=== PATIENT | female | born 1950 | race Caucasian/White ===

== ENCOUNTER 2017-12-03 18:39 | Inpatient (IN) | payer BC, MEDICARE ==
[~2017-12-03] VITALS: Ht 160 cm; Wt 94.9 kg
[2017-12-03] MEDS ORDERED: NORMAL SALINE IV SCH (18:47)
--- NOTE | 2017-12-03 19:05 | PHYS DOC ---
Adult General Chief Complaint Chief Complaint: weakness, fever HPI HPI Patient is a 67 year old female who presents with complaint of weakness. The patient states that she recently finished taking an antibiotic prescribed by her primary for treatment of urinary tract infection. Patient states that she stopped amoxicillin approximately one week ago. Patient states since treatment she has been feeling weaker. Patient notes that she has been having worsening weakness to the right side of her body which she reports has been present over the past week. The family states that the patient seemed to be leaning towards the right side when trying to ambulate and noticed this first last night. The patient has had history of stroke but patient denies having any residual unilateral deficits from her previous stroke. She states currently she is in no pain but feels very weak and is unable to ambulate under her own power currently. During triage patient found to have a fever. The patient states that she thinks she still has a urinary tract infection is getting sick because of this. Review of Systems Review of Systems Constitutional: Fever, chills[] Eyes: Denies change in visual acuity, redness, or eye pain [] HENT: Denies nasal congestion or sore throat [] Respiratory: Denies cough or shortness of breath [] Cardiovascular: Denies chest pain or edema[] GI: Denies abdominal pain, nausea, vomiting, bloody stools or diarrhea [] : Denies dysuria or hematuria [] Musculoskeletal: Denies back pain or joint pain [] Integument: Denies rash or skin lesions [] Neurologic: Right-sided weakness, denies headache [] Endocrine: Denies polyuria or polydipsia [] All other systems were reviewed and found to be within normal limits, except as documented in this note. Current Medications Current Medications Current Medications Medications (Trade) Dose Ordered Sig/[facility] Start Time Stop Time Status Last Admin Dose Admin Ceftriaxone Sodium 1 gm/ Sodium Chloride 50 ml @ 100 mls/hr 1X ONCE 12/03/17 19:00 12/03/17 19:29 UNV Sodium Chloride 1,560 ml @ 780 mls/hr Q2H 12/03/17 18:47 UNV Physical Exam Physical Exam Constitutional: Alert, afebrile, appears ill. [] HENT: Normocephalic, atraumatic, bilateral external ears normal, oropharynx dry , no oral exudates, nose normal. [] Eyes: PERRLA, EOMI, conjunctiva normal, no discharge. [] Neck: Normal range of motion, no tenderness, supple, no stridor. [] Cardiovascular: Tachycardic, regular rhythm, no murmur [] Lungs & Thorax: Bilateral breath sounds clear to auscultation [] Abdomen: Bowel sounds normal, soft, no tenderness, no masses, no pulsatile masses. [] Skin: Warm, dry, no erythema, no rash. [] Back: No tenderness, no CVA tenderness. [] Extremities: No tenderness, no cyanosis, no clubbing, ROM intact, trace pedal edema bilaterally. [] Neurologic: Alert and oriented X 3, 3.5 out of 5 motor strength in right upper and lower extremity, 4 out of 5 motor strength in left upper and lower extremity , no facial droop, no slurring of speech. [] Current Patient Data Lab Results Laboratory Tests Test 12/03/17 18:43 12/03/17 18:54 Urine Collection Type Unknown Urine Color Yellow Urine Clarity Cloudy Urine pH 6.0 Urine Specific [place] 1.010 Urine Protein 100 mg/dl Urine Glucose (UA) >=1000 mg/dL Urine Ketones (Stick) 40 mg/dL Urine Blood Small Urine Nitrite Neg Urine Bilirubin Neg Urine Urobilinogen Dipstick 0.2 mg/dL Urine Leukocyte Esterase Mod Urine RBC 6-10 /HPF Urine WBC >40 /HPF Urine Squamous Epithelial Cells Few /LPF Urine Bacteria Many /HPF Urine Yeast Present /HPF White Blood Count 7.8 x10^3/uL Red Blood Count 4.56 x10^6/uL Hemoglobin 13.9 g/dL Hematocrit 41.3 % Mean Corpuscular Volume 91 fL Mean Corpuscular Hemoglobin 30 pg Mean Corpuscular Hemoglobin Concent 34 g/dL Red Cell Distribution Width 13.4 % Platelet Count 215 x10^3/uL Neutrophils (%) (Auto) 82 % Lymphocytes (%) (Auto) 9 % Monocytes (%) (Auto) 8 % Eosinophils (%) (Auto) 0 % Basophils (%) (Auto) 1 % Neutrophils # (Auto) 6.4 x10^3uL Lymphocytes # (Auto) 0.7 x10^3/uL Monocytes # (Auto) 0.6 x10^3/uL Eosinophils # (Auto) 0.0 x10^3/uL Basophils # (Auto) 0.0 x10^3/uL Sodium Level 127 mmol/L Potassium Level 4.3 mmol/L Chloride Level 93 mmol/L Carbon Dioxide Level 20 mmol/L Anion Gap 14 Blood Urea Nitrogen 22 mg/dL Creatinine 1.2 mg/dL Estimated GFR (Cockcroft-Gault) 44.9 BUN/Creatinine Ratio 18 Glucose Level 420 mg/dL Lactic Acid Level 1.4 mmol/L Calcium Level 8.5 mg/dL Total Bilirubin 0.7 mg/dL Aspartate Amino Transf (AST/SGOT) 22 U/L Alanine Aminotransferase (ALT/SGPT) 21 U/L Alkaline Phosphatase 87 U/L Total Protein 7.2 g/dL Albumin 2.5 g/dL Albumin/Globulin Ratio 0.5 Lipase 94 U/L Current Medications Medications (Trade) Dose Ordered Sig/[facility]hma Route PRN Reason Start Time Stop Time Status Last Admin Dose Admin Sodium Chloride 1,560 ml @ 780 mls/hr Q2H IV 12/03/17 18:47 12/03/17 19:26 Ceftriaxone Sodium 1 gm/ Sodium Chloride 50 ml @ 100 mls/hr 1X ONCE IV 12/03/17 19:00 12/03/17 19:29 UNV Ceftriaxone Sodium (Rocephin) 1 gm 1X ONCE IVP 12/03/17 19:30 12/03/17 19:31 DC 12/03/17 19:26 Ceftriaxone Sodium (Rocephin) 1 gm STK-MED ONCE IV 12/03/17 19:20 12/03/17 19:21 DC EKG EKG Interpreted by me: Heart rate 91, sinus rhythm, normal intervals, normal axis, no acute ST/T-wave abnormalities present[] Radiology/Procedures Radiology/[place] [address] IMAGING REPORT Signed PATIENT: FRANK GOTTI ACCOUNT: [id number] : 1950 LOCATION: ER AGE: 67 SEX: F EXAM STATUS: REG ER ORD. PHYSICIAN: DANICA HECK MD REASON: right-sided weakness since last night PROCEDURE: CT HEAD WO CONTRAST CT HEAD WO CONTRAST History: right sided weakness since last night, history of breast cancer and uterine cancer Comparison: None. Technique: Noncontrast CT imaging was performed of the head. Exposure: One or more of the following individualized dose reduction techniques were utilized for this examination: 1. Automated exposure control 2. Adjustment of the mA and/or kV according to patient size 3. Use of iterative reconstruction technique. Findings: No acute extra-axial or parenchymal hemorrhage is identified. There is no significant intra-axial mass effect, midline shift, or extra-axial fluid collection. The cassidy-white differentiation of the major vascular territories is preserved. The ventricles, sulci, and cisterns are within normal limits in size and configuration. The mastoid air cells and the visualized paranasal sinuses are aerated. No acute calvarial abnormality is identified. Impression: 1. No acute intracranial abnormality is identified. If there is concern for evolving or acute ischemia, followup CT or MRI could be beneficial. Electronically signed by: Cruz Peoples MD (12/03/2017 7:27 PM) [facility] DICTATED AND SIGNED BY: CRUZ PEOPLES MD DATE: 12/03/171925 CC: DANICA HECK MD; AR DUONG ~ [] Course & Med Decision Making Course & Med Decision Making Pertinent Labs and Imaging studies reviewed. (See chart for details) The patient was started on IV fluids and started on IV Rocephin. The patient has confirmed evidence of active urinary tract infection with early findings of sepsis. The patient does not qualify for severe sepsis protocol at this time will need to be admitted to the hospital for further treatment. Patient's head CT was negative suggesting against acute stroke. The patient was admitted to Dr. Pratt. A consult placed to Dr. Dumont of neurology to follow the patient in hospital.[] Dragon Disclaimer Dragon Disclaimer This electronic medical record was generated, in whole or in part, using a voice recognition dictation system. Departure Departure: Impression: Primary Impression: Urinary tract infection Additional Impressions: Sepsis Uncontrolled diabetes mellitus Right sided weakness Disposition: ADMITTED INPATIENT Admitting Physician: Placido Pratt Condition: STABLE Referrals: AR DUONG (PCP) Problem Qualifiers Primary Impression: Urinary tract infection Urinary tract infection type: site unspecified Hematuria presence: without hematuria Qualified Codes: N39.0 - Urinary tract infection, site not specified Additional Impressions: Sepsis Sepsis type: sepsis due to unspecified organism Qualified Codes: A41.9 - Sepsis, unspecified organism Uncontrolled diabetes mellitus Diabetes mellitus type: type 2 Diabetes mellitus pig caster insulin use: unspecified retirement insulin use status Diabetes mellitus complication status : with hyperglycemia Qualified Codes: E11.65 - Type 2 diabetes mellitus with hyperglycemia DANICA HECK MD Dec 03, 2017 19:05
[2017-12-03] MEDS ORDERED: cefTRIAXone SODIUM 1 GM VIAL IV ONE (19:20)
[2017-12-03 19:23] LABS: BASO % 1 % (0-3); EOS % 0 % (0-3); HEMATOCRIT 41.3 % (36.0-47.0); HEMOGLOBIN 13.9 g/dL (12.0-15.5); LYMPH # 0.7 x10^3/uL (1.0-4.8); LYMPH % 9 % (24-48); MEAN CORPUSCULAR HEMOGLOBIN 30 pg (25-35); MEAN CORPUSCULAR HGB CONC 34 g/dL (31-37); MEAN CORPUSCULAR VOLUME 91 fL (79-100); MONO # 0.6 x10^3/uL (0.0-1.1); MONO % 8 % (0-9); NEUT # 6.4 x10^3uL (1.8-7.7); NEUT % 82 % (31-73); PLATELET COUNT 215 x10^3/uL (140-400); RED BLOOD COUNT 4.56 x10^6/uL (3.50-5.40); RED CELL DISTRIBUTION WIDTH 13.4 % (11.5-14.5); WHITE BLOOD COUNT 7.8 x10^3/uL (4.0-11.0)
--- NOTE | 2017-12-03 19:28 | EKG ---
[address] [address] Test Date: 2017-12-03 Test Time: 19:22:35 Pat Name: FRANK GOTTI Department: Room: Gender: F Wire Stitcher: WALT : 1950 Requested By: DANICA HECK Order Number: [id number] Reading MD: Claude Dutta MD Measurements Intervals [place] Rate: 91 P: 42 CT: 192 QRS: 19 QRSD: 80 T: 0 QT: 410 QTc: 506 Interpretive Statements SINUS RHYTHM PROLONGED QT Electronically Signed On 12-09-2017 13:40:19 CDT by Claude Dutta MD
[2017-12-03] MEDS ORDERED: cefTRIAXone IV Push 1 GM VIAL. IVP ONE (19:30)
--- NOTE | 2017-12-03 19:31 | RAD ---
CT HEAD WO CONTRAST History: right sided weakness since last night, history of breast cancer and uterine cancer Comparison: None. Technique: Noncontrast CT imaging was performed of the head. Exposure: One or more of the following individualized dose reduction techniques were utilized for this examination: 1. Automated exposure control 2. Adjustment of the mA and/or kV according to patient size 3. Use of iterative reconstruction technique. Findings: No acute extra-axial or parenchymal hemorrhage is identified. There is no significant intra-axial mass effect, midline shift, or extra-axial fluid collection. The cassidy-white differentiation of the major vascular territories is preserved. The ventricles, sulci, and cisterns are within normal limits in size and configuration. The mastoid air cells and the visualized paranasal sinuses are aerated. No acute calvarial abnormality is identified. Impression: 1. No acute intracranial abnormality is identified. If there is concern for evolving or acute ischemia, followup CT or MRI could be beneficial. Electronically signed by: Christ Jeffrey MD (12/03/2017 7:27 PM) [facility]
[2017-12-03 19:33] LABS: ALBUMIN 2.5 g/dL (3.4-5.0); ALBUMIN/GLOBULIN RATIO 0.5 (1.0-1.7); CALCIUM 8.5 mg/dL (8.5-10.1); CREATININE 1.2 mg/dL (0.6-1.0); GFR 44.9; POTASSIUM 4.3 mmol/L (3.5-5.1); TOTAL BILIRUBIN 0.7 mg/dL (0.2-1.0); TOTAL PROTEIN 7.2 g/dL (6.4-8.2)
[2017-12-03 19:44] LABS: BACTERIA,URINE MANY /HPF (0-FEW); BILIRUBIN,URINE NEG (NEG); CLARITY,URINE CLOUDY; COLOR,URINE YELLOW; GLUCOSE,URINE >=1000 mg/dL (NEG); NITRITE,URINE NEG (NEG); SQUAMOUS EPITHELIAL CELL,UR FEW /LPF; UROBILINOGEN,URINE 0.2 mg/dL (0.2 mg/dL); WBC,URINE >40 /HPF (0-4)
[2017-12-03 19:45] LABS: YEAST,URINE PRESENT /HPF
[2017-12-03] MEDS: IV NORMAL SALINE 1,000ML 1,000 ML IV SCH ×2 (20:15→23:42)
[2017-12-03] MEDS: INSULIN GLARGINE 300 UNITS/3 ML INSULN.PEN. SQ SCH (21:00)
[2017-12-03] MEDS ORDERED: FLUO40CA2 PO (22:51)
[2017-12-03] MEDS ORDERED: LISI-334 PO (22:51)
[2017-12-03] MEDS ORDERED: NADO20TA PO (22:51)
[2017-12-03] MEDS ORDERED: ALPR1TAB5 PO (22:51)
[2017-12-03] MEDS ORDERED: OMEG-91 PO (22:51)
[2017-12-03] MEDS ORDERED: RANI150C PO (22:51)
[2017-12-03] MEDS ORDERED: PHEN-443 PO (22:51)
[2017-12-03] MEDS ORDERED: ASPI325T8 PO (23:12)
[2017-12-03 23:21] VITALS: BP 119/55
[2017-12-03] MEDS ORDERED: IBUP400T18 PO (23:39)
[2017-12-04] MEDS: IBUPROFEN 400 MG TABLET. PO PRN (00:22)
[2017-12-04 06:07] VITALS: BP 105/66
[2017-12-04] MEDS ORDERED: ALPRAZolam 0.5 MG TABLET PO PRN (06:45)
[2017-12-04] MEDS ORDERED: IBUPROFEN 400 MG TABLET. PO PRN (06:45)
[2017-12-04 07:04] LABS: BASO % 0 % (0-3); CALCIUM 7.9 mg/dL (8.5-10.1); EOS % 0 % (0-3); GFR 55.5; HEMATOCRIT 37.9 % (36.0-47.0); HEMOGLOBIN 12.6 g/dL (12.0-15.5); LYMPH # 0.9 x10^3/uL (1.0-4.8); LYMPH % 10 % (24-48); MEAN CORPUSCULAR HEMOGLOBIN 30 pg (25-35); MEAN CORPUSCULAR HGB CONC 33 g/dL (31-37); MEAN CORPUSCULAR VOLUME 92 fL (79-100); MONO % 11 % (0-9); NEUT # 6.9 x10^3uL (1.8-7.7); NEUT % 79 % (31-73); PLATELET COUNT 176 x10^3/uL (140-400); POTASSIUM 3.8 mmol/L (3.5-5.1); RED BLOOD COUNT 4.15 x10^6/uL (3.50-5.40); RED CELL DISTRIBUTION WIDTH 13.2 % (11.5-14.5); WHITE BLOOD COUNT 8.8 x10^3/uL (4.0-11.0)
--- NOTE | 2017-12-04 07:58 | RAD ---
Chest radiograph 12/03/2017 7:19 PM INDICATION: Chest pain, right arm weakness COMPARISON: None available TECHNIQUE: Portable upright frontal view of the chest is provided. FINDINGS: The cardiomediastinal silhouette is within normal limits. There are no pleural effusions. There is no pulmonary vascular congestion. There is no pneumothorax. The lungs are clear. No significant osseous abnormality is identified. IMPRESSION: No acute cardiopulmonary process. Electronically signed by: Meera Agarwal MD (12/04/2017 7:55 AM) [facility]
[2017-12-04] MEDS: METOPROLOL TART IMMED RELEASE 25 MG TABLET PO SCH ×3 (09:00→21:00)
[2017-12-04] MEDS: OMEGA-3 FATTY ACIDS/FISH OIL 1,000 MG CAPSULE. PO SCH ×2 (09:16→21:27)
[2017-12-04] MEDS: ASPIRIN 325 MG TABLET PO SCH (09:16)
[2017-12-04] MEDS: LISINOPRIL 20 MG TABLET PO SCH (09:17)
[2017-12-04] MEDS: FLUoxetine HCL 20 MG CAPSULE PO SCH (09:17)
[2017-12-04] MEDS ORDERED: DEXTROSE 50% 25 GM / 50ML DISP.SYRIN. IV PRN ×2 (10:30→12:00)
[2017-12-04 11:17] VITALS: BP 124/64
[2017-12-04] MEDS: ONDANSETRON PF 4 MG/2 ML VIAL. IV PRN ×2 (11:22→16:58)
[2017-12-04] MEDS ORDERED: INSULIN LISPRO 300 UNITS/3 ML INSULN.PEN. SQ SCH (12:00)
[2017-12-04] MEDS: INSULIN LISPRO 300 UNITS/3 ML INSULN.PEN. SQ SCH ×2 (12:12→17:19)
[2017-12-04 16:00] VITALS: BP 95/60
[2017-12-04] MEDS: IV NORMAL SALINE 1,000ML 1,000 ML IV SCH (17:15)
[2017-12-04] MEDS: cefTRIAXone IV Push 1 GM VIAL. IVP SCH (17:17)
--- NOTE | 2017-12-04 18:27 | PN ---
DATE: 12/04/2017 HISTORY OF PRESENT ILLNESS: The patient is a 67-year-old female patient who came to the Emergency Room with complaint of weakness. The patient stated that she recently finished taking her antibiotic prescribed by primary care physician for urinary tract infection. She stopped amoxicillin approximately 1 week ago. The patient states that at one stage since treatment has been feeling weaker. The patient notes that she has been having worsening weakness of the right side of her body, which she reports has been present over the past week. The family states that the patient seems to be leaning towards the right side when trying to ambulate and noted that had a stressed last night. The patient had a history of stroke, but the patient denies having any residual unilateral deficit from her previous stroke. She states she is currently in no pain but feels it very weak and is unable to ambulate under her own power. Currently, during the tries, the patient found to have fever, states that she thinks that she did have urinary tract infection. She was extensively evaluated in the Emergency Room and was admitted with urinary tract infection, sepsis, uncontrolled diabetes, and right-sided weakness. Apparently, the patient has been on insulin for almost 4 months now. PAST MEDICAL HISTORY: Her past medical history is significant for type 2 diabetes, hypertension, hyperlipidemia, myocardial infarction in 2010, morbid obesity, obstructive sleep apnea some form of malabsorption. PAST SURGICAL HISTORY: Past surgical history is significant for tubal ligation, cholecystectomy, appendectomy, total abdominal hysterectomy, colonoscopy, and polypectomy, left breast cancer, status post lumpectomy with chemo and radiation therapy, shoulder surgery, cataract extraction. ALLERGIES: SHE IS ALLERGIC TO SULFA DRUGS, ACETAMINOPHEN, ADHESIVES, CODEINE, AND LATEX. FAMILY HISTORY: She has 4 brothers and 1 sister. Her father because of aortic aneurysm rupture and mother because of end-stage renal disease at the age of 70. SOCIAL HISTORY: She is from her for the last 30 years. She has 2 daughters and 1 son. She never smoked, does not drink alcohol. She is retired from the 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 REVIEW OF SYSTEMS: As per history of present illness. PHYSICAL EXAMINATION: GENERAL: On examining her on arrival to the Emergency Room, she looked well and was clearly in no apparent distress. She was pale, no jaundice, cyanosis, or thyromegaly. No jugular venous distension. No lower limb edema. VITAL SIGNS: Her heart rate was 91, blood pressure was 133/58, temperature was 102.4, respiratory rate was 20, and oxygen saturation was 98%. HEAD, EYES, EARS, NOSE, AND THROAT: Showed normocephalic, atraumatic. NECK: Supple. HEART: Showed normal first and second heart sounds with no gallop, rub or murmur. CHEST: Clear to auscultation. No crepitation or rhonchi. ABDOMEN: Distended, soft, nontender. No guarding or rigidity. No organomegaly. Hernial orifice is intact. Bowel sounds normal. NEUROLOGIC: She was awake, alert, responding appropriately. Cranial nerves are intact. She apparently was noted to have some weakness in the right side. LABORATORY DATA: Her lab work on admission showed a white cell count was 7800, hemoglobin 13, hematocrit 41, MCV 91, and platelet count of 215,000. Her chemistry showed a serum sodium of 127, potassium 4.3, chloride 93, bicarbonate 20, anion gap of 14, BUN 22, creatinine 1.2, estimated GFR was 44 mL per minute. Her glucose was 420, calcium was 8.5. Total bilirubin, AST, ALT, alkaline phosphatase were normal. Total protein 7.2, albumin 2.5. Her urinalysis showed the urine was yellow, cloudy with the pH of 6, specific gravity of 1.010. There was large amount of protein, large amount of glucose, trace of ketones, small amount of blood, negative for nitrite, and the moderate amount of leukocyte esterase, 6-10 RBCs, more than 40 WBCs, and too many bacteria. ASSESSMENT AND PLAN: The patient was admitted and was continued her medication and started on IV antibiotic in the form of ceftriaxone, started on insulin sliding scale, and we will obviously control her blood sugar and consult Dr. Dumont for evaluation and treatment. ERICKA BLANCAS MD DR: ABBY/lito JOB#: [id number] / [id number]
[2017-12-04 19:40] VITALS: BP 95/58
[2017-12-04] MEDS: LACTOBACILLUS RHAMNOSUS GG 1 CAPSULE. PO SCH (21:00)
[2017-12-04] MEDS: FAMOTIDINE 20 MG TABLET PO SCH (21:27)
[2017-12-04] MEDS: INSULIN GLARGINE 300 UNITS/3 ML INSULN.PEN. SQ SCH (21:30)
[2017-12-04 23:13] VITALS: BP 128/92
[2017-12-05] MEDS ORDERED: ONDANSETRON PF 4 MG/2 ML VIAL. IV PRN (01:45)
[2017-12-05 05:41] VITALS: BP 117/67
[2017-12-05] MEDS: INSULIN LISPRO 300 UNITS/3 ML INSULN.PEN. SQ SCH ×4 (09:43→17:57)
[2017-12-05] MEDS: OMEGA-3 FATTY ACIDS/FISH OIL 1,000 MG CAPSULE. PO SCH ×2 (09:44→21:20)
[2017-12-05] MEDS: ASPIRIN 325 MG TABLET PO SCH (09:44)
[2017-12-05] MEDS: LACTOBACILLUS RHAMNOSUS GG 1 CAPSULE. PO SCH ×2 (09:44→21:00)
[2017-12-05] MEDS: LISINOPRIL 20 MG TABLET PO SCH (09:44)
[2017-12-05] MEDS: METOPROLOL TART IMMED RELEASE 25 MG TABLET PO SCH ×2 (09:45→21:00)
[2017-12-05] MEDS: FLUoxetine HCL 20 MG CAPSULE PO SCH (09:45)
[2017-12-05] MEDS ORDERED: PROMETHAZINE 12.5 MG in IV NORMAL SALINE 50ML 50 ML IV PRN (11:00)
[2017-12-05] MEDS ORDERED: METOCLOPRAMIDE HCL 10 MG/2 ML VIAL. IV PRN (11:15)
[2017-12-05 11:43] VITALS: BP 125/75
[2017-12-05 16:12] VITALS: BP 106/64
[2017-12-05] MEDS: cefTRIAXone IV Push 1 GM VIAL. IVP SCH (17:55)
[2017-12-05 19:52] VITALS: BP 133/72
[2017-12-05] MEDS: INSULIN GLARGINE 300 UNITS/3 ML INSULN.PEN. SQ SCH (21:00)
[2017-12-05] MEDS: FAMOTIDINE 20 MG TABLET PO SCH (21:20)
[2017-12-05] MEDS: IBUPROFEN 400 MG TABLET. PO PRN (21:20)
--- NOTE | 2017-12-06 00:45 | PN ---
DATE: 12/05/2017 SUBJECTIVE: The patient is resting slightly propped up in bed, using her BiPAP machine. She is awake, alert. On questioning her, she stated that she is feeling much better. She did not have an episode of nausea this morning, responded very well to Reglan. She has been up and about, walking on her own to the bathroom without any assistance. Unfortunately, her blood cultures have grown gram-negative rods in 3/4 bottles. PHYSICAL EXAMINATION: GENERAL: When I examined her, she was pale, but no jaundice or cyanosis. No lymphadenopathy, no thyromegaly. No jugular venous distention. No lower limb edema. VITAL SIGNS: Her heart rate was 83, blood pressure 125/75, temperature was 98.7, respiratory rate was 20 and oxygen saturation was 95% on room air. HEAD, EYES, EARS, NOSE AND THROAT: Showed normocephalic, atraumatic. NECK: Supple. HEART: Showed normal first and second heart sounds with no gallop, rub or murmur. CHEST: Clear to auscultation. No crepitation or rhonchi. ABDOMEN: Distended, soft, nontender. No guarding or rigidity. No organomegaly. Hernial orifice intact. Bowel sounds normal. NEUROLOGIC: She was awake, alert, responding appropriately. All her cranial nerves are intact. She moves extremities without difficulty. She ambulates without assistance or assistive devices. Her intake was 2500. No output was recorded. LABORATORY DATA: This morning showed her white cell count was 8800, hemoglobin 12.6, hematocrit 37.9, MCV 92 and platelet count of 176,000. Her chemistry showed that her serum sodium was 134, potassium 3.8, chloride 101, bicarbonate 16. Her anion gap of 17, BUN 18, creatinine 1. Estimated GFR was 55 mL per minute. Her glucose was 331 mg/dL. Calcium was 7.9. ASSESSMENT: 1. Weakness and what seemed to be right-sided hemiparesis. The patient seems to be back to her normal self today, poorly controlled type 2 diabetes with blood sugars in the 300s. 2. Urinary tract infection. 3. Hypertension seems to be well-controlled. 4. Hyperlipidemia. 5. She has history of myocardial infarction, morbid obesity, obstructive sleep apnea and some form of malabsorption. 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 She has also gram-negative bacteremia and the patient wanted to go home, but I recommended that we will continue on IV antibiotic. Await the result of the culture and sensitivity before we decide on further management. ERICKA BLANCAS MD DR: ABBY/lito JOB#: [id number] / [id number]
--- NOTE | 2017-12-06 01:02 | PN ---
DATE: 12/05/2017 SUBJECTIVE: The patient has had an epigastric pain and nausea since last night and she related that to "Zofran", which was placed by Reglan without any symptoms. The patient has been walking in the room and using the bathroom without difficulties. OBJECTIVE: GENERAL: Obese white female, not in acute distress. VITAL SIGNS: Blood pressure 117/67, respiratory rate 20, pulse is 87, temperature is 98.7, oxygen saturation 95% on room air. HEENT: Normocephalic, atraumatic, otherwise, unremarkable. NECK: Supple. Negative for carotid bruit, lymphadenopathy or thyromegaly. LUNGS: Clear to A and P. CARDIOVASCULAR: Regular rate and rhythm. Normal S1, S2. There is no S3, S4, or murmur. ABDOMEN: Soft. Bowel sounds positive. EXTREMITIES: Negative for cyanosis, clubbing or pitting edema. NEUROLOGICAL EXAM: Mental Status: Normal mental status and intact cranial nerves. There is no focal, motor or sensory deficit. Deep tendon reflexes were symmetric and hypoactive without pathologic responses. Gait: The patient uses a walker for ambulation. IMPRESSION: 1. One week-history of generalized weakness -- improved. 2. History of seizure, but she is not on medication. 3. Depression, anxiety, hypertension, hyperlipidemia, diabetes mellitus. 4. Urinary tract infections. RECOMMENDATIONS: Continue with current management initiated by Dr. Pratt. M Belen PEREZ MD DR: LIANG/lito JOB#: [id number] / [id number]
--- NOTE | 2017-12-06 01:43 | CONS ---
DATE OF CONSULTATION: 12/04/2017 NEUROLOGY CONSULTATION REFERRING PHYSICIAN: Dr. Placido Pratt. REASON FOR CONSULTATION: Generalized weakness. HISTORY OF PRESENT ILLNESS: This is a 67-year-old right-handed female, who was admitted through Emergency Room with 1-week history of generalized weakness, more prominent on the right side. The symptoms have been present for approximately one week, but has been progressively worse recent in the last 2 days. The patient denies any head injuries or falls. She also complains of chronic lower back pain radiating into the lower extremities and she related that to degenerative disk disease, which required 4 epidural blocks. She has recently noticed decreased range of motions of the right shoulder and she related that to a previous right shoulder surgery for rotator cuff repair 4 years ago. 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 Her vitamin D has been very low despite taking her vitamin D on a regular basis. 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 Therefore, she received Genotropin. She described it as growth hormone factor. The patient used Genotropin since that time until last year when it was discontinued because of effect that medicine on the pituitary gland or growth and hirsutism. The patient denies headaches, visual disturbances, nausea, vomiting, chest pain, shortness of breath or palpitations. PAST MEDICAL HISTORY: Significant for seizure disorder diagnosed at the age of 16, and she described it as grand mal type seizure. The last seizure was 18 months ago. Status post myocardial infarction during a bariatric surgery in 2010, diabetes mellitus type 2, hypertension, hyperlipidemia, coronary artery disease, morbid obesity, and obstructive sleep apnea. PAST SURGICAL HISTORY: Significant for tubal ligations, cholecystectomy, total abdominal hysterectomy, appendectomy and polypectomy left breast due to cancer, required chemotherapy and radiation therapy as well and cataract extractions. SOCIAL HISTORY: The patient is for the last 3 years. She has two daughters and one son. She denies smoking, alcohol drinking, or illicit drug use. She is retired from [employer]. FAMILY HISTORY: Father of aortic aneurysm rupture and mother with end-stage of renal disease at the age of 70. ALLERGIES: SULFA DRUGS, TYLENOL, ADHESIVE, CODEINE AND LATEX. PHYSICAL EXAMINATION: GENERAL: female, not in acute distress. She weighs 212 pounds. VITAL SIGNS: Blood pressure 128/92, respiratory rate 20, pulse is 81, temperature 98.3, and oxygen saturation 94% on room air. HEENT: Normocephalic, atraumatic, otherwise unremarkable. NECK: Supple. Negative for carotid bruit, lymphadenopathy or thyromegaly. LUNGS: Clear to A and P. CARDIOVASCULAR: Regular rate and rhythm. Normal S1, S2. There is no S3, S4 or murmur. ABDOMEN: Soft. Bowel sounds positive. EXTREMITIES: Negative for cyanosis, clubbing, or pitting edema. NEUROLOGIC: MENTAL STATUS: The patient is alert and oriented x 3. The speech is fluent. There is no language dysfunction. Memory, judgment and abstracting thinking are normal. The patient denies hallucination or delusion. CRANIAL NERVES: Visual arteaga, the pupils are reactive to light and accommodation. The extraocular movements are intact. There is no nystagmus. There is no facial motor or sensory deficit. Hearing is intact bilaterally. The palate is elevated symmetrically. Sternocleidomastoid muscles are powerful bilaterally. The patient shrugs her shoulders symmetrically, protrudes her tongue in the midline without fasciculation or atrophy. MOTOR: No focal muscle bulk was seen. The tone is normal. The strength is 5/5 throughout. Sensory examination revealed normal pinprick, light touch, vibratory and position senses. Deep tendon reflexes were symmetric and hypoactive with absent Achilles responses. Gait and coordination are normal. LABORATORY DATA: CBC revealed white blood cells of 8800, hemoglobin 12.6, hematocrit 37.9, and platelet count of 176,000. Chemistry revealed sodium of 134, potassium of 3.8, chloride 101, CO2 of 16, BUN 18, creatinine 1, glucose 331, and lactic acid 1.4. Liver enzymes are normal. Urinalysis is positive for urinary tract infections with white blood cells more than 40 with moderate urinary leukocyte esterase and many bacteria. DIAGNOSTIC DATA: Nonenhanced CT scan revealed no evidence of acute intracranial process, otherwise unremarkable and a chest x-ray revealed no evidence of acute cardiopulmonary process. IMPRESSION: 1. A 1-week history of generalized weakness with normal current neurological examination. 2. History of seizure disorder, on Keppra. 3. Multiple medical problems include obesity, obstructive sleep apnea, hypertension, hyperlipidemia, diabetes mellitus, and chronic lower back pain. 4. Urinary tract infections. RECOMMENDATIONS: 1. Treat the underlying infections. 2. Physical therapy as tolerated. 3. Aggressive weight loss. 4. Continue with current management initiated by Dr. Pratt. CURRENT MEDICATIONS: Ibuprofen 400 mg q.6 hours p.r.n., alprazolam 1 mg p.r.n. for anxiety, aspirin 325 mg, lisinopril 20 mg daily, Prozac 40 mg daily, metoprolol 25 mg twice daily, fish oil, insulin Humalog on sliding scale, Pepcid 20 mg daily, Zofran 4 mg IV q.4 hours p.r.n. for nausea and vomiting, and insulin Lantus ____ units at bedtime. M Belen PEREZ MD DR: LIANG/lito JOB#: [id number] / [id number]
[2017-12-06 05:40] VITALS: BP 119/69
[2017-12-06 07:06] LABS: HEMATOCRIT 35.5 % (36.0-47.0); HEMOGLOBIN 11.9 g/dL (12.0-15.5); RED BLOOD COUNT 3.95 x10^6/uL (3.50-5.40); RED CELL DISTRIBUTION WIDTH 13.2 % (11.5-14.5)
[2017-12-06 07:17] LABS: ALBUMIN 1.9 g/dL (3.4-5.0); ALBUMIN/GLOBULIN RATIO 0.4 (1.0-1.7); CALCIUM 8.5 mg/dL (8.5-10.1); CREATININE 0.7 mg/dL (0.6-1.0); GFR 83.7; POTASSIUM 3.4 mmol/L (3.5-5.1); TOTAL BILIRUBIN 0.4 mg/dL (0.2-1.0); TOTAL PROTEIN 6.4 g/dL (6.4-8.2)
[2017-12-06] MEDS: LACTOBACILLUS RHAMNOSUS GG 1 CAPSULE. PO SCH ×2 (08:36→20:17)
[2017-12-06] MEDS: METOPROLOL TART IMMED RELEASE 25 MG TABLET PO SCH ×2 (08:36→20:17)
[2017-12-06] MEDS: ASPIRIN 325 MG TABLET PO SCH (08:37)
[2017-12-06] MEDS: LISINOPRIL 20 MG TABLET PO SCH (08:37)
[2017-12-06] MEDS: FLUoxetine HCL 20 MG CAPSULE PO SCH (08:37)
[2017-12-06] MEDS: OMEGA-3 FATTY ACIDS/FISH OIL 1,000 MG CAPSULE. PO SCH ×2 (08:38→20:16)
[2017-12-06] MEDS: INSULIN LISPRO 300 UNITS/3 ML INSULN.PEN. SQ SCH ×6 (08:42→16:42)
[2017-12-06 10:45] VITALS: BP 147/83
[2017-12-06 14:29] VITALS: BP 142/84
[2017-12-06] MEDS: IBUPROFEN 400 MG TABLET. PO PRN (16:51)
[2017-12-06] MEDS: cefTRIAXone IV Push 1 GM VIAL. IVP SCH (16:52)
[2017-12-06 19:00] VITALS: BP 149/76
[2017-12-06] MEDS: FAMOTIDINE 20 MG TABLET PO SCH (20:16)
[2017-12-06] MEDS: INSULIN GLARGINE 300 UNITS/3 ML INSULN.PEN. SQ SCH (20:17)
--- NOTE | 2017-12-06 21:37 | PN ---
DATE: 12/06/2017 SUBJECTIVE: The patient denies any new medical or neurological complaints. OBJECTIVE: GENERAL: Obese female, not in acute distress. VITAL SIGNS: Blood pressure 119/69, respiratory rate 20, pulse is 74, temperature is 98.3, oxygen saturation is 95% on room air. HEENT: Normocephalic, atraumatic, otherwise unremarkable. NECK: Supple. Negative for carotid bruit, lymphadenopathy, or thyromegaly. LUNGS: Clear to A and P. CARDIOVASCULAR: Regular rate and rhythm, normal S1, S2. ABDOMEN: Soft. Bowel sounds positive. EXTREMITIES: Negative for cyanosis, clubbing, or pitting edema. NEUROLOGICAL: Mental Status: The patient is alert and oriented x 3. Speech is fluent. There is no language dysfunction. Cranial nerves are intact. No focal motor or sensory deficit. Deep tendon reflexes were symmetric and active without pathology responses. Gait and coordination are normal. LABORATORY DATA: CBC revealed white blood cells of 10, hemoglobin 11.9, hematocrit 35.5, platelet count 184,000. Chemistry revealed sodium of 136, potassium 3.4, chloride 102, CO2 18, BUN 12, creatinine 0.7, glucose 222, calcium 8.9. Blood culture revealed Gram-negative rods. Urine culture, no growth. IMPRESSION: 1. One week history of generalized weakness -- resolved. 2. History of seizure, but she is not on any medications. The patient stated her last seizure was 8 months ago. 3. Multiple medical problems include depression, anxiety, hypertension, hyperlipidemia, diabetes mellitus. 4. Urinary tract infections. RECOMMENDATIONS: 1. Continue with current management initiated by Dr. Pratt. 2. Await blood culture and sensitivities. M Belen PEREZ MD DR: LIANG/lito JOB#: [id number] / [id number]
--- NOTE | 2017-12-06 22:53 | PN ---
DATE: 12/06/2017 SUBJECTIVE: The patient is resting slightly propped up in bed, in no apparent respiratory distress. She is awake, alert. On questioning her, denied any complaint. She has been up and about in her room. She is unable to come to the outside as she has severe agoraphobia. Her blood cultures have grown gram-negative rods. Unfortunately, identification and sensitivity still pending. I spoke with the [facility] and hoping to get more answers tomorrow. However, the patient is clinically stable. She is responding to IV ceftriaxone. PHYSICAL EXAMINATION: GENERAL: When I examined her, she looked pale, no jaundice, cyanosis, or thyromegaly. No jugular venous distension. No limb edema. VITAL SIGNS: Her heart rate was 82, blood pressure 147/83, temperature was 98.2, respiratory rate 20, and oxygen saturation was 98% on room air. HEAD, EYES, EARS, NOSE, AND THROAT: Normocephalic, atraumatic. NECK: Supple. HEART: Showed normal first and second heart sounds with no gallop, rub, or murmur. CHEST: Clear to auscultation. No crepitation or rhonchi. ABDOMEN: Distended, soft, nontender. No guarding or rigidity. No organomegaly. All hernial orifice intact. Bowel sounds normal. NEUROLOGIC: She was awake, alert, responding appropriately. All cranial nerves intact. She moves extremities without difficulty. She ambulates without assistance or assistive devices. Her intake was 1400, no output was recorded. LABORATORY DATA: Her lab work this morning showed a white cell count of 10,000, hemoglobin 11, hematocrit 35, MCV 90, and platelet count of 184,000. Serum sodium was 136, potassium 3.4, chloride 102, bicarbonate 18, anion gap of 16, glucose was 12, creatinine was 0.7, estimated GFR was 84 mL per minute. Her glucose 122, calcium was 8.5. Total bilirubin, AST, ALT, alkaline phosphatase were normal. Total protein 6.4, albumin 1.9. ASSESSMENT: 1. Generalized weakness, improving. 2. Poorly controlled diabetes as she ran out of her insulin 4-5 months ago. 3. Urinary tract infection; however, the urine culture is so far negative, but the blood cultures are showing gram-negative rods. Unfortunately, the identification and sensitivity still pending. 4. Hypertension, well controlled. 5. Hyperlipidemia. 6. History of myocardial infarction. 7. Morbid obesity and obstructive sleep apnea. ERICKA BLANCAS MD DR: ABBY/lito JOB#: [id number] / [id number]
[2017-12-06 23:35] VITALS: BP 121/73
[2017-12-07 01:08] LABS: HEMOGLOBIN A1C 11.2 % (4.8-5.6)
[2017-12-07 05:47] VITALS: BP 161/83
[2017-12-07 06:22] LABS: CALCIUM 8.8 mg/dL (8.5-10.1); CREATININE 0.7 mg/dL (0.6-1.0); GFR 83.7; POTASSIUM 3.3 mmol/L (3.5-5.1)
[2017-12-07] MEDS: ASPIRIN 325 MG TABLET PO SCH (08:16)
[2017-12-07] MEDS: FLUoxetine HCL 20 MG CAPSULE PO SCH (08:16)
[2017-12-07] MEDS: OMEGA-3 FATTY ACIDS/FISH OIL 1,000 MG CAPSULE. PO SCH ×2 (08:16→21:35)
[2017-12-07] MEDS: LISINOPRIL 20 MG TABLET PO SCH (08:16)
[2017-12-07] MEDS: INSULIN LISPRO 300 UNITS/3 ML INSULN.PEN. SQ SCH ×6 (08:21→17:28)
[2017-12-07] MEDS: LACTOBACILLUS RHAMNOSUS GG 1 CAPSULE. PO SCH ×2 (08:28→21:00)
[2017-12-07] MEDS: METOPROLOL TART IMMED RELEASE 25 MG TABLET PO SCH ×2 (08:29→21:00)
[2017-12-07 11:15] VITALS: BP 141/70
[2017-12-07] MEDS: POTASSIUM CHLORIDE 20 MEQ TABLET.ER. PO SCH ×2 (14:33→21:33)
[2017-12-07 16:46] VITALS: BP 154/68
[2017-12-07] MEDS: cefTRIAXone IV Push 1 GM VIAL. IVP SCH (17:23)
[2017-12-07 19:00] VITALS: BP 142/82
[2017-12-07] MEDS: INSULIN GLARGINE 300 UNITS/3 ML INSULN.PEN. SQ SCH (21:00)
[2017-12-07] MEDS: FAMOTIDINE 20 MG TABLET PO SCH (21:35)
--- NOTE | 2017-12-08 01:15 | PN ---
DATE: SUBJECTIVE: The patient denies any new medical or neurological complaints. Her blood sugar still high. OBJECTIVE: GENERAL: Obese white female, not in acute distress. VITAL SIGNS: Blood pressure 141/70, respiratory rate 18, pulse is 75, temperature 97.9, oxygen saturation is 94% on room air. HEENT: Normocephalic, atraumatic, otherwise unremarkable. NECK: Supple, negative for carotid bruit, lymphadenopathy or thyromegaly. LUNGS: Are clear to A and P. CARDIOVASCULAR: Regular rate and rhythm, normal S1, S2. There is no S3, S4, or murmur. ABDOMEN: Soft. Bowel sounds positive. EXTREMITIES: Are negative for cyanosis, clubbing, or pitting edema. NEUROLOGICAL EXAMINATION: Normal mental status and intact cranial nerves. No focal motor or sensory deficit. Deep tendon reflexes were symmetric and active without pathology responses. Romberg's sign is positive. Gait and coordinations are normal. LABORATORY DATA: Chemistry reveals sodium 137, potassium 3.3, chloride 102, CO2 of 21, BUN 12, creatinine 0.7, glucose 213, calcium is 8.8. IMPRESSION: 1. Generalized weakness -- improved. 2. Multiple medical problems include diabetes mellitus, hypertension, hyperlipidemia, depression, and anxiety. 3. Urinary tract infections. RECOMMENDATIONS: Continue with current management initiated by Dr. Pratt. The patient is neurologically stable. M Belen PEREZ MD DR: LIANG/lito JOB#: [id number] / [id number]
--- NOTE | 2017-12-08 01:40 | PN ---
DATE: 12/07/2017 SUBJECTIVE: The patient is resting, slightly propped up in bed, in no apparent respiratory distress. She is awake, alert. Denied any complaint, but apparently, the patient refused her metoprolol, Lantus, and Culturelle. Her blood was sent to [place] and hopefully we might have the result of the cultures today, but most likely tomorrow her urine culture has finally grown more than 100,000 colony forming units of Escherichia coli sensitive to most antibiotics except the ampicillin and piperacillin. Her blood cultures identification and sensitivity, the gram-negative rods in the blood culture is still pending at the time of this dictation. PHYSICAL EXAMINATION: GENERAL: When I examined her, she was pale, but no jaundice, cyanosis, or thyromegaly. No jugular venous distention. No limb edema. VITAL SIGNS: Her heart rate was 78, blood pressure 161/83, temperature was 97.8, respiratory rate 20, and oxygen saturation was 97%. The rest of clinical examination is unremarkable. Her intake was 1814, no output was recorded. LABORATORY DATA: Her lab work this morning showed a serum sodium 137, potassium 3.3, chloride 102, bicarbonate 21, anion gap of 14, BUN 12, creatinine was 0.7, estimated GFR was 84 mL per minute. Her glucose was 129, calcium was 8.8. Her white cell count was 10,000, hemoglobin 12, hematocrit 35, MCV 90, and platelet count of 184,000. ASSESSMENT: 1. Generalized weakness, improving. 2. Poorly controlled diabetes. She ran out of her insulin 4-5 months ago. She is actually now refusing her Lantus. 3. Urinary tract infection. Urine culture growing Escherichia coli sensitive to all the antibiotics except penicillin. Blood cultures showed growth of gram-negative rods. Unfortunately, the identification and sensitivity still pending. 4. Hypertension, reasonably controlled, although the patient refused to take her metoprolol. 5. Hyperlipidemia. 6. History of myocardial infarction. 7. Morbid obesity and obstructive sleep apnea, on BiPAP. PLAN: To continue with IV ceftriaxone and await the results of the culture tomorrow and decide on further management accordingly. ERICKA BLANCAS MD DR: ABBY/lito JOB#: [id number] / [id number]
[2017-12-08 05:56] VITALS: BP 164/81
[2017-12-08 07:48] LABS: CALCIUM 8.6 mg/dL (8.5-10.1); CREATININE 0.6 mg/dL (0.6-1.0); POTASSIUM 3.7 mmol/L (3.5-5.1)
[2017-12-08] MEDS: ASPIRIN 325 MG TABLET PO SCH (08:42)
[2017-12-08] MEDS: OMEGA-3 FATTY ACIDS/FISH OIL 1,000 MG CAPSULE. PO SCH (08:42)
[2017-12-08] MEDS: LISINOPRIL 20 MG TABLET PO SCH (08:42)
[2017-12-08] MEDS: POTASSIUM CHLORIDE 20 MEQ TABLET.ER. PO SCH ×2 (08:43→15:05)
[2017-12-08] MEDS: LACTOBACILLUS RHAMNOSUS GG 1 CAPSULE. PO SCH (08:43)
[2017-12-08] MEDS: FLUoxetine HCL 20 MG CAPSULE PO SCH (08:43)
[2017-12-08] MEDS: METOPROLOL TART IMMED RELEASE 25 MG TABLET PO SCH (08:43)
[2017-12-08] MEDS: INSULIN LISPRO 300 UNITS/3 ML INSULN.PEN. SQ SCH ×6 (08:50→17:15)
[2017-12-08 10:27] VITALS: BP 152/69
[2017-12-08 15:01] VITALS: BP 150/78
[2017-12-08] MEDS: cefTRIAXone IV Push 1 GM VIAL. IVP SCH (17:13)
[2017-12-08] MEDS ORDERED: CEFU500T46 PO ×2 (17:30→17:32)
--- NOTE | 2017-12-08 23:20 | PN ---
DATE: 12/08/2017 SUBJECTIVE: The patient denies any new medical or neurological complaints. She refused metoprolol and Lantus. She said her urine today is more clear and she did not have any urgency or burning on urination. OBJECTIVE: GENERAL: Obese white female, in no acute distress. VITAL SIGNS: Blood pressure 152/69, respiratory rate 20, pulse 75, temperature 98.2, oxygen saturation 97% on room air. HEENT: Normocephalic, atraumatic, otherwise, unremarkable. NECK: Supple. Negative for carotid bruit, lymphadenopathy or thyromegaly. LUNGS: Clear to A and P. CARDIOVASCULAR: Regular rate and rhythm, normal S1, S2. There is no S3, S4 or murmur. ABDOMEN: Soft. Bowel sounds positive. EXTREMITIES: Negative for cyanosis, clubbing or pitting edema. NEUROLOGIC: Mental status: The patient is alert and oriented x 3. Speech is fluent. There is no language dysfunction; otherwise, unremarkable. Cranial nerves are intact. Motor examination: No focal muscle bulk was seen. The tone is normal. The strength is 5/5 throughout. Sensory examination revealed normal pinprick, light touch, vibratory and position senses. Deep tendon reflexes were symmetric and active without pathologic responses. Gait and coordination are normal. IMPRESSION: 1. Generalized weakness -- improved. 2. Multiple medical problems include hypertension, hyperlipidemia, diabetes mellitus, coronary artery disease, depression, anxiety. 3. Urinary tract infections on antibiotics. RECOMMENDATIONS: Continue with current management initiated by Dr. Pratt. The patient is neurologically stable. M Belen PEREZ MD DR: LIANG/lito JOB#: [id number] / [id number]
--- NOTE | 2017-12-09 01:15 | PN ---
DATE: 12/08/2017 SUBJECTIVE: The patient is resting, slightly propped up in bed, in no apparent distress. She is on her BiPAP machine. On questioning her, denied any complaint. The nursing staff did not voice any concern. Unfortunately, her blood culture results are still pending. I offered to discharge her on oral antibiotic and informed her about the results tomorrow. Unfortunately, nobody is there to take her home today, and therefore, we will keep her overnight and I will discharge her tomorrow. Hopefully, by that time, we have the results of the culture and sensitivity. OBJECTIVE: GENERAL: When I examined her, she was pale, no jaundice, cyanosis or thyromegaly. No jugular venous distension. No lower limb edema. VITAL SIGNS: Her heart rate was 75, blood pressure was 152/69, temperature was 98.2, respiratory rate 20 and oxygen saturation was 97%. HEAD, EYES, EARS, NOSE AND THROAT: Showed normocephalic, atraumatic. NECK: Supple. HEART: Showed normal first and second sounds. No gallop or murmur. CHEST: Clear to auscultation. No crepitation or rhonchi. ABDOMEN: Distended, soft, nontender. NEUROLOGIC: She is awake, alert, responding appropriately. Cranial nerves are intact. She moves extremities without difficulty. She moves within her room. She does not go outside because of severe agoraphobia. Her intake is 1500, no output was recorded. LABORATORY DATA: Her lab work this morning showed a white cell count is 10,000, hemoglobin 12, hematocrit 36, MCV 90 and platelet count 184,000. Her chemistry showed a serum sodium 139, potassium 3.7, chloride 105, bicarbonate 21, anion gap of 13, BUN 14, creatinine 0.6. Estimated GFR was 100 mL per minute. Her glucose was high as the patient refusing to take her Lantus. PLAN: To continue with IV ceftriaxone. Continue to monitor blood sugar and adjust insulin as needed. I am hoping that we have the results of the cultures tomorrow and can discharge her home. ERICKA BLANCAS MD DR: ABBY/lito JOB#: [id number] / [id number]
== END 2017-12-08 17:50 | disposition home or self-care (01) | DRG 871 ==
LOC: ER 18:39 → 1 SOUTH 20:00
PROVIDERS: ADMIT Internal Medicine; ATTEND Internal Medicine
PROC: 5A09357 Assistance with Respiratory Ventilation, Less than 24 Consecutive Hours, Continuous Positive Airway Pressure (ICD-10-PCS; principal; 2017-12-04)
PROC: 5A09357 Assistance with Respiratory Ventilation, Less than 24 Consecutive Hours, Continuous Positive Airway Pressure (ICD-10-PCS; 2017-12-05)
PROC: 5A09357 Assistance with Respiratory Ventilation, Less than 24 Consecutive Hours, Continuous Positive Airway Pressure (ICD-10-PCS; 2017-12-08)
DX: A41.9 Sepsis, unspecified organism (principal); E43 Unspecified severe protein-calorie malnutrition; N39.0 Urinary tract infection, site not specified; E23.0 Hypopituitarism; E11.65 Type 2 diabetes mellitus with hyperglycemia; E66.01 Morbid (severe) obesity due to excess calories; G47.33 Obstructive sleep apnea (adult) (pediatric); G40.909 Epilepsy, unspecified, not intractable, without status epilepticus; F41.9 Anxiety disorder, unspecified; F32.9 Major depressive disorder, single episode, unspecified; E78.5 Hyperlipidemia, unspecified; G89.29 Other chronic pain; I10 Essential (primary) hypertension; I25.10 Atherosclerotic heart disease of native coronary artery without angina pectoris; B96.20 Unspecified Escherichia coli [E. coli] as the cause of diseases classified elsewhere; Z85.3 Personal history of malignant neoplasm of breast; Z98.51 Tubal ligation status; Z90.49 Acquired absence of other specified parts of digestive tract; Z90.710 Acquired absence of both cervix and uterus; Z90.12 Acquired absence of left breast and nipple; Z98.49 Cataract extraction status, unspecified eye; Z92.21 Personal history of antineoplastic chemotherapy; Z92.3 Personal history of irradiation; Z98.84 Bariatric surgery status; I25.2 Old myocardial infarction; Z85.42 Personal history of malignant neoplasm of other parts of uterus; Z88.2 Allergy status to sulfonamides; Z91.040 Latex allergy status; Z88.5 Allergy status to narcotic agent; Z91.048 Other nonmedicinal substance allergy status; Z82.49 Family history of ischemic heart disease and other diseases of the circulatory system; Z86.73 Personal history of transient ischemic attack (TIA), and cerebral infarction without residual deficits; Z68.37 Body mass index [BMI] 37.0-37.9, adult
CPT/HCPCS: 36415; 70450; 71045; 80048; 80053; 81001; 82947; 83036; 83605; 83690; 85025; 85027; 87040; 87086; 87186; 87205; 93005; 96361; 96374; J0696; J1815; J2405; J2765; 97116; 99285-25; J7030

== ENCOUNTER 2018-02-02 13:17 | Emergency (ER) | payer BC ==
[~2018-02-02 13:17] MED LIST: ALPR1TAB5 PO; ASPI325T8 PO; CEFU500T46 PO; FLUO40CA2 PO; IBUP400T18 PO; LISI-334 PO; NADO20TA PO; OMEG-91 PO; PHEN-443 PO; RANI150C PO
[2018-02-02 13:22] VITALS: BP 159/79
--- NOTE | 2018-02-02 14:00 | PHYS DOC ---
Past History Past Medical History: Diabetes, High Cholesterol, Hypertension, Stroke, UTI Past Surgical History: Appendectomy, Cholecystectomy, Hysterectomy Alcohol Use: None Drug Use: None Adult General Chief Complaint Chief Complaint: PAIN ON URINATION HPI HPI Patient is a 67-year-old female that presents to the emergency department complaining of pain on urination. Patient states that her symptoms began several days ago. Patient states that her pain is 10/10 in severity when it occurs. She says that she has a history of recurrent UTIs. She states that she was most recently seen in the hospital approximately one month ago. Review of Systems Review of Systems Constitutional: Endorses intermittent fever and chills [] Eyes: Denies change in visual acuity, redness, or eye pain [] HENT: Denies nasal congestion or sore throat [] Respiratory: Denies cough or shortness of breath [] Cardiovascular: Denies chest pain and palpitations[] GI: Endorses intermittent nausea. Denies abdominal pain vomiting, bloody stools or diarrhea [] : Endorses dysuria. Denies hematuria [] Musculoskeletal: Denies back pain or joint pain [] Integument: Denies rash or skin lesions [] Neurologic: Denies headache, focal weakness or sensory changes [] Complete systems were reviewed and found to be within normal limits, except as documented in this note. Allergies Allergies Allergies Coded Allergies Type Severity Reaction Last Updated Verified Sulfa (Sulfonamide Antibiotics) Allergy Intermediate 12/03/17 Yes codeine Allergy Intermediate 12/03/17 Yes adhesive Allergy Mild Rash 12/04/17 Yes latex Allergy Mild Rash 12/04/17 Yes acetaminophen Adverse Reaction Intermediate 12/03/17 Yes Physical Exam Physical Exam Constitutional: Well developed, well nourished, no acute distress, non-toxic appearance. [] HENT: Normocephalic, atraumatic, bilateral external ears normal, oropharynx moist, no oral exudates, nose normal. [] Eyes: PERRL, EOMI [] Neck: Normal range of motion, no tenderness, supple, no stridor. [] Cardiovascular:Heart rate regular rhythm, no murmur [] Lungs & Thorax: Bilateral breath sounds clear to auscultation [] Abdomen: Bowel sounds normal, soft, no tenderness, no masses, no pulsatile masses. [] Skin: Warm, dry, no erythema, no rash. [] Back: No tenderness, no CVA tenderness. [] Extremities: No tenderness, no cyanosis, no clubbing, ROM intact, no edema. [] Neurologic: Alert and oriented X 3, normal motor function, normal sensory function, no focal deficits noted. [] Current Patient Data Vital Signs Vital Signs Date Time Temp Pulse Resp B/P (MAP) Pulse Ox O2 Delivery O2 Flow Rate FiO2 02/02/18 13:22 97.9 70 18 98 Room Air EKG EKG [] Radiology/Procedures Radiology/Procedures [] Course & Med Decision Making Course & Med Decision Making Pertinent Labs and Imaging studies reviewed. (See chart for details) Patient is a 67-year-old female who presents to the emergency department complaining of pain on urination. UA was obtained. [] Dragon Disclaimer Dragon Disclaimer This electronic medical record was generated, in whole or in part, using a voice recognition dictation system. Departure Departure: Impression: Primary Impression: Urinary tract infection Disposition: HOME, SELF-CARE Condition: STABLE Referrals: PCP,NO (PCP) Patient Instructions: Urinary Tract Infection Scripts Phenazopyridine Hcl (PYRIDIUM) 200 Mg Tablet 200 MG PO TID for 2 Days, #6 Prov: RHEA PHILLIP DO 02/02/18 Ciprofloxacin Hcl (CIPRO) 500 Mg Tablet 1 TAB PO BID for UTI, #14 TAB Prov: RHEA PHILLIP DO 02/02/18 Problem Qualifiers Primary Impression: Urinary tract infection Urinary tract infection type: acute cystitis Hematuria presence: with hematuria Qualified Codes: N30.01 - Acute cystitis with hematuria RHEA PHILLIP DO Feb 02, 2018 14:00
[2018-02-02 14:16] LABS: BILIRUBIN,URINE NEG (NEG); CLARITY,URINE TURBID; COLOR,URINE YELLOW; GLUCOSE,URINE NEG (NEG); NITRITE,URINE NEG (NEG); UROBILINOGEN,URINE 0.2 mg/dL (0.2 mg/dL)
[2018-02-02 14:17] LABS: BACTERIA,URINE MOD /HPF (0-FEW); SQUAMOUS EPITHELIAL CELL,UR MOD /LPF; WBC,URINE >40 /HPF (0-4)
[2018-02-02] MEDS ORDERED: CIPROFLOXACIN HCL 500 MG TABLET ONE (14:28)
[2018-02-02] MEDS ORDERED: PHENAZOPYRIDINE 200 MG TABLET. PO ONE (14:30)
[2018-02-02] MEDS ORDERED: PHEN-318 PO (14:30)
[2018-02-02] MEDS ORDERED: CIPR500T94 PO (14:30)
[2018-02-02] MEDS ORDERED: CIPROFLOXACIN HCL 500 MG TABLET PO ONE (14:30)
== END 2018-02-02 14:37 | disposition home or self-care (01) ==
LOC: ER 13:17
DX: N30.01 Acute cystitis with hematuria (principal); E11.9 Type 2 diabetes mellitus without complications; E78.00 Pure hypercholesterolemia, unspecified; I10 Essential (primary) hypertension; Z87.440 Personal history of urinary (tract) infections; Z86.73 Personal history of transient ischemic attack (TIA), and cerebral infarction without residual deficits; Z90.49 Acquired absence of other specified parts of digestive tract; Z90.89 Acquired absence of other organs; Z90.710 Acquired absence of both cervix and uterus; Z88.2 Allergy status to sulfonamides; Z88.5 Allergy status to narcotic agent; Z88.8 Allergy status to other drugs, medicaments and biological substances; Z91.040 Latex allergy status; Z88.6 Allergy status to analgesic agent
CPT/HCPCS: 81001; 87086; 87186; 99284

== ENCOUNTER 2018-10-21 13:41 | Emergency (ER) | payer OTHER ==
[~2018-10-21 13:41] MED LIST changes: +CIPR500T94 PO; +PHEN-318 PO
--- NOTE | 2018-10-21 14:17 | PHYS DOC ---
Past History Past Medical History: Diabetes, High Cholesterol, Hypertension, Stroke, UTI Past Surgical History: Appendectomy, Cholecystectomy, Hysterectomy Alcohol Use: None Drug Use: None Adult General Chief Complaint Chief Complaint: FLANK PAIN [facility] HPI 68-year-old female presents with left side pain. She states that it starts in the ribs just below her breast and radiates around her back. She was diagnosed with shingles a couple months ago. She describes the pain as a sharp stabbing shooting pain that comes and goes randomly. She's had no additional trauma. The patient did just have a an umbilical hernia repair as an 2 weeks ago. She was given Chalmers that time. The patient is here today because she has not been tolerating the gabapentin. She has had difficulty getting in to her doctor and is tired of the pain. She was given a trial of fentanyl and the office setting but this did not help with the pain. She is not taking the gabapentin because it made her feel weird. She denies fever or chills. She denies recent trauma. She has no other complaints. She does not have a rash anymore. Review of Systems Review of Systems Constitutional: Denies fever or chills [] Eyes: Denies change in visual acuity, redness, or eye pain [] HENT: Denies nasal congestion or sore throat [] Respiratory: Denies cough or shortness of breath [] Cardiovascular: No additional information not addressed in HPI [] GI: Denies abdominal pain, nausea, vomiting, bloody stools or diarrhea [] : Denies dysuria or hematuria [] Musculoskeletal: Denies back pain or joint pain [] Integument: Denies rash or skin lesions [] Neurologic: Denies headache, focal weakness or sensory changes [] Endocrine: Denies polyuria or polydipsia [] All other systems were reviewed and found to be within normal limits, except as documented in this note. Allergies Allergies Allergies Coded Allergies Type Severity Reaction Last Updated Verified Sulfa (Sulfonamide Antibiotics) Allergy Intermediate 12/03/17 Yes codeine Allergy Intermediate 12/03/17 Yes adhesive Allergy Mild Rash 12/04/17 Yes latex Allergy Mild Rash 12/04/17 Yes acetaminophen Adverse Reaction Intermediate 12/03/17 Yes Physical Exam Physical Exam Constitutional: Well developed, well nourished, no acute distress, non-toxic appearance. [] HENT: Normocephalic, atraumatic, bilateral external ears normal, oropharynx moist, no oral exudates, nose normal. [] Eyes: PERRLA, EOMI, conjunctiva normal, no discharge. [] Neck: Normal range of motion, no tenderness, supple, no stridor. [] Cardiovascular:Heart rate regular rhythm, no murmur [] Lungs & Thorax: Bilateral breath sounds clear to auscultation. Tenderness over the left lower ribs with light touch [] Abdomen: Bowel sounds normal, soft, no tenderness, no masses, no pulsatile masses. [] Skin: Warm, dry, no erythema, no rash. [] Back: No tenderness, no CVA tenderness. [] Extremities: No tenderness, no cyanosis, no clubbing, ROM intact, no edema. [] Neurologic: Alert and oriented X 3, normal motor function, normal sensory function, no focal deficits noted. [] Psychologic: Affect normal, judgement normal, mood normal. [] Current Patient Data Vital Signs Vital Signs Date Time Temp Pulse Resp B/P (MAP) Pulse Ox O2 Delivery O2 Flow Rate FiO2 10/21/18 14:05 98.4 64 22 98 Room Air EKG EKG [] Radiology/Procedures Radiology/Procedures [] Course & Med Decision Making Course & Med Decision Making Pertinent Labs and Imaging studies reviewed. (See chart for details) Based on the history and physical exam, the patient appears be having postherpetic neuralgia. She did not tolerate the gabapentin very well and therefore is no longer taking it. I explained to her be best for her primary care physician to manage this and that she should try to repair that relationship. I will place her on Lyrica to see if this is more effective. She is stable for discharge at this time. [] Dragon Disclaimer Dragon Disclaimer This electronic medical record was generated, in whole or in part, using a voice recognition dictation system. Departure Departure: Impression: Primary Impression: Postherpetic neuralgia Disposition: 01 HOME, SELF-CARE Condition: STABLE Referrals: PCP,MIKE (PCP) Patient Instructions: Postherpetic Neuralgia Scripts Pregabalin (LYRICA) 75 Mg Capsule 1 CAP PO BID for postherpetic neuralgia, #60 CAP 0 Refills Prov: LUIS VARELA DO 10/21/18 LUIS VARELA DO Oct 21, 2018 14:17
[2018-10-21] MEDS ORDERED: PREG75CA PO (14:37)
[2018-10-21 14:50] VITALS: BP 140/60
== END 2018-10-21 14:45 | disposition home or self-care (01) ==
LOC: ER 13:41
DX: B02.29 Other postherpetic nervous system involvement (principal); R07.81 Pleurodynia; E11.9 Type 2 diabetes mellitus without complications; E78.00 Pure hypercholesterolemia, unspecified; I10 Essential (primary) hypertension; Z87.440 Personal history of urinary (tract) infections; Z86.73 Personal history of transient ischemic attack (TIA), and cerebral infarction without residual deficits; Z88.2 Allergy status to sulfonamides; Z88.5 Allergy status to narcotic agent; Z91.040 Latex allergy status; Z88.6 Allergy status to analgesic agent
CPT/HCPCS: 99283

== ENCOUNTER → 2020-06-16 | Outpatient (CLI) | payer OTHER, MEDICAID ==
[~2020-06-16] MED LIST changes: -NADO20TA PO; +NADO20TA2 PO; +PREG75CA PO
--- NOTE | 2020-06-16 11:55 | RAD ---
LEFT LEG VENOUS DOPPLER STUDY: Clinical indications: Left leg swelling and pain. Findings: Duplex sonography (including cassidy scale evaluation and color flow and waveform spectral meghan lysis) of the proximal aspect of the greater saphenous vein and the proximal aspect of the profunda f emoral vein and the entire length of the common femoral and superficial femoral and popliteal veins a nd the tibioperoneal trunk and the proximal aspect of the posterior tibial and peroneal veins of the left leg was performed. Normal compressibility, augmentation of color Doppler flow after calf marquis woody, and respiratory variation of Doppler flow is seen. Thus, there are no sonographic findings of d eep venous thrombosis within these veins. Impression: There are no sonographic findings of deep venous thrombosis within the veins discussed ab ove of the left lower extremity. Electronically signed by: Prince Candelario MD (06/16/2020 11:52 AM) [id number]
== END ==
LOC: US 10:22
PROVIDERS: ATTEND Family Medicine
DX: R22.42 Localized swelling, mass and lump, left lower limb (principal); M79.605 Pain in left leg
CPT/HCPCS: 93971

== ENCOUNTER 2020-10-25 10:50 | Emergency (ER) | payer OTHER, MEDICAID ==
[~2020-10-25] VITALS: Ht 160 cm; Wt 94.0 kg
[~2020-10-25 10:50] MED LIST changes: -LISI-334 PO; +LISI20TA18 PO; +OMEG-206 PO; -OMEG-91 PO
--- NOTE | 2020-10-25 11:56 | PHYS DOC ---
Past History Past Medical History: Cancer, Hypertension, GA, Other Additional Past Medical Histor: MVP, cervical and breast CA, shingles Past Surgical History: Appendectomy, Cancer Surgery, Cholecystectomy, Hysterectomy, Tubal ligation Alcohol Use: Occasionally Drug Use: None General Adult EDM: Chief Complaint: HIP PAIN HPI: HPI: 70-year-old female presents after fall at home. She fell 5 days ago. She continues to have right knee pain, right hip pain, and low back pain. The patient was walking in her house and did not have all the lights on. She slipped on something on the floor and fell onto her right knee and then onto her right hip. Lumbar spine started hurting more the next day. She presents today because she has been taking ibuprofen at home without relief and the pain does seem to be getting worse. She denies numbness, tingling, altered sensation. Review of Systems: Review of Systems: Constitutional: Denies fever or chills Eyes: Denies change in visual acuity HENT: Denies nasal congestion or sore throat Respiratory: Denies cough or shortness of breath Cardiovascular: Denies chest pain or edema GI: Denies abdominal pain, nausea, vomiting, bloody stools or diarrhea : Denies dysuria Musculoskeletal: Right hip pain, right knee pain, lumbar pain Integument: Denies rash Neurologic: Denies headache, focal weakness or sensory changes Endocrine: Denies polyuria or polydipsia Lymphatic: Denies swollen glands Psychiatric: Denies depression or anxiety Allergies: Allergies: Allergies Coded Allergies Type Severity Reaction Last Updated Verified Sulfa (Sulfonamide Antibiotics) Allergy Intermediate 12/03/17 Yes codeine Allergy Intermediate 12/03/17 Yes adhesive Allergy Mild Rash 12/04/17 Yes latex Allergy Mild Rash 12/04/17 Yes acetaminophen Adverse Reaction Intermediate 12/03/17 Yes Physical Exam: PE: Constitutional: Well developed, well nourished, morbidly obese, no acute distress, non-toxic appearance. [] HENT: Normocephalic, atraumatic, bilateral external ears normal, oropharynx moist, no oral exudates, nose normal. [] Eyes: PERRLA, EOMI, conjunctiva normal, no discharge. [] Neck: Normal range of motion, no tenderness, supple, no stridor. [] Cardiovascular:Heart rate regular rhythm, no murmur [] Lungs & Thorax: Bilateral breath sounds clear to auscultation [] Abdomen: Bowel sounds normal, soft, no tenderness, no masses, no pulsatile masses. [] Skin: Warm, dry, no erythema, no rash. [] Back: Tenderness of the lumbar paraspinal muscles [] Extremities: Tenderness along the joint line of the right knee. Tenderness over the greater trochanter of the right femur. [] Neurologic: Alert and oriented X 3, normal motor function, normal sensory func tion, no focal deficits noted. [] Psychologic: Affect normal, judgement normal, mood normal. [] Current Patient Data: Vital Signs: Vital Signs Date Time Temp Pulse Resp B/P (MAP) Pulse Ox O2 Delivery O2 Flow Rate FiO2 10/25/20 11:05 97.7 68 18 227/110 (149) 98 Room Air EKG: EKG: [] Radiology/Procedures: Radiology/Procedures: [] Impressions: XR KNEE 4 VIEWS WITH PATELLA_RT History: Reason: fall- pain / Spl. Instructions: / History: Technique: 4 views right knee Comparison: None. Findings: Normal alignment. No fracture. Moderate medial compartment DJD. No significant knee joint effusion. Mild additional new DJD. Vascular calcifications. Impression: 1. No acute osseous abnormality. 2. 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 Electronically signed by: Rina Walters DO (10/25/2020 12:08 PM) [id number] DICTATED AND SIGNED BY: RINA WALTERS DO DATE: 10/25/20 1206 CC: LUIS VARELA DO; MARSHAL CEE MD ~MTH0 0 XR SACRUM AND COCCYX 2+VIEWS, XR PELVIS 1-2V History: Reason: fall- pain / Spl. Instructions: / History: Technique: 3 views of the sacrum and coccyx. AP view the pelvis. Comparison: None. Findings: Normal AP alignment of the hips. No fracture. Mild pubic symphysis DJD. Lower lumbar spondylosis. Normal alignment of the sacrum and coccyx. No definite fracture although distal aspect of the coccyx is degraded. Mild bilateral sacroiliac DJD. Impression: 1. No acute osseous abnormality. 2. Mild bilateral sacroiliac DJD. 3. Lower lumbar spondylosis. Electronically signed by: Rina Walters DO (10/25/2020 12:11 PM) [id number] DICTATED AND SIGNED BY: RINA WALTERS DO DATE: 10/25/20 1208 CC: LUIS VARELA DO; MARSHAL CEE MD ~MTH0 0 Heart Score: C/O Chest Pain: N/A Risk Factors: Risk Factors: DM, Current or recent (<one month) smoker, HTN, HLP, family history of CAD, obesity. Risk Scores: Score 0 - 3: 2.5% MACE over next 6 weeks - Discharge Home Score 4 - 6: 20.3% MACE over next 6 weeks - Admit for Clinical Observation Score 7 - 10: 72.7% MACE over next 6 weeks - Early Invasive Strategies Course & Med Decision Making: Course & Med Decision Making Pertinent Labs and Imaging studies reviewed. (See chart for details) The patient's x-rays are negative for fracture. She does have chronic degenerative changes. See official radiology reads for more details. I checked the narcotic database and the patient does not have any recent narcotic history. I will give her a prescription for Vicuprofen 5/325 for her discomfort and advised that she follow-up with her primary care physician. She is stable for discharge at this time. [] Dragon Disclaimer: Dragon Disclaimer: This electronic medical record was generated, in whole or in part, using a voice recognition dictation system. Departure Departure: Impression: Primary Impression: Knee pain, right Qualified Codes: M25.561 - Pain in right knee Additional Impressions: Hip pain, right Lumbar pain Disposition: HOME / SELF CARE / HOMELESS Condition: STABLE Referrals: MARSHAL CEE MD (PCP) Patient Instructions: Low Back Strain with [facility]hab[facility] Scripts Hydrocodone/Ibuprofen (HYDROCODONE-IBUPROFEN 7.5-200 ) 1 Each Tablet 1 TAB PO PRN Q6HRS PRN for PAIN, #14 TAB 0 Refills Prov: LUIS VARELA DO 10/25/20 LUIS VARELA DO October 25, 2020 11:56
--- NOTE | 2020-10-25 12:11 | RAD ---
XR KNEE 4 VIEWS WITH PATELLA_RT History: Reason: fall- pain / Spl. Instructions: / History: Technique: 4 views right knee Comparison: None. Findings: Normal alignment. No fracture. Moderate medial compartment DJD. No significant knee joint effusion. M ild additional new DJD. Vascular calcifications. Impression: 1. No acute osseous abnormality. 2. 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 Electronically signed by: Live Tilley DO (10/25/2020 12:08 PM) [id number]
--- NOTE | 2020-10-25 12:13 | RAD ---
XR SACRUM AND COCCYX 2+VIEWS, XR PELVIS 1-2V History: Reason: fall- pain / Spl. Instructions: / History: Technique: 3 views of the sacrum and coccyx. AP view the pelvis. Comparison: None. Findings: Normal AP alignment of the hips. No fracture. Mild pubic symphysis DJD. Lower lumbar spondylosis. Normal alignment of the sacrum and coccyx. No definite fracture although distal aspect of the coccyx is degraded. Mild bilateral sacroiliac DJD. Impression: 1. No acute osseous abnormality. 2. Mild bilateral sacroiliac DJD. 3. Lower lumbar spondylosis. Electronically signed by: Live Tilley DO (10/25/2020 12:11 PM) [id number]
[2020-10-25] MEDS ORDERED: HYDR-1179 PO (12:35)
[2020-10-25 12:45] VITALS: BP 187/144
== END 2020-10-25 12:55 | disposition home or self-care (01) ==
LOC: ER 11:05
DX: M25.561 Pain in right knee (principal); M25.551 Pain in right hip; M54.5 Low back pain; E66.01 Morbid (severe) obesity due to excess calories; I10 Essential (primary) hypertension; I25.2 Old myocardial infarction; Z68.36 Body mass index [BMI] 36.0-36.9, adult; Z88.2 Allergy status to sulfonamides; Z88.5 Allergy status to narcotic agent; Z91.040 Latex allergy status; Z88.8 Allergy status to other drugs, medicaments and biological substances; W01.0XXA Fall on same level from slipping, tripping and stumbling without subsequent striking against object, initial encounter; Y93.01 Activity, walking, marching and hiking; Y92.098 Other place in other non-institutional residence as the place of occurrence of the external cause; Y99.8 Other external cause status
CPT/HCPCS: 72170; 72220; 73564; 99285

== ENCOUNTER → 2020-11-10 | Emergency (ER) | payer OTHER, MEDICAID ==
[~2020-11-10] VITALS: Ht 160 cm; Wt 94.0 kg
[~2020-11-10] MED LIST changes: +BACITRACIN ZINC TOPICAL OINT PACKET. TP ONE; +DIPH,PERTUSS(ACELL),TET VAC/PF 0.5 ML SYRINGE. VAX IM ONE; +HYDR-1179 PO; +IV NORMAL SALINE 1,000ML 1,000 ML IV ONE; +MECL-75 PO; +cloNIDine HCL 0.1 MG TABLET PO ONE
[2020-11-10 15:23] VITALS: BP 156/114
--- NOTE | 2020-11-10 16:13 | RAD ---
Chest radiograph 11/10/2020 3:45 PM INDICATION: Near syncope, dizzy COMPARISON: 12/03/2017 TECHNIQUE: Frontal and lateral views of the chest are provided. FINDINGS: The cardiomediastinal silhouette is within normal limits. There are no pleural effusions. There is no pulmonary vascular congestion. There is no pneumothorax. The lungs are clear. No significant osseous abnormality is identified. IMPRESSION: No acute cardiopulmonary process. Electronically signed by: Meera Agarwal MD (11/10/2020 4:11 PM) [id number]
--- NOTE | 2020-11-10 16:14 | RAD ---
XR KNEE 4 VIEWS WITH PATELLA_RT 11/10/2020 3:45 PM INDICATION: Right knee injury after fall COMPARISON: None available. TECHNIQUE: 4 views the right knee are provided. FINDINGS/ IMPRESSION: There is no acute fracture or dislocation. Mild medial femorotibial osteoarthrosis with joint space n arrowing, marginal osteophytosis and subchondral sclerosis. Patella is intact. Mild patellofemoral os teoarthrosis. There is superior patellar enthesopathy. No significant joint effusion. Bone mineraliza tion is within normal limits. Regional soft tissues are within normal limits. There is no soft tissue gas or osseous erosion. No radiopaque foreign body. Electronically signed by: Meera Agarwal MD (11/10/2020 4:11 PM) [id number]
--- NOTE | 2020-11-10 16:16 | RAD ---
EXAMINATION: CT HEAD/BRAIN WO (CT HEAD WITHOUT IV CONTRAST) CLINICAL HISTORY: Near syncope with fall TECHNIQUE: Serial axial images without IV contrast were obtained from the vertex to the foramen magnu m. CT Dose Reduction Employed: One or more of the following individualized dose reduction techniques wer e utilized for this examination: 1. Automated exposure control 2. Adjustment of the mA and/or kV ac cording to patient size 3. Use of iterative reconstruction technique. COMPARISON: None FINDINGS: Acute Change: No evidence of an acute infarct or other acute parenchymal process. Hemorrhage: No evidence of acute intracranial hemorrhage. Mass Lesion/Mass Effect: No evidence of intracranial mass or extraaxial fluid collection. No signific ant mass effect. Chronic Change: Atherosclerotic calcification of the anterior and posterior circulation. Parenchyma: No significant volume loss. Parenchyma otherwise within normal limits for age. Ventricles: Ventricles within normal limits for age. Paranasal Sinuses and Skull Base: Near complete opacification of the left sphenoid sinus. Visualized skull base and soft tissues unremarkable. IMPRESSION: No evidence of acute intracranial abnormality. Left sphenoid sinus disease, likely chronic. Electronically signed by: Rohit Mckeon DO (11/10/2020 4:13 PM) ERIC
--- NOTE | 2020-11-10 16:48 | EKG ---
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
[2020-11-10 16:53] LABS: BASO # 0.1 x10^3/uL (0.0-0.2); BASO % 1 % (0-3); EOS # 0.2 x10^3/uL (0.0-0.7); EOS % 3 % (0-3); HEMATOCRIT 43.2 % (36.0-47.0); HEMOGLOBIN 14.4 g/dL (12.0-15.5); LYMPH # 2.8 x10^3/uL (1.0-4.8); LYMPH % 38 % (24-48); MEAN CORPUSCULAR HEMOGLOBIN 31 pg (25-35); MEAN CORPUSCULAR HGB CONC 33 g/dL (31-37); MEAN CORPUSCULAR VOLUME 92 fL (79-100); MONO # 0.6 x10^3/uL (0.0-1.1); MONO % 8 % (0-9); NEUT # 3.8 x10^3uL (1.8-7.7); NEUT % 51 % (31-73); PLATELET COUNT 256 x10^3/uL (140-400); RED BLOOD COUNT 4.68 x10^6/uL (3.50-5.40); RED CELL DISTRIBUTION WIDTH 13.2 % (11.5-14.5); WHITE BLOOD COUNT 7.5 x10^3/uL (4.0-11.0)
[2020-11-10 16:54] LABS: CALCIUM 9.4 mg/dL (8.5-10.1); CREATININE 1.1 mg/dL (0.6-1.0); GFR 49.2; POTASSIUM 4.2 mmol/L (3.5-5.1)
[2020-11-10 17:10] LABS: ALBUMIN 3.4 g/dL (3.4-5.0); ALBUMIN/GLOBULIN RATIO 0.9 (1.0-1.7); PHOSPHORUS 3.1 mg/dL (2.6-4.7); TOTAL BILIRUBIN 0.3 mg/dL (0.2-1.0); TOTAL PROTEIN 7.3 g/dL (6.4-8.2)
--- NOTE | 2020-11-10 17:50 | PHYS DOC ---
Past History Past Medical History: Cancer, Diabetes, Hypertension, NM, Stroke, Other Additional Past Medical Histor: MVP, cervical and breast CA, shingles Past Surgical History: Appendectomy, Cancer Surgery, Cholecystectomy, Hysterectomy, Tubal ligation Alcohol Use: Occasionally Drug Use: None Adult General Chief Complaint Chief Complaint: MECHANICAL FALL HPI HPI Patient is a 70-year-old female presents to the emergency department stating while she was out eating lunch she felt a little unsteady when she would move around. Patient states she went to the bathroom and had a near syncopal episode in which she became very dizzy, complained the room was spinning, stated that she somehow started leaning to the right and hit her right elbow on the sink and her right knee on the floor. Patient denies hitting her head or neck. Patient denies loss of consciousness. Patient states she called out for her daughter who came to the bathroom to help her up, she 911 was called and she was brought to the emergency department by EMS transport. Patient denies headache, chest p ain, shortness of breath, nasal or chest congestion. Patient denies any recent fever or chills. Patient states that when she turns her head to the right the room starts spinning and she feels very off balance. Patient states this has been going on for several months however she has not told her primary care physician Dr. Cee about the symptoms. Patient reports right knee pain with an abrasion to her right knee. States that her elbow does not hurt even though she did strike it against the sink in the bathroom. Patient reports an allergy to sulfa, Tylenol with codeine, adhesive, and latex. Patient reports a gastric sleeve surgery in 2010, states that she has agoraphobia and is supposed to take Xanax when she is out in public however her primary care physician will no longer prescribe her Xanax. Patient reports that when she does not take Xanax and she is out in public that her blood pressure increases however she says that when she is at home that her blood pressure decreases and normalizes. Patient states that she does take hydrochlorothiazide and lisinopril for blood pressure daily, takes 300 mg of CBD for anxiety, takes Humalog insulin for type 2 diabetes. Patient reports her last tetanus immunization was 7 years ago. Review of Systems Review of Systems Constitutional: Denies fever or chills [] Eyes: Denies change in visual acuity, redness, or eye pain [] HENT: Denies nasal congestion or sore throat [] Respiratory: Denies cough or shortness of breath [] Cardiovascular: No additional information not addressed in HPI [] GI: Denies abdominal pain, nausea, vomiting, bloody stools or diarrhea [] : Denies dysuria or hematuria [] Musculoskeletal: Denies back pain or joint pain [] Integument: Denies rash or skin lesions [] Neurologic: Denies headache, focal weakness or sensory changes [] Endocrine: Denies polyuria or polydipsia [] All other systems were reviewed and found to be within normal limits, except as documented in this note. Current Medications Current Medications Current Medications Medications (Trade) Dose Ordered Sig/Reshma Start Time Stop Time Status Last Admin Dose Admin Diphtheria/ Pertussis/Tetanus Vacc (ADACEL TDap SYRINGE) 0.5 ml ONCE ONCE 11/10/20 16:15 11/10/20 16:16 DC 11/10/20 17:26 0.5 ML Sodium Chloride 1,000 ml @ 1,000 mls/hr 1X ONCE 11/10/20 16:00 11/10/20 16:59 DC 11/10/20 16:38 1,000 MLS/HR Allergies Allergies Allergies Coded Allergies Type Severity Reaction Last Updated Verified Sulfa (Sulfonamide Antibiotics) Allergy Intermediate 12/03/17 Yes codeine Allergy Intermediate 12/03/17 Yes adhesive Allergy Mild Rash 12/04/17 Yes latex Allergy Mild Rash 12/04/17 Yes acetaminophen Adverse Reaction Intermediate 12/03/17 Yes Physical Exam Physical Exam Constitutional: Well developed, well nourished, no acute distress, non-toxic appearance. 70-year-old female in no apparent distress. HENT: Normocephalic, atraumatic, bilateral external ears normal, oropharynx moist, no oral exudates, nose normal. No drooling, trismus, no depressions or contusions to the skull/scalp/face. No palumbo sign, no raccoon eyes, bilateral TMs intact, no drainage from bilateral external auditory canals. Eyes: PERRLA, EOMI, conjunctiva normal, no discharge. That especially 6 cardinal eye movements. Neck: Normal range of motion, no tenderness, supple, no stridor. No meningismus signs, no nuchal rigidity appreciated. Cardiovascular:Heart rate regular rhythm, no murmur heart sounds S1-S2 to auscultation. Lungs & Thorax: Bilateral breath sounds clear to auscultation no adventitious lung sounds appreciated. Abdomen: Bowel sounds normal, soft, no tenderness, no masses, no pulsatile masses. Skin: Warm, dry, no erythema, no rash. Except for right knee has minor abrasion over kneecap. Back: No tenderness, no CVA tenderness. Extremities: No tenderness, no cyanosis, no clubbing, ROM intact, no edema. Except for right lower extremity, pain to palpation at right kneecap area, no bruising appreciated, no deformity appreciated, no crepitus appreciated, distal cap refill less than 2 seconds, full passive range of motion satisfactory. 2+ posterior tibial/dorsalis pedis pulses. Neurologic: Alert and oriented X 3, normal motor function, normal sensory function, no focal deficits noted. Patient positive López-Hallpike maneuver. Psychologic: Affect normal, judgement normal, mood normal. Current Patient Data Vital Signs Vital Signs Date Time Temp Pulse Resp B/P (MAP) Pulse Ox O2 Delivery O2 Flow Rate FiO2 11/10/20 15:23 98.4 66 16 156/114 (128) 98 Room Air Lab Results Laboratory Tests Test 11/10/20 16:31 White Blood Count 7.5 x10^3/uL (4.0-11.0) Red Blood Count 4.68 x10^6/uL (3.50-5.40) Hemoglobin 14.4 g/dL (12.0-15.5) Hematocrit 43.2 % (36.0-47.0) Mean Corpuscular Volume 92 fL (79-100) Mean Corpuscular Hemoglobin 31 pg (25-35) Mean Corpuscular Hemoglobin Concent 33 g/dL (31-37) Red Cell Distribution Width 13.2 % (11.5-14.5) Platelet Count 256 x10^3/uL (140-400) Neutrophils (%) (Auto) 51 % (31-73) Lymphocytes (%) (Auto) 38 % (24-48) Monocytes (%) (Auto) 8 % (0-9) Eosinophils (%) (Auto) 3 % (0-3) Basophils (%) (Auto) 1 % (0-3) Neutrophils # (Auto) 3.8 x10^3uL (1.8-7.7) Lymphocytes # (Auto) 2.8 x10^3/uL (1.0-4.8) Monocytes # (Auto) 0.6 x10^3/uL (0.0-1.1) Eosinophils # (Auto) 0.2 x10^3/uL (0.0-0.7) Basophils # (Auto) 0.1 x10^3/uL (0.0-0.2) Sodium Level 140 mmol/L (136-145) Potassium Level 4.2 mmol/L (3.5-5.1) Chloride Level 103 mmol/L (98-107) Carbon Dioxide Level 26 mmol/L (21-32) Anion Gap 11 (6-14) Blood Urea Nitrogen 28 mg/dL (7-20) H Creatinine 1.1 mg/dL (0.6-1.0) H Estimated GFR (Cockcroft-Gault) 49.2 BUN/Creatinine Ratio 25 (6-20) H Glucose Level 329 mg/dL (70-99) H Calcium Level 9.4 mg/dL (8.5-10.1) Phosphorus Level 3.1 mg/dL (2.6-4.7) Magnesium Level 2.0 mg/dL (1.8-2.4) Total Bilirubin 0.3 mg/dL (0.2-1.0) Aspartate Amino Transferase (AST) 16 U/L (15-37) Alanine Aminotransferase (ALT) 27 U/L (14-59) Alkaline Phosphatase 62 U/L (46-116) Creatine Kinase 76 U/L (26-192) Creatine Kinase MB (Mass) 0.7 ng/mL (0.0-3.6) Creatine Kinase MB Relative Index 0.9 % (0-4) Troponin I Quantitative < 0.017 ng/mL (0-0.055) Total Protein 7.3 g/dL (6.4-8.2) Albumin 3.4 g/dL (3.4-5.0) Albumin/Globulin Ratio 0.9 (1.0-1.7) L EKG EKG EKG performed at 1609 by house respiratory therapy staff shows a normal sinus rhythm with an occasional PAC, VA interval 0.208, QTc interval 0.406, no acute STEMI, no ACS, no acute ischemia appreciated, EKG interpreted by ED attending physician Dr. Kohli. Radiology/Procedures Radiology/Procedures PATIENT: FRANK GOTTI ACCOUNT: [id number] : 1950 LOCATION: ER AGE: 70 SEX: F EXAM STATUS: PRE ER ORD. PHYSICIAN: RHEA CHANG APRN REASON: RIGHT KNEE INJURY AFTER FALL PROCEDURE: KNEE RIGHT 4V XR KNEE 4 VIEWS WITH PATELLA_RT 11/10/2020 3:45 PM INDICATION: Right knee injury after fall COMPARISON: None available. TECHNIQUE: 4 views the right knee are provided. FINDINGS/ IMPRESSION: There is no acute fracture or dislocation. Mild medial femorotibial osteoarthrosis with joint space narrowing, marginal osteophytosis and subchondral sclerosis. Patella is intact. Mild patellofemoral osteoarthrosis. There is superior patellar enthesopathy. No significant joint effusion. Bone mineralization is within normal limits. Regional soft tissues are within normal limits. There is no soft tissue gas or osseous erosion. No radiopaque foreign body. Electronically signed by: Evan Mckeon MD (11/10/2020 4:11 PM) [id number] DICTATED AND SIGNED BY: EVAN MCKEON MD DATE: 11/10/201610 CC: RHEA CHANG APRN; MARSHAL CEE MD ~MTH0 0 PATIENT: FRANK GOTTI ACCOUNT: [id number] : 1950 LOCATION: ER AGE: 70 SEX: F EXAM STATUS: PRE ER ORD. PHYSICIAN: RHEA CHANG APRN REASON: NEAR SYNCOPE, DIZZY PROCEDURE: CHEST PA & LATERAL Chest radiograph 11/10/2020 3:45 PM INDICATION: Near syncope, dizzy COMPARISON: 12/03/2017 TECHNIQUE: Frontal and lateral views of the chest are provided. FINDINGS: The cardiomediastinal silhouette is within normal limits. There are no pleural effusions. There is no pulmonary vascular congestion. There is no pneumothorax. The lungs are clear. No significant osseous abnormality is identified. IMPRESSION: No acute cardiopulmonary process. Electronically signed by: Evan Mckeon MD (11/10/2020 4:11 PM) [id number] DICTATED AND SIGNED BY: EVAN MCKEON MD DATE: 11/10/20 1610 CC: RHEA CHANG APRN; MARSHAL CEE MD ~MTH0 0 PATIENT: FRANK GOTTI ACCOUNT: [id number] : 1950 LOCATION: ER AGE: 70 SEX: F EXAM STATUS: PRE ER ORD. PHYSICIAN: RHEA CHANG APRN REASON: NEAR SYNCOPE WITH FALL PROCEDURE: CT HEAD WO CONTRAST EXAMINATION: CT HEAD/BRAIN WO (CT HEAD WITHOUT IV CONTRAST) CLINICAL HISTORY: Near syncope with fall TECHNIQUE: Serial axial images without IV contrast were obtained from the vertex to the foramen magnum. CT Dose Reduction Employed: One or more of the following individualized dose reduction techniques were utilized for this examination: 1. Automated exposure control 2. Adjustment of the mA and/or kV according to patient size 3. Use of iterative reconstruction technique. COMPARISON: None FINDINGS: Acute Change: No evidence of an acute infarct or other acute parenchymal process. Hemorrhage: No evidence of acute intracranial hemorrhage. Mass Lesion/Mass Effect: No evidence of intracranial mass or extraaxial fluid collection. No significant mass effect. Chronic Change: Atherosclerotic calcification of the anterior and posterior circulation. Parenchyma: No significant volume loss. Parenchyma otherwise within normal limits for age. Ventricles: Ventricles within normal limits for age. Paranasal Sinuses and Skull Base: Near complete opacification of the left sph enoid sinus. Visualized skull base and soft tissues unremarkable. IMPRESSION: No evidence of acute intracranial abnormality. Left sphenoid sinus disease, likely chronic. Electronically signed by: Rohit Armstrong DO (11/10/2020 4:13 PM) [facility] DICTATED AND SIGNED BY: ROHIT ARMSTRONG DO DATE: 11/10/20 1609 CC: RHEA CHANG APRN; MARSHAL CEE MD ~MTH0 0 Heart Score C/O Chest Pain: No Risk Factors: Risk Factors: DM, Current or recent (<one month) smoker, HTN, HLP, family history of CAD, obesity. Risk Scores: Risk Factors: DM, Current or recent (<one month) smoker, HTN, HLP, family history of CAD, obesity. Course & Med Decision Making Course & Med Decision Making Pertinent Labs and Imaging studies reviewed. (See chart for details) 70-year-old female, vital signs reviewed, presents emergency department concerning near syncopal episode with dizziness. Physical examination consistent with vertigo however related to patient's near syncopal episode will order cardiopulmonary work-up with CT head. Patient will be given p.o. meclizine for positive López-Hallpike, bacitracin with abrasion care to right knee. 1 L normal saline. Will bring tetanus immunization up-to-date with DTaP Adacel. Patient's lab work unremarkable, CT head and chest x-ray unremarkable. Upon reexamination of the patient, the patient states she feels much better. The patient refused bacitracin and Band-Aid to right knee stating that she can put her own bacitracin on at home and put her own Band-Aid on. Patient was not orthostatic. Patient no longer has feelings of dizziness. Discussed with patient treating elevated blood pressure with p.o. clonidine. Patient refused this stating that all she needs is Xanax and her pressure would go down. Patient states that she will sign AMA form and go home. Patient states she will return if her blood pressure remains high at home. Patient gave verbal understanding of discharge home instructions, patient gave verbal understanding staying for further treatment versus leaving AGAINST MEDICAL ADVICE and signed AMA form, patient gave verbal understanding of follow-up with primary care, return ER precautions and concerns, patient was discharged home without incident. Dragon Disclaimer Dragon Disclaimer This electronic medical record was generated, in whole or in part, using a voice recognition dictation system. Departure Departure: Impression: Primary Impression: Vertigo Additional Impressions: Near syncope Left against medical advice Need for DTaP vaccination Disposition: HOME / SELF CARE / HOMELESS Condition: GOOD Referrals: MARSHAL CEE MD (PCP) Patient Instructions: Vertigo Additional Instructions: You are seen today in the emergency department for dizziness and a near passing out spell. Your heart lungs and brain were evaluated with labs x-rays and CT. There were no concerning findings that would require immediate intervention by a hospital specialist or for you to be hospitalized today. You indicated that your dizziness was resolved with the medication that I gave you called me jesseniaizine. I am prescribing you some to take home. Your blood pressure was high in the emergency department, I recommended some blood pressure medicines and reevaluation of your blood pressure however you refused this saying that you have white coat syndrome and that your blood pressure will normalize when you leave the hospital. Please follow-up with Dr. Cee tomorrow and let him know that I put you on the medication meclizine. Please return to the emergency department for worsening symptoms or other concerns. EMERGENCY DEPARTMENT GENERAL DISCHARGE INSTRUCTIONS Thank you for coming to [facility] (ED) today and trusting us with you care. We trust that you had a positivie experience in our Emergency Department. If you wish to speak to the department management, you may call the director at [phone]. YOUR FOLLOW UP INSTRUCTIONS ARE FOLLOWS: 1. Do you have a private Doctor? If you do not have a private doctor, please ask for a resource list of physicians or clinics that may be able to assist you with follow up care. 2. The Emergency Physician has interpreted your x-rays. The X-Ray specialist will also review them. If there is a change in the findings, you will be notified in 48 hours when at all possible. 3. A lab test or culture has been done, your results will be reviewed and you will be notified if you need a change in treatment. ADDITIONAL INSTRUCTIONS AND INFORMATION: 1. Your care today has been supervised by a physician who is specially trained in emergency care. Many problems require more than one evaluation for a complete diagnosis and treatment. We recommend that you schedule your follow up appointment as recommended to ensure complete treatment of you illness or injury. If you are unable to obtain follow up care and continue to have a problem, or if your condition worsens, we recommend that you return to the ED. 2. We are not able to safely determine your condition over the phone nor are we able to give sound medical advice over the phone. For these safety reasons, if you call for medical advice we will ask you to come to the ED for further evaluation. 3. If you have any questions regarding these discharge instructions please call the ED at [phone]. SAFETY INFORMATION: In the interest of safety, wellness, and injury prevention; we encourage you to wear your sealbelt, if you smoke; quite smoking, and we encourage family to use a protective helmet for bicycling and other sporting events that present an increased risk for head injury. IF YOUR SYMPTOMS WORSEN OR NEW SYMPTOMS DEVELOP, OR YOU HAVE CONCERNS ABOUT YOUR CONDITION; OR IF YOUR CONDITION WORSENS WHILE YOU ARE WAITING FOR YOUR FOLLOW UP APPOINTMENT; EITHER CONTACT YOUR PRIMARY CARE DOCTOR, THE PHYSICIAN WHOSE NAME AND NUMBER YOU WERE GIVEN, OR RETURN TO THE ED IMMEDIATELY. Patient does not wish to proceed with medical care recommended by YUNG Chang, LEONARDO-C. Patient given information related to possible complications, up to and including , which could occur as a result of leaving the hospital at this time. Patient verbalizes understanding of risks involved due to leaving against medical advice. Patient has signed AMA form. Scripts Meclizine Hcl (MECLIZINE HCL) 25 Mg Tablet 1 TAB PO PRN TID for DIZZYNESS, #30 TAB 0 Refills Prov: RHEA CHANG APRN 11/10/20 Problem Qualifiers RHEA CHANG APRN November 10, 2020 17:50
== END | disposition home or self-care (01) ==
LOC: ER 15:18
DX: R55 Syncope and collapse (principal); R42 Dizziness and giddiness; E11.9 Type 2 diabetes mellitus without complications; I10 Essential (primary) hypertension; Z90.49 Acquired absence of other specified parts of digestive tract; Z90.710 Acquired absence of both cervix and uterus; Z23 Encounter for immunization; Z88.6 Allergy status to analgesic agent; Z91.040 Latex allergy status; Z98.51 Tubal ligation status
CPT/HCPCS: 36415; 70450; 71046; 73564; 80053; 82553; 83735; 84100; 84484; 85025; 90471; 90715; 93005; 96360; 99285; J7030

== ENCOUNTER → 2021-01-26 | Outpatient (CLI) | payer OTHER, MEDICAID ==
[2020-11-10 15:23] VITALS: BP 156/114
[~2021-01-26] MED LIST changes: -ALPR1TAB5 PO; +ALPR1TAB9 PO; -BACITRACIN ZINC TOPICAL OINT PACKET. TP ONE; -DIPH,PERTUSS(ACELL),TET VAC/PF 0.5 ML SYRINGE. VAX IM ONE; -IV NORMAL SALINE 1,000ML 1,000 ML IV ONE; -cloNIDine HCL 0.1 MG TABLET PO ONE
--- NOTE | 2021-01-26 15:47 | RAD ---
EXAM: Left ribs, 3 views. HISTORY: Pain. Falls. COMPARISON: 11/10/2020. FINDINGS: 3 views of the left ribs are obtained. No displaced fracture is seen. There is left acromia l clavicular joint osteoarthritis. There are metallic clips overlying the left breast. There is a bon e island within the left humeral head. IMPRESSION: No acute osseous finding. Electronically signed by: Lynette Hughes MD (01/26/2021 3:44 PM) [id number]
== END ==
LOC: RAD 15:24
PROVIDERS: ATTEND Nurse Practitioner Adult Health
DX: R07.81 Pleurodynia (principal); M19.012 Primary osteoarthritis, left shoulder
CPT/HCPCS: 71100

== ENCOUNTER 2021-02-26 09:41 | Emergency (ER) | payer OTHER, MEDICAID ==
[~2021-02-26] VITALS: Ht 160 cm; Wt 94.0 kg
[2021-02-26 09:41] VITALS: BP 177/74
[2021-02-26] MEDS ORDERED: NYST15PO9 TP (10:33)
--- NOTE | 2021-02-26 10:35 | PHYS DOC ---
Past History Past Medical History: Cancer, Diabetes, Hypertension, SC, Stroke, Other Additional Past Medical Histor: MVP, cervical and breast CA, shingles (RHEA CHANG APRN) Past Surgical History: Appendectomy, Cancer Surgery, Cholecystectomy, Hysterectomy, Tubal ligation (RHEA CHANG APRN) Alcohol Use: Occasionally Drug Use: None (RHEA CHANG APRN) Adult General Chief Complaint Chief Complaint: SKIN RASH/ABSCESS HPI HPI Patient is a 70-year-old female complains of a yeast infection to her lower abdomen that started approximately a month ago. Patient reports seeing her primary care physician Dr. Sutton and was started on nystatin powder, patient reports this seemed to help however noticed in the past 10 days it has returned. Patient reports she only had one application of nystatin powder left and is now out. Patient is requesting additional nystatin powder medications. Patient reports her skin rash is identical to her previous yeast infection. Denies any other physical complaints or physical concerns. (RHEA CHANG APRN) Review of Systems Review of Systems 14 body systems of review of systems have been reviewed. See HPI for pertinent positives and negative responses, otherwise all other systems are negative, nonpertinent or noncontributory. Constitutional: Negative except as outlined in HPI above. Skin: Negative except as outlined in HPI above. Eyes: Negative except as outlined in HPI above. HENT: Negative except as outlined in HPI above. Respiratory: Negative except as outlined in HPI above. Cardiovascular: Negative except as outlined in HPI above. GI: Negative except as outlined in HPI above. : Negative except as outlined in HPI above. Musculoskeletal: Negative except as outlined in HPI above. Integument: Negative except as outlined in HPI above. Neurologic: Negative except as outlined in HPI above. Endocrine: Negative except as outlined in HPI above. Lymphatic: Negative except as outlined in HPI above. Psychiatric: Negative except as outlined in HPI above. (RHEA CHANG APRN) Allergies Allergies Allergies Coded Allergies Type Severity Reaction Last Updated Verified Sulfa (Sulfonamide Antibiotics) Allergy Intermediate 12/03/17 Yes codeine Allergy Intermediate 12/03/17 Yes adhesive Allergy Mild Rash 12/04/17 Yes latex Allergy Mild Rash 12/04/17 Yes acetaminophen Adverse Reaction Intermediate 12/03/17 Yes (RHEA CHANG APRN) Physical Exam Physical Exam Constitutional: Well developed, well nourished, no acute distress, non-toxic appearance. 70-year-old female in no apparent distress. HENT: Normocephalic, atraumatic. Eyes: Conjunctiva normal, no discharge. Neck: Normal range of motion, no stridor. Cardiovascular: No cyanosis appreciated, distal cap refill less than 2 seconds. Lungs & Thorax: Patient is in no respiratory distress, no audible adventitious lung sounds appreciated. Abdomen: Nontender, no abnormalities noted. Skin: Warm, dry, no erythema, no rash. Except for lower abdomen along skin fold, beefy red moist skin surface without open lesions or drainage. Back: No tenderness, no deformities. Extremities: No tenderness, no cyanosis, no clubbing, ROM intact, no edema. Neurologic: Alert and oriented X 3, normal motor function, normal sensory function, no focal deficits noted. Psychologic: Affect normal, judgement normal, mood normal. (RHEA CHANG APRN) Current Patient Data Vital Signs Vital Signs Date Time Temp Pulse Resp B/P (MAP) Pulse Ox O2 Delivery O2 Flow Rate FiO2 02/26/21 09:41 97.9 90 18 177/74 98 Room Air (RHEA CHANG APRN) EKG EKG [] (RHEA CHANG APRN) Radiology/Procedures Radiology/Procedures [] (RHEA CHANG APRN) Heart Score C/O Chest Pain: No Risk Factors: Risk Factors: DM, Current or recent (<one month) smoker, HTN, HLP, family history of CAD, obesity. Risk Scores: Risk Factors: DM, Current or recent (<one month) smoker, HTN, HLP, family history of CAD, obesity. (RHEA CHANG APRN) Course & Med Decision Making Course & Med Decision Making Pertinent Labs and Imaging studies reviewed. (See chart for details) 70-year-old female, vital signs reviewed, presents emergency department requesting refill of medication for yeast infection. Patient's physical e xamination consistent with yeast infection of the lower abdomen, patient is obese with large skin folds, will prescribe nystatin powder with strict follow- up with patient's primary care physician, call tomorrow for an appointment for this week, patient is amenable to ED discharge planning. Discussed with the patient all findings and diagnostic testing as well as the need to follow-up with their primary care provider for further evaluation and treatment or return to the ED if any new or worsening symptoms. Strict return precautions were also discussed at length, the patient voiced understanding and agreement with the discharge planning. The patient was nontoxic in appearance, in no apparent distress, and hemodynamically stable at the time of disposition. (RHEA CHANG APRN) Dragon Disclaimer Dragon Disclaimer This electronic medical record was generated, in whole or in part, using a voice recognition dictation system. (RHEA CHANG APRN) Attending Co-Sign The patient was seen and interviewed as well as examined at the bedside. The chart was reviewed. The case was discussed. Agree with the plan of care. (LUIS VARELA DO) Departure Departure: Impression: Primary Impression: Skin yeast infection Disposition: HOME / SELF CARE / HOMELESS Condition: GOOD Referrals: MARSHAL CEE MD (PCP) Patient Instructions: Yeast Infection of the Skin, [id number] Additional Instructions: You were seen today in the emergency department for yeast infection of your skin of the lower abdomen. You had stated you are out of the nystatin powder, I am prescribing you additional dosing of nystatin powder. Please keep the area of your yeast infection clean and dry and cleanse daily with mild soap and water, dry thoroughly prior to placing clothing over the area. As we discussed, please follow-up with your primary care physician Dr. Cee, call tomorrow for an appointment to be seen this week. Thank you for visiting our Emergency Department. It was a pleasure taking care of you today in the emergency department and we appreciate you trusting us with your care. If any additional problems come up don't hesitate to return to visit us. Please follow up with your primary care provider so they can plan additional care if needed and know about the problem that you had. If symptoms worsen come back to the Emergency Department. Any concerning symptoms that start such as chest pain, shortness of air, weakness or numbness on one side of the body, running high fevers or any other concerning symptoms return to the ER. Scripts Nystatin (NYSTATIN) 15 Gm Powder 1 KATELIN TP BID for yeast infection of skin for 7 Days, #1 BOTTLE 0 Refills apply to affected area(s) Prov: RHEA CHANG APRN 02/26/21 RHEA CHANG APRN Feb 26, 2021 10:35 LUIS VARELA DO Mar 06, 2021 18:07
[2021-03-02] MEDS ORDERED: AMLO-187 PO (10:05)
[2021-03-02] MEDS ORDERED: GABA-586 PO (10:05)
[2021-03-02] MEDS ORDERED: TRAM50TA PO (10:05)
[2021-03-02] MEDS ORDERED: ASPI-889 PO (10:05)
[2021-03-02] MEDS ORDERED: INSU100I11 SQ (10:05)
[2021-03-02] MEDS ORDERED: CHOL10004 PO (10:05)
[2021-03-02] MEDS ORDERED: ATOR20TA58 PO (10:05)
== END 2021-02-26 10:38 | disposition home or self-care (01) ==
LOC: ER 09:41
DX: B37.2 Candidiasis of skin and nail (principal); E11.9 Type 2 diabetes mellitus without complications; I10 Essential (primary) hypertension; I25.2 Old myocardial infarction; Z86.73 Personal history of transient ischemic attack (TIA), and cerebral infarction without residual deficits; Z88.2 Allergy status to sulfonamides; Z88.5 Allergy status to narcotic agent; Z91.040 Latex allergy status; Z88.8 Allergy status to other drugs, medicaments and biological substances
CPT/HCPCS: 99283

== ENCOUNTER 2021-02-27 18:53 | Inpatient (IN) | payer OTHER, MEDICAID ==
[~2021-02-27] VITALS: Ht 160 cm; Wt 91.9 kg
[~2021-02-27 18:53] MED LIST changes: +NYST15PO9 TP
[2021-02-27] MEDS ORDERED: IV RINGERS SOLUTION,LACTATED 1,000 ML IV SCH (19:15)
--- NOTE | 2021-02-27 19:20 | PHYS DOC ---
Past History Past Medical History: Cancer, Diabetes, Hypertension, MA, Stroke, Other Additional Past Medical Histor: MVP, cervical and breast CA, shingles Past Surgical History: Appendectomy, Cancer Surgery, Cholecystectomy, Hysterectomy, Tubal ligation Alcohol Use: Occasionally Drug Use: None General Adult EDM: Chief Complaint: FATIGUE HPI: HPI: :.".. Just too weak..".. "I can even walk I am so weak" Patient is a 70 year old female who presents with above hx and complaints of generalize weakness and fatigue. Patient denies any changes in meds. 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 Pt. no recent travel. No specific ill contacts. No history immunosuppression. Does complain of cellulitis rash area and peritoneal area. Patient does have a history of diabetes. Has had previous admission for episodes of weakness in 2018. Patient pt. follows with Dr. Cee. Review of Systems: Review of Systems: Constitutional: Denies fever or chills Eyes: Denies change in visual acuity HENT: Denies nasal congestion or sore throat Respiratory: Denies cough or shortness of breath Cardiovascular: Denies chest pain or edema GI: Denies abdominal pain, nausea, vomiting, bloody stools or diarrhea : Denies dysuria Musculoskeletal: Denies back pain or joint pain. Complains of generalized weakness Integument: Complains of a rash and peritoneal area Neurologic: Denies headache, focal weakness or sensory changes Endocrine: Denies polyuria or polydipsia Lymphatic: Denies swollen glands Psychiatric: Denies depression or anxiety Family History: Family History: Noncontributory presentation Current Medications: Current Meds: See nursing for home meds Allergies: Allergies: Allergies Coded Allergies Type Severity Reaction Last Updated Verified Sulfa (Sulfonamide Antibiotics) Allergy Intermediate 12/03/17 Yes codeine Allergy Intermediate 12/03/17 Yes adhesive Allergy Mild Rash 12/04/17 Yes latex Allergy Mild Rash 12/04/17 Yes acetaminophen Adverse Reaction Intermediate 12/03/17 Yes Physical Exam: PE: Constitutional: Moderate acute distress, non-toxic appearance. [] HENT: Normocephalic, atraumatic, bilateral external ears normal, oropharynx moist, no oral exudates, nose normal. [] Eyes: PERRLA, EOMI, conjunctiva normal, no discharge. [] Neck: Normal range of motion, no tenderness, supple, no stridor. More than 17 inches circumference Cardiovascular:Heart rate regular rhythm, no murmur [] Lungs & Thorax: Bilateral breath sounds bilateral basal crackles auscultation [] Abdomen: Bowel sounds normal, soft, no tenderness, no masses, no pulsatile masses. Obese. Skin: Warm, dry, no erythema, pelvic rash- appears to be Jocelyn Back: No tenderness, no CVA tenderness. [] Extremities: No tenderness, no cyanosis, no clubbing, ROM intact, bilateral ankle edema. [] Neurologic: Alert and oriented X 3, normal motor function, normal sensory function, no focal deficits noted. [] Psychologic: Affect anxious, judgement normal, mood normal. [] EKG: EKG: My interpretation EKG shows a sinus rhythm at 78 bpm. No acute morphology appreciated on EKG. Time EKG was 1958hrs.[] Radiology/Procedures: Radiology/Procedures: [[place] [id number] IMAGING REPORT Signed PATIENT: FRANK GOTTI ACCOUNT: [id number] : 1950 LOCATION: ER AGE: 70 SEX: F EXAM STATUS: REG ER ORD. PHYSICIAN: DWAINE MCKINNEY MD REASON: Fatigue, dyspnea PROCEDURE: PORTABLE CHEST 1V Exam performed: One view chest. Indication: Reason: Fatigue, dyspnea / Spl. Instructions: / History: Date of Service: 02/27/2021 7:18 PM Comparison: 2 views chest from 11/10/2020. Single AP upright portable view chest findings: Cardiomediastinal silhouette is within limits of normal. Mild haziness in the left lung base appears similar to the prior exam and could be accentuated due to overlying breast shadow. Surgical clips in the left axilla. No acute infiltrates, effusion or pneumothorax is detected. The bony structures are nor mal. Impression: Stable one view chest. No acute cardiopulmonary process is detected. Electronically signed by: Mica Rockwell MD (02/27/2021 7:59 PM) [facility] DICTATED AND SIGNED BY: MICA ROCKWELL MD DATE: 02/27/211958 CC: MARSHAL CEE MD; DWAINE MCKINNEY MD ~MTH0 0 ][place] [id number] IMAGING REPORT Signed PATIENT: FRANK GOTTI ACCOUNT: [id number] : 1950 LOCATION: [address] [place] [address] AGE: 70 SEX: F EXAM STATUS: ADM IN ORD. PHYSICIAN: DWAINE MCKINNEY MD REASON: Weak Rt arm and legs PROCEDURE: CT HEAD WO CONTRAST Exam: CT head INDICATION: Right arm and leg weakness TECHNIQUE: Sequential axial images through the head were obtained without the administration of IV contrast. Exposure: One or more of the following in the visualized dose reduction techniques were utilized for this examination: 1. Automated exposure control 2. Adjustment of the MA and/or KV according to patient size 3. Use of iterative of reconstructive technique Comparisons: None FINDINGS: No focal parenchymal lesion or hemorrhage is identified. There is no midline shift or sulcal effacement. No acute vascular territory infarction is identified. Palomares-white distinction is preserved. The ventricular system is within normal limits without compression hydrocephalus. The basal cisterns are well maintained. The visualized portions of the paranasal sinuses and mastoid air cells are well- pneumatized. No acute fractures. IMPRESSION: No acute intracranial abnormality. Electronically signed by: Jj Seymour MD (02/27/2021 10:47 PM) [facility] DICTATED AND SIGNED BY: JJ SEYMOUR MD DATE: 02/27/212245 CC: MARSHAL CEE MD; DWAINE MCKINNEY MD ~MTH0 0 Heart Score: C/O Chest Pain: No HEART Score for Chest Pain: HEART Score for Chest Pain Response (Comments) Value History Slighlty/Non-Suspicious 0 ECG Normal 0 Age > 65 2 Risk Factors 1 or 2 Risk Factors 1 Troponin < Normal Limit 0 Total 3 Risk Factors: Risk Factors: DM, Current or recent (<one month) smoker, HTN, HLP, family history of CAD, obesity. Risk Scores: Score 0 - 3: 2.5% MACE over next 6 weeks - Discharge Home Score 4 - 6: 20.3% MACE over next 6 weeks - Admit for Clinical Observation Score 7 - 10: 72.7% MACE over next 6 weeks - Early Invasive Strategies Course & Med Decision Making: Course & Med Decision Making Pertinent Labs and Imaging studies reviewed. (See chart for details) Discussed presentation, testing and treatment plan with Dr. Cee. Will admit to his service for further evaluation and treatment. And treatment of her hyperglycemia. Impression: 1. Weakness 2. DM - Hyperglycemia 426 3. Hyponatremia 131 4. Perineal rash appears to be Jocelyn Cellulitis [] Dragon Disclaimer: Dragon Disclaimer: This electronic medical record was generated, in whole or in part, using a voice recognition dictation system. Departure Departure: Referrals: MARSHAL CEE MD (PCP) Suzanne Disclaimer This chart was dictated in whole or in part using Voice Recognition software in a busy, high-work load, and often noisy Emergency Department environment. It may contain unintended and wholly unrecognized errors or omissions. DWAINE MCKINNEY MD Feb 27, 2021 19:20
[2021-02-27 19:52] LABS: BASO # 0.1 x10^3/uL (0.0-0.2); BASO % 1 % (0-3); EOS # 0.3 x10^3/uL (0.0-0.7); EOS % 3 % (0-3); HEMATOCRIT 39.8 % (36.0-47.0); HEMOGLOBIN 13.2 g/dL (12.0-15.5); LYMPH # 3.1 x10^3/uL (1.0-4.8); LYMPH % 34 % (24-48); MEAN CORPUSCULAR HEMOGLOBIN 31 pg (25-35); MEAN CORPUSCULAR HGB CONC 33 g/dL (31-37); MEAN CORPUSCULAR VOLUME 94 fL (79-100); MONO # 0.9 x10^3/uL (0.0-1.1); MONO % 10 % (0-9); NEUT # 4.7 x10^3uL (1.8-7.7); NEUT % 52 % (31-73); PLATELET COUNT 282 x10^3/uL (140-400); RED BLOOD COUNT 4.23 x10^6/uL (3.50-5.40); RED CELL DISTRIBUTION WIDTH 13.3 % (11.5-14.5); WHITE BLOOD COUNT 9.1 x10^3/uL (4.0-11.0)
[2021-02-27 20:00] LABS: CALCIUM 8.9 mg/dL (8.5-10.1); CREATININE 0.9 mg/dL (0.6-1.0); GFR 62.1; POTASSIUM 3.8 mmol/L (3.5-5.1)
--- NOTE | 2021-02-27 20:02 | RAD ---
Exam performed: One view chest. Indication: Reason: Fatigue, dyspnea / Spl. Instructions: / History: Date of Service: 02/27/2021 7:18 PM Comparison: 2 views chest from 11/10/2020. Single AP upright portable view chest findings: Cardiomediastinal silhouette is within limits of normal. Mild haziness in the left lung base appears similar to the prior exam and could be accentuated due to overlying breast shadow. Surgical clips in the left axilla. No acute infiltrates, effusion or pneumothorax is detected. The bony structures are normal. Impression: Stable one view chest. No acute cardiopulmonary process is detected. Electronically signed by: Mica Rockwell MD (02/27/2021 7:59 PM) [facility]
[2021-02-27 20:15] LABS: DIRECT BILIRUBIN 0.1 mg/dL (0.0-0.2); TOTAL BILIRUBIN 0.3 mg/dL (0.2-1.0); TOTAL PROTEIN 7.3 g/dL (6.4-8.2)
[2021-02-27 20:30] LABS: BARBITURATES NEG (NEG); BENZODIAZEPINES NEG (NEG); CANNABINOIDS NEG (NEG); COCAINE NEG (NEG); METHADONE NEG (NEG); OPIATES NEG (NEG); PHENCYCLIDINE NEG (NEG)
[2021-02-27 20:31] LABS: AMPHETAMINE/METHAMPHETAMINE NEG (NEG)
[2021-02-27 20:36] LABS: INFLUENZA A PATIENT NEGATIVE (NEGATIVE); INFLUENZA B PATIENT NEGATIVE (NEGATIVE)
[2021-02-27 20:45] LABS: CLARITY,URINE HAZY; COLOR,URINE YELLOW
[2021-02-27 20:46] LABS: BACTERIA,URINE 0 /HPF (0-FEW); BILIRUBIN,URINE NEG (NEG); GLUCOSE,URINE >=1000 mg/dL (NEG); NITRITE,URINE NEG (NEG); SQUAMOUS EPITHELIAL CELL,UR FEW /LPF; UROBILINOGEN,URINE 0.2 mg/dL (0.2 mg/dL)
--- NOTE | 2021-02-27 21:00 | EKG ---
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
[2021-02-27] MEDS ORDERED: INSULIN REGULAR VIAL 100 UNIT in IV NORMAL SALINE 100ML 100 ML IV PRN (21:30)
[2021-02-27] MEDS ORDERED: ONDANSETRON PF 4 MG/2 ML VIAL. IVP PRN (21:30)
[2021-02-27] MEDS ORDERED: INSULIN REGULAR 100 UNIT/ML 3ML VIAL. IV ONE (21:30)
--- NOTE | 2021-02-27 22:50 | RAD ---
Exam: CT head INDICATION: Right arm and leg weakness TECHNIQUE: Sequential axial images through the head were obtained without the administration of IV co ntrast. Exposure: One or more of the following in the visualized dose reduction techniques were utilized for this examination: 1. Automated exposure control 2. Adjustment of the MA and/or KV according to patient size 3. Use of iterative of reconstructive technique Comparisons: None FINDINGS: No focal parenchymal lesion or hemorrhage is identified. There is no midline shift or sulcal effaceme nt. No acute vascular territory infarction is identified. Palomares-white distinction is preserved. The ventricular system is within normal limits without compression hydrocephalus. The basal cisterns are well maintained. The visualized portions of the paranasal sinuses and mastoid air cells are well-pneumatized. No acute fractures. IMPRESSION: No acute intracranial abnormality. Electronically signed by: Jj Olvera MD (02/27/2021 10:47 PM) [facility]
--- NOTE | 2021-02-27 23:55 | NUR ---
The patient, FRANK GOTTI, 70 y/o, F admitted by MARSHAL CEE MD, was given written information regarding hospital policies, unit procedures and contact persons. Valuables were checked and vitals obtained. Pt admitted with hyperglycemia and hyponatremia. She is A&Ox4 on room air uses a bedpan due weakness. Pt is able to express own concerns currently resting in bed. Will continue to monitor.
[2021-02-28] VITALS: BP 151/81
[2021-02-28] MEDS: amLODIPine BESYLATE 10 MG TABLET PO SCH ×2 (00:54→08:20)
[2021-02-28] MEDS ORDERED: GABAPENTIN 300 MG CAPSULE. PO ONE (01:00)
[2021-02-28] MEDS ORDERED: NADO20TA12 PO (02:14)
[2021-02-28] MEDS ORDERED: DIPH25CA58 PO (02:15)
[2021-02-28] MEDS: IPRATRPIUM/ALBUTEROL 0.5/2.5MG 3 ML NEBU. NEB SCH ×2 (02:33→09:20)
[2021-02-28 06:14] VITALS: BP 122/72
[2021-02-28 06:19] LABS: BASO # 0.1 x10^3/uL (0.0-0.2); BASO % 1 % (0-3); EOS # 0.3 x10^3/uL (0.0-0.7); EOS % 3 % (0-3); HEMATOCRIT 38.4 % (36.0-47.0); LYMPH # 3.3 x10^3/uL (1.0-4.8); LYMPH % 38 % (24-48); MEAN CORPUSCULAR HEMOGLOBIN 32 pg (25-35); MEAN CORPUSCULAR HGB CONC 34 g/dL (31-37); MEAN CORPUSCULAR VOLUME 94 fL (79-100); MONO # 0.9 x10^3/uL (0.0-1.1); MONO % 11 % (0-9); NEUT % 47 % (31-73); PLATELET COUNT 246 x10^3/uL (140-400); RED BLOOD COUNT 4.11 x10^6/uL (3.50-5.40); RED CELL DISTRIBUTION WIDTH 13.1 % (11.5-14.5); WHITE BLOOD COUNT 8.5 x10^3/uL (4.0-11.0)
[2021-02-28 06:35] LABS: CALCIUM 8.7 mg/dL (8.5-10.1); CREATININE 0.6 mg/dL (0.6-1.0); GFR 99.1; POTASSIUM 3.4 mmol/L (3.5-5.1)
[2021-02-28] MEDS ORDERED: POTASSIUM CHLORIDE 20 MEQ TABLET.ER. PO ONE (06:45)
--- NOTE | 2021-02-28 07:09 | NUR ---
PT HAD INCREASED TROP 0.976 THIS MORNING AT 0559. NO ONE NOTIFIED FLOOR OF THE LAB VALUE. WILL PASS ON TODAY SHIFT.
--- NOTE | 2021-02-28 07:40 | NUR ---
Request DC of Pts. breathing tx order. Spo2 97% on RA. Labs normal. CXR normal. No breathing related history other than home Cpap rerported. No home RT meds reported. Denies cough or SOA as reported by ED Doctor. Thank you, Respiratory therapy
--- NOTE | 2021-02-28 08:03 | PDOC2 ---
CARDIAC CONSULT DATE OF CONSULT DOS: DATE: 02/28/21 TIME: 07:55 REASON FOR CONSULT Reason for Consult Elevated troponin REFERRING PHYSICIAN Referring Physician Dr. Mosher SOURCE Source: Chart review, Patient HPI History of Present Illness This is a 70 yo female who presented secondary to weakness and fatigue. Troponin level noted to be mildly elevated, which prompted this consult. Also complaining of yeast infection in her abdominal folds. Has been very uncomfortable. Yesterday, reports he legs were very weak and she had difficulty ambulating. No chest pain, dizziness, diaphoresis, or nausea/vomiting. PAST MEDICAL HISTORY Cardiovascular: HTN Pulmonary: Other (ANCELMO) CENTRAL NERVOUS SYSTEM: TIA GI: GERD Heme/Onc: Cancer (breast ) Psych: Anxiety, Depression Musculoskeletal: Osteoarthritis PAST SURGICAL HISTORY Past Surgical History: Hysterectomy, Other (breast lumpectomy, gastric sleeve ) FAMILY HISTORY Family History: Hypertension SOCIAL HISTORY Smoke: No ALCOHOL: none Drugs: None Lives: with Family CURRENT MEDICATIONS Current Medications Current Medications Lactated Ringer's 1,000 ml @ 100 mls/hr Q10H IV Last administered on 02/27/21at 20:42; Start 02/27/21 at 19:15; Stop 02/28/21 at 05:14; Status DC Ondansetron HCl (Zofran) 4 mg PRN Q4HRS PRN IVP NAUSEA/VOMITING Last administered on 02/27/21at 22:31; Start 02/27/21 at 21:30; Stop 02/28/21 at 21:29 Albuterol/ Ipratropium (Duoneb) 3 ml RTQID NEB ; Start 02/28/21 at 08:00; Stop 03/01/21 at 07:59 Insulin Human Regular (HumuLIN R VIAL) 10 unit 1X ONCE IV Last administered on 02/27/21at 21:30; Start 02/27/21 at 21:30; Stop 02/27/21 at 21:34; Status DC Insulin Human Regular 100 unit/ Sodium Chloride 101 ml @ 0 mls/hr CONT PRN IV SEE I/O RECORD Last administered on 02/27/21at 22:14; Start 02/27/21 at 21:30 Lorazepam (Ativan Inj) 2 mg 1X ONCE IVP Last administered on 02/27/21at 22:30; Start 02/27/21 at 21:30; Stop 02/27/21 at 21:36; Status DC Nystatin/ Triamcinolone Acetonide (Mycolog) 1 jose manuel BID TP ; Start 02/28/21 at 09:00 Lisinopril (Prinivil) 20 mg DAILY PO ; Start 02/28/21 at 09:00 Nystatin (Nystop) 1 jose manuel BID TP ; Start 02/28/21 at 09:00 Amlodipine Besylate (Norvasc) 10 mg DAILY PO Last administered on 02/28/21at 00:54; Start 02/28/21 at 00:15 Gabapentin (Neurontin) 300 mg ONCE ONCE PO Last administered on 02/28/21at 00:53; Start 02/28/21 at 01:00; Stop 02/28/21 at 01:01; Status DC Gabapentin (Neurontin) 300 mg HS PO ; Start 02/28/21 at 21:00 Tramadol HCl (Ultram) 50 mg PRN Q6HRS PRN PO PAIN; Start 02/28/21 at 01:00 Potassium Chloride (Klor-Con) 40 meq 1X ONCE PO ; Start 02/28/21 at 06:45; Stop 02/28/21 at 06:46; Status DC Active Scripts Active Nystatin 15 Gm Powder 1 Jose Manuel TP BID 7 Days apply to affected area(s) Reported Benadryl (Diphenhydramine Hcl) 25 Mg Capsule 50 Mg PO HS Corgard (Nadolol) 20 Mg Tablet 20 Tab PO DAILY 30 Days [place]-3 Acid Ethyl Esters 1 Gm Capsule 2 Cap PO BID Lisinopril 20 Mg Tablet 20 Mg PO DAILY ALLERGIES Allergies: Coded Allergies: Sulfa (Sulfonamide Antibiotics) (Verified Allergy, Intermediate, 12/03/17) codeine (Verified Allergy, Intermediate, 12/03/17) adhesive (Verified Allergy, Mild, Rash, 12/04/17) latex (Verified Allergy, Mild, Rash, 12/04/17) acetaminophen (Verified Adverse Reaction, Intermediate, 12/03/17) ROS Review of Systems 14 point ROS conducted with pertinent positives noted above in HPI PHYSICAL EXAM General: Alert, Oriented X3, Cooperative, No acute distress HEENT: Atraumatic Lungs: Clear to auscultation Heart: Regular rate Abdomen: Soft, No tenderness, Other (obese) Extremities: Normal pulses, Other (trace bilateral LE edema ) Skin: No significant lesion (peritoneal area rash ) Neuro: Normal speech, Sensation intact Psych/Mental Status: Mental status NL, Mood NL MUSCULOSKELETAL: Osteoarthritic changes both hands VITALS Vital Signs Vital Signs Date Time Temp Pulse Resp B/P (MAP) Pulse Ox O2 Delivery O2 Flow Rate FiO2 02/28/21 06:14 98.2 76 18 122/72 (89) 97 Room Air LABS LABS Laboratory Tests Test 02/27/21 19:10 02/27/21 19:40 02/27/21 19:49 02/27/21 23:52 White Blood Count 9.1 x10^3/uL (4.0-11.0) Red Blood Count 4.23 x10^6/uL (3.50-5.40) Hemoglobin 13.2 g/dL (12.0-15.5) Hematocrit 39.8 % (36.0-47.0) Mean Corpuscular Volume 94 fL (79-100) Mean Corpuscular Hemoglobin 31 pg (25-35) Mean Corpuscular Hemoglobin Concent 33 g/dL (31-37) Red Cell Distribution Width 13.3 % (11.5-14.5) Platelet Count 282 x10^3/uL (140-400) Neutrophils (%) (Auto) 52 % (31-73) Lymphocytes (%) (Auto) 34 % (24-48) Monocytes (%) (Auto) 10 % (0-9) Eosinophils (%) (Auto) 3 % (0-3) Basophils (%) (Auto) 1 % (0-3) Neutrophils # (Auto) 4.7 x10^3uL (1.8-7.7) Lymphocytes # (Auto) 3.1 x10^3/uL (1.0-4.8) Monocytes # (Auto) 0.9 x10^3/uL (0.0-1.1) Eosinophils # (Auto) 0.3 x10^3/uL (0.0-0.7) Basophils # (Auto) 0.1 x10^3/uL (0.0-0.2) Prothrombin Time < 9.3 SEC (9.4-11.4) Prothromb Time International Ratio < 0.9 (0.9-1.1) Activated Partial Thromboplast Time 25 SEC (23-33) D-Dimer (Matilde) 0.51 mg/L (0.00-0.50) Sodium Level 131 mmol/L (136-145) Potassium Level 3.8 mmol/L (3.5-5.1) Chloride Level 97 mmol/L (98-107) Carbon Dioxide Level 25 mmol/L (21-32) Anion Gap 9 (6-14) Blood Urea Nitrogen 20 mg/dL (7-20) Creatinine 0.9 mg/dL (0.6-1.0) Estimated GFR (Cockcroft-Gault) 62.1 Glucose Level 426 mg/dL (70-99) Calcium Level 8.9 mg/dL (8.5-10.1) Magnesium Level 2.0 mg/dL (1.8-2.4) Total Bilirubin 0.3 mg/dL (0.2-1.0) Direct Bilirubin 0.1 mg/dL (0.0-0.2) Aspartate Amino Transf (AST/SGOT) 17 U/L (15-37) Alanine Aminotransferase (ALT/SGPT) 26 U/L (14-59) Alkaline Phosphatase 81 U/L (46-116) Creatine Kinase 74 U/L (26-192) Troponin I Quantitative < 0.017 ng/mL (0-0.055) LT-Rfs-L-Type Natriuretic Peptide 109 pg/mL (0-124) Total Protein 7.3 g/dL (6.4-8.2) Albumin 3.0 g/dL (3.4-5.0) Urine Collection Type Void Urine Color Yellow Urine Clarity Hazy Urine pH 6.5 Urine Specific [place] 1.015 Urine Protein Neg (NEG-TRACE) Urine Glucose (UA) >=1000 mg/dL (NEG) Urine Ketones (Stick) Neg mg/dL (NEG) Urine Blood Large (NEG) Urine Nitrite Neg (NEG) Urine Bilirubin Neg (NEG) Urine Urobilinogen Dipstick 0.2 mg/dL (0.2 mg/dL) Urine Leukocyte Esterase Neg (NEG) Urine RBC 6-10 /HPF (0-2) Urine WBC 1-4 /HPF (0-4) Urine Squamous Epithelial Cells Few /LPF Urine Bacteria 0 /HPF (0-FEW) Urine Opiates Screen Neg (NEG) Urine Methadone Screen Neg (NEG) Urine Barbiturates Neg (NEG) Urine Phencyclidine Screen Neg (NEG) Urine Amphetamine/Methamphetamine Neg (NEG) Urine Benzodiazepines Screen Neg (NEG) Urine Cocaine Screen Neg (NEG) Urine Cannabinoids Screen Neg (NEG) Urine Ethyl Alcohol Neg (NEG) Influenza Type A (Rapid) Negative (NEGATIVE) Influenza Type B (Rapid) Negative (NEGATIVE) SARS-CoV-2 Antigen (Rapid) Negative (NEGATIVE) Glucose (Fingerstick) 264 mg/dL (70-99) Test 02/28/21 00:56 02/28/21 02:00 02/28/21 03:03 02/28/21 04:07 Glucose (Fingerstick) 258 mg/dL (70-99) 229 mg/dL (70-99) 194 mg/dL (70-99) 149 mg/dL (70-99) Test 02/28/21 05:11 02/28/21 05:59 02/28/21 06:07 02/28/21 07:22 Glucose (Fingerstick) 115 mg/dL (70-99) 119 mg/dL (70-99) 162 mg/dL (70-99) White Blood Count 8.5 x10^3/uL (4.0-11.0) Red Blood Count 4.11 x10^6/uL (3.50-5.40) Hemoglobin 13.0 g/dL (12.0-15.5) Hematocrit 38.4 % (36.0-47.0) Mean Corpuscular Volume 94 fL (79-100) Mean Corpuscular Hemoglobin 32 pg (25-35) Mean Corpuscular Hemoglobin Concent 34 g/dL (31-37) Red Cell Distribution Width 13.1 % (11.5-14.5) Platelet Count 246 x10^3/uL (140-400) Neutrophils (%) (Auto) 47 % (31-73) Lymphocytes (%) (Auto) 38 % (24-48) Monocytes (%) (Auto) 11 % (0-9) Eosinophils (%) (Auto) 3 % (0-3) Basophils (%) (Auto) 1 % (0-3) Neutrophils # (Auto) 4.0 x10^3uL (1.8-7.7) Lymphocytes # (Auto) 3.3 x10^3/uL (1.0-4.8) Monocytes # (Auto) 0.9 x10^3/uL (0.0-1.1) Eosinophils # (Auto) 0.3 x10^3/uL (0.0-0.7) Basophils # (Auto) 0.1 x10^3/uL (0.0-0.2) Sodium Level 138 mmol/L (136-145) Potassium Level 3.4 mmol/L (3.5-5.1) Chloride Level 105 mmol/L (98-107) Carbon Dioxide Level 26 mmol/L (21-32) Anion Gap 7 (6-14) Blood Urea Nitrogen 15 mg/dL (7-20) Creatinine 0.6 mg/dL (0.6-1.0) Estimated GFR (Cockcroft-Gault) 99.1 Glucose Level 132 mg/dL (70-99) Calcium Level 8.7 mg/dL (8.5-10.1) Troponin I Quantitative 0.976 ng/mL (0-0.055) ASSESSMENT/PLAN Assessment/Plan 1. Weakness, fatigue; rapid COVID negative. PCR pending. CT head without acute findings 2. Diabetes, II; uncontrolled 3. Hypertensive urgency 4. Mild troponin elevation; highest 0.9. Possibly type II, demand ischemia secondary to above. CP free 5. Hyponatremia, hypokalemia Recommendations Lipids, TSH, Mg Replace electrolytes as warranted Trend troponin ASA Echo to assess LV systolic function Home antiHTN therapy resumed Hydralazine IV PRN Probable outpatient ischemic evaluation TREVON SOLOMON APRN Feb 28, 2021 08:03
[2021-02-28] MEDS ORDERED: hydrALAZINE 20 MG/ML VIAL. IV PRN (08:15)
[2021-02-28] MEDS: NYSTATIN/TRIAMCIN TOPICAL OINTMENT 15GM TUBE. TP SCH ×2 (08:21→20:47)
[2021-02-28] MEDS: NYSTATIN TOPICAL POWDER 15GM BOTTLE. TP SCH ×2 (08:21→20:47)
[2021-02-28] MEDS: LISINOPRIL 20 MG TABLET PO SCH (08:21)
[2021-02-28] MEDS: ASPIRIN ENTERIC COATED 81 MG TABLET.DR. PO SCH (08:28)
[2021-02-28] MEDS ORDERED: DEXTROSE 50% 25 GM / 50ML DISP.SYRIN. IV PRN (09:30)
[2021-02-28] MEDS ORDERED: IOHEXOL 350 MG/ML 100 ML VIAL. IV ONE (09:30)
--- NOTE | 2021-02-28 09:57 | HP ---
HISTORY OF PRESENT ILLNESS: A 70-year-old female with a history of poorly controlled diabetes, generalized weakness, difficulty even moving about. The patient notes increased fatigue, also notes that she has difficulty moving at all, standing, getting out of bed. This has been a progressive type of weakness that has been going on since 2018 and has gotten to the point where she is pretty much bedridden. The patient was admitted although for chest pain as she was unable to mobilize out of the Emergency Room. The patient on exam shows a history of TIA, headaches, heart attacks, sleep apnea, CPAP at night, hernia repair, cholecystectomy, appendectomy, breast cancer, cervical cancer, lumpectomy, bilateral reduction, hysterectomy, arthritis, orthopedic surgery, depression. Immunizations for tetanus and pneumonia all up to date. She also has had surgery for gastric sleeve. FAMILY HISTORY: Positive for diabetes, depression, abdominal aortic aneurysm. ALLERGIES: SULFA, CODEINE, ACETAMINOPHEN, LATEX, ADHESIVE TAPE. SOCIAL HISTORY: Denies smoking, alcohol or drug use. FULL CODE. REVIEW OF SYSTEMS: Generalized weakness overall. No nausea or vomiting or abdominal pain. Does have chest discomfort, substernal, but without exertion. The patient denies any problem with her bowels. Does have problems with her bladder incontinence as well as unable to control her bladder. Extremities extremely weak, muscle atrophy and decreased sensation to the lower extremities. She has a diabetic neuropathy which is poorly controlled. PHYSICAL EXAMINATION: GENERAL: This is a pleasant white female. VITAL SIGNS: Initial blood pressure was 210/90, respiratory rate 22, pulse 73, afebrile, 91 on room air; however, the patient has improved to 120/70, respiratory rate 18, pulse 76, 97 on room air. HEENT: The patient is alert and oriented, very weak, has a BiPAP on. Eyes are PERRL, EOMI. Sclerae clear. NECK: Supple without JVD, carotid bruit or thyromegaly. LUNGS: Diminished throughout, but basically clear to auscultation. CARDIOVASCULAR: Regular sinus rhythm, S1, S2, without murmur, rub, thrill or extra heart sounds. ABDOMEN: Protuberant, very soft, nontender, no rebounding or guarding. EXTREMITIES: No clubbing, cyanosis, perhaps trace edema with noted generalized weakness in the proximal and distal muscles. The patient otherwise had poor sensation to her lower extremities. LABORATORY DATA: Hemoglobin and hematocrit 13 and 39. Differential stable ____ and BUN and creatinine 15 and 0.6; GFR 99, glucose 132. Troponin 0.976. Serology negative for influenza A and SARS. Urine shows 6-10 red blood cells, large amounts of blood per 6-10 red blood cells. Magnesium was normal at 2.4. Other labs are still pending. Chest x-ray was unremarkable. CT of the head was unremarkable. No acute finding there. IMPRESSION: Chest pain, elevated troponin levels, generalized weakness possibly related to her neuropathy, think myasthenia gravis is another possibility as well. Also diabetic neuropathy, poorly controlled diabetes, hypertensive urgency, morbid obesity, moderate protein malnutrition, poorly controlled type 2 diabetes with diabetic neuropathy as well. We will work her up with PT, OT, possible Neurology consult. CT of the chest for positive D-dimer. ERMA/AMILCAR/COBY DR: ERMA/lito TID: [id number]
--- NOTE | 2021-02-28 10:48 | RAD ---
Examination: CT angiography chest with IV contrast HISTORY: History of shortness of breath, elevated d-dimer COMPARISON: None available Technique: Axial CT angiographic images of chest were performed with IV contrast. Coronal and sagitta l 3-D MIP reformats are performed Exposure: One or more of the following individualized dose reduction techniques were utilized for thi s examination: 1. Automated exposure control 2. Adjustment of the mA and/or kV according to patient size 3. Use of iterative reconstruction technique FINDINGS: The central airways are patent. No evidence of radiologically significant mediastinal lymphadenopathy identified. Coronary artery calcifications. Heart size grossly appears unremarkable. There is no lenin dence of filling defect identified in the main pulmonary arterial trunk and right and left arteries a nd the visualized lobar, segmental branches of the pulmonary arteries. Linear atelectasis bilateral u pper lobes and bibasilar lungs. Focal atelectasis or infiltrate left lingula. Mild decreased attenuat ion within the liver likely hepatic steatosis. The spleen, adrenals grossly appears unremarkable. Moderate degenerative changes thoracic spine. IMPRESSION: 1. No evidence of pulmonary embolism. 2. Linear atelectasis bilateral lungs. 3. Hepatic steatosis. Electronically signed by: John Sorenson MD (02/28/2021 10:46 AM) [id number]
[2021-02-28 10:49] VITALS: BP 156/83
[2021-02-28] MEDS: INSULIN LISPRO 300 UNITS/3 ML VIAL. SQ SCH ×2 (12:01→16:55)
[2021-02-28] MEDS ORDERED: PREGABALIN 75 MG CAPSULE PO SCH (14:00)
[2021-02-28 16:02] VITALS: BP 130/74
[2021-02-28] MEDS: traMADol 50 MG TABLET PO PRN (17:21)
--- NOTE | 2021-02-28 17:41 | NUR ---
SHIFT NOTE Elevated trop not relayed to Night RN from Lab prior to shift. Dr. Mosher called and Cardiology consulted. Trops continued to see trend, ASA and ECHO ordered by Cardiology. Pt resting comfortably throughout day. Pt able to ambulate on own with walker to bathroom and down hallway abotu 50 ft per PT/OT. Pt also able to perform ADLs and change own brief despite previous conversations with this RN and previous night RN. Will continue to monitor. CC, RN
--- NOTE | 2021-02-28 18:09 | CARD ---
MR#: [id number] Date of Study: 02/28/2021 Ordering Physician: TREVON SOLOMON, Referring Physician: TREVON SOLOMON, Tech: Winnie Arredondo, [facility] APPROVED REPORT EXAM: Two-dimensional and M-mode echocardiogram with Doppler and color Doppler. Other Information Quality : AverageHR: 85bpm Technically limited study due to body habitus. INDICATION Elevated Troponin RISK FACTORS Hypertension Hyperlipidemia Diabetes 2D DIMENSIONS RVDd2.4 (2.9-3.5cm)Left Atrium(2D)3.1 (1.6-4.0cm) IVSd1.2 (0.7-1.1cm)Aortic Root(2D)2.7 (2.0-3.7cm) LVDd5.3 (3.9-5.9cm)LVOT Diameter2.0 (1.8-2.4cm) PWd1.2 (0.7-1.1cm)LVDs2.3 (2.5-4.0cm) FS (%) 56.3 %SV116.4 ml Aortic Valve AoV Peak Aramis.185.5cm/sAoV VTI35.7cm AO Peak GR.13.8mmHgLVOT Peak Aramis.119.2cm/s LVOT VTI 25.65cmAO Mean GR.7mmHg [place]O (VMAX)2.67ou9ZUL (VTI)2.23cm2 Mitral Valve MV E Uomgfdae64.7cm/sMV E Peak Gr.5mmHg MV DECEL [id number] A Yytjbwwo659.2cm/s MV E Mean Gr.2mmHgE/A Ratio0.7 Pulmonary Valve PV Peak Xlsqokfh984.7cm/sPV Peak Grad.4mmHg Tricuspid Valve TR P. [id number] [id number] TR Peak Gr.[id number] LEFT VENTRICLE The left ventricle is normal size. There is mild concentric left ventricular hypertrophy. The left ve ntricular ejection Fraction is 50-55%. The distal septal wall through the apex appears hypokinetic. T ransmitral Doppler flow pattern is Grade I-abnormal relaxation pattern. RIGHT VENTRICLE The right ventricle is mildly dilated. There is normal right ventricular wall thickness. The right ve ntricular systolic function is normal. ATRIA The left atrium is not well visualized. The right atrium is not well visualized. The interatrial sept um is intact with no evidence for an atrial septal defect or patent foramen ovale as noted on 2-D or Doppler imaging. AORTIC VALVE The aortic valve is thickened but opens well. Doppler and Color Flow revealed no significant aortic r egurgitation. There is no significant aortic valvular stenosis. Calculated aortic valve area is 3 cm2 with maximum pressure gradient of 14 mmHg and mean pressure gradient of 7 mmHg. MITRAL VALVE The mitral valve is normal in structure and function. There is no evidence of mitral valve prolapse. There is no mitral valve stenosis. Doppler and Color-flow revealed trace mitral regurgitation. TRICUSPID VALVE The tricuspid valve is normal in structure and function. Doppler and Color Flow revealed trace tricus pid regurgitation with an estimated PAP of 22 mmHg. There is no tricuspid valve stenosis. PULMONIC VALVE The pulmonic valve is not well visualized. Doppler and Color Flow revealed trace pulmonic valvular re gurgitation. GREAT VESSELS The aortic root is normal in size. The ascending aorta is normal in size. The IVC was not visualized. PERICARDIAL EFFUSION There is no evidence of significant pericardial effusion. Critical Notification Critical Value: No <Conclusion> The left ventricle is normal size. The left ventricular ejection fraction is 50-55%. The distal septal wall through the apex appears hypokinetic. There is mild concentric left ventricular hypertrophy. Doppler and Color Flow revealed no significant aortic regurgitation. There is no significant aortic valvular stenosis. Doppler and Color-flow revealed trace mitral regurgitation. Doppler and Color Flow revealed trace tricuspid regurgitation with an estimated PAP of 22 mmHg. Signed by : Mario Alberto Burrell MD Electronically Approved : 02/28/2021 18:08:40
[2021-02-28 19:50] VITALS: BP 122/61
[2021-02-28] MEDS ORDERED: GABAPENTIN 300 MG CAPSULE. PO SCH (21:00)
[2021-03-01 00:31] VITALS: BP 147/83
[2021-03-01 01:11] LABS: HEMOGLOBIN A1C 11.8 % (4.8-5.6)
[2021-03-01 06:03] VITALS: BP 139/81
[2021-03-01] MEDS: INSULIN LISPRO 300 UNITS/3 ML VIAL. SQ SCH ×3 (08:02→18:40)
[2021-03-01] MEDS: ASPIRIN ENTERIC COATED 81 MG TABLET.DR. PO SCH (08:03)
[2021-03-01] MEDS: LISINOPRIL 20 MG TABLET PO SCH (08:03)
[2021-03-01] MEDS: amLODIPine BESYLATE 10 MG TABLET PO SCH (08:04)
[2021-03-01] MEDS: NYSTATIN TOPICAL POWDER 15GM BOTTLE. TP SCH ×2 (08:06→21:09)
[2021-03-01] MEDS: NYSTATIN/TRIAMCIN TOPICAL OINTMENT 15GM TUBE. TP SCH ×2 (08:09→21:00)
--- NOTE | 2021-03-01 08:49 | PDOC ---
TREVON SOLOMON TRAINING PROGRAM ASSISTANT 03/01/21 0849: CARDIO Progress Notes Date & Time Date of Service DATE: 03/01/21 TIME: 08:43 Time of Evaluation 08:43 Subjective Notes No chest pain, dizziness, diaphoresis. Weakness has improved. Vitals Vitals Vital Signs Date Time Temp Pulse Resp B/P (MAP) Pulse Ox O2 Delivery O2 Flow Rate FiO2 03/01/21 08:04 76 139/81 03/01/21 06:03 97.8 18 98 BiPAP/CPAP Weight Weight [ ] Input and Output I.O. Intake and Output 03/01/21 07:00 Intake Total 720 ml Balance 720 ml Intake Oral 720 ml # Voids 5 Laboratory Labs Laboratory Tests Test 02/27/21 19:10 02/27/21 19:40 02/27/21 19:49 02/27/21 23:52 White Blood Count 9.1 x10^3/uL (4.0-11.0) Red Blood Count 4.23 x10^6/uL (3.50-5.40) Hemoglobin 13.2 g/dL (12.0-15.5) Hematocrit 39.8 % (36.0-47.0) Mean Corpuscular Volume 94 fL (79-100) Mean Corpuscular Hemoglobin 31 pg (25-35) Mean Corpuscular Hemoglobin Concent 33 g/dL (31-37) Red Cell Distribution Width 13.3 % (11.5-14.5) Platelet Count 282 x10^3/uL (140-400) Neutrophils (%) (Auto) 52 % (31-73) Lymphocytes (%) (Auto) 34 % (24-48) Monocytes (%) (Auto) 10 % (0-9) Eosinophils (%) (Auto) 3 % (0-3) Basophils (%) (Auto) 1 % (0-3) Neutrophils # (Auto) 4.7 x10^3uL (1.8-7.7) Lymphocytes # (Auto) 3.1 x10^3/uL (1.0-4.8) Monocytes # (Auto) 0.9 x10^3/uL (0.0-1.1) Eosinophils # (Auto) 0.3 x10^3/uL (0.0-0.7) Basophils # (Auto) 0.1 x10^3/uL (0.0-0.2) Prothrombin Time < 9.3 SEC (9.4-11.4) Prothromb Time International Ratio < 0.9 (0.9-1.1) Activated Partial Thromboplast Time 25 SEC (23-33) D-Dimer (Matilde) 0.51 mg/L (0.00-0.50) Sodium Level 131 mmol/L (136-145) Potassium Level 3.8 mmol/L (3.5-5.1) Chloride Level 97 mmol/L (98-107) Carbon Dioxide Level 25 mmol/L (21-32) Anion Gap 9 (6-14) Blood Urea Nitrogen 20 mg/dL (7-20) Creatinine 0.9 mg/dL (0.6-1.0) Estimated GFR (Cockcroft-Gault) 62.1 Glucose Level 426 mg/dL (70-99) Calcium Level 8.9 mg/dL (8.5-10.1) Magnesium Level 2.0 mg/dL (1.8-2.4) Total Bilirubin 0.3 mg/dL (0.2-1.0) Direct Bilirubin 0.1 mg/dL (0.0-0.2) Aspartate Amino Transf (AST/SGOT) 17 U/L (15-37) Alanine Aminotransferase (ALT/SGPT) 26 U/L (14-59) Alkaline Phosphatase 81 U/L (46-116) Creatine Kinase 74 U/L (26-192) Troponin I Quantitative < 0.017 ng/mL (0-0.055) QA-Ban-J-Type Natriuretic Peptide 109 pg/mL (0-124) Total Protein 7.3 g/dL (6.4-8.2) Albumin 3.0 g/dL (3.4-5.0) Thyroid Stimulating Hormone (TSH) 2.324 uIU/mL (0.358-3.740) Urine Collection Type Void Urine Color Yellow Urine Clarity Hazy Urine pH 6.5 Urine Specific [place] 1.015 Urine Protein Neg (NEG-TRACE) Urine Glucose (UA) >=1000 mg/dL (NEG) Urine Ketones (Stick) Neg mg/dL (NEG) Urine Blood Large (NEG) Urine Nitrite Neg (NEG) Urine Bilirubin Neg (NEG) Urine Urobilinogen Dipstick 0.2 mg/dL (0.2 mg/dL) Urine Leukocyte Esterase Neg (NEG) Urine RBC 6-10 /HPF (0-2) Urine WBC 1-4 /HPF (0-4) Urine Squamous Epithelial Cells Few /LPF Urine Bacteria 0 /HPF (0-FEW) Urine Opiates Screen Neg (NEG) Urine Methadone Screen Neg (NEG) Urine Barbiturates Neg (NEG) Urine Phencyclidine Screen Neg (NEG) Urine Amphetamine/Methamphetamine Neg (NEG) Urine Benzodiazepines Screen Neg (NEG) Urine Cocaine Screen Neg (NEG) Urine Cannabinoids Screen Neg (NEG) Urine Ethyl Alcohol Neg (NEG) Coronavirus (COVID-19)(PCR) Negative (NEGATIVE) Influenza Type A (Rapid) Negative (NEGATIVE) Influenza Type B (Rapid) Negative (NEGATIVE) SARS-CoV-2 Antigen (Rapid) Negative (NEGATIVE) Glucose (Fingerstick) 264 mg/dL (70-99) Test 02/28/21 00:56 02/28/21 02:00 02/28/21 03:03 02/28/21 04:07 Glucose (Fingerstick) 258 mg/dL (70-99) 229 mg/dL (70-99) 194 mg/dL (70-99) 149 mg/dL (70-99) Test 02/28/21 05:11 02/28/21 05:59 02/28/21 06:07 02/28/21 07:22 Glucose (Fingerstick) 115 mg/dL (70-99) 119 mg/dL (70-99) 162 mg/dL (70-99) White Blood Count 8.5 x10^3/uL (4.0-11.0) Red Blood Count 4.11 x10^6/uL (3.50-5.40) Hemoglobin 13.0 g/dL (12.0-15.5) Hematocrit 38.4 % (36.0-47.0) Mean Corpuscular Volume 94 fL (79-100) Mean Corpuscular Hemoglobin 32 pg (25-35) Mean Corpuscular Hemoglobin Concent 34 g/dL (31-37) Red Cell Distribution Width 13.1 % (11.5-14.5) Platelet Count 246 x10^3/uL (140-400) Neutrophils (%) (Auto) 47 % (31-73) Lymphocytes (%) (Auto) 38 % (24-48) Monocytes (%) (Auto) 11 % (0-9) Eosinophils (%) (Auto) 3 % (0-3) Basophils (%) (Auto) 1 % (0-3) Neutrophils # (Auto) 4.0 x10^3uL (1.8-7.7) Lymphocytes # (Auto) 3.3 x10^3/uL (1.0-4.8) Monocytes # (Auto) 0.9 x10^3/uL (0.0-1.1) Eosinophils # (Auto) 0.3 x10^3/uL (0.0-0.7) Basophils # (Auto) 0.1 x10^3/uL (0.0-0.2) Sodium Level 138 mmol/L (136-145) Potassium Level 3.4 mmol/L (3.5-5.1) Chloride Level 105 mmol/L (98-107) Carbon Dioxide Level 26 mmol/L (21-32) Anion Gap 7 (6-14) Blood Urea Nitrogen 15 mg/dL (7-20) Creatinine 0.6 mg/dL (0.6-1.0) Estimated GFR (Cockcroft-Gault) 99.1 Glucose Level 132 mg/dL (70-99) Hemoglobin A1c 11.8 % (4.8-5.6) Calcium Level 8.7 mg/dL (8.5-10.1) Magnesium Level 2.1 mg/dL (1.8-2.4) Troponin I Quantitative 0.976 ng/mL (0-0.055) Triglycerides Level 192 mg/dL (0-150) Cholesterol Level 215 mg/dL (0-200) LDL Cholesterol, Calculated 139 mg/dL (0-100) VLDL Cholesterol, Calculated 38 mg/dL (0-40) Non-HDL Cholesterol Calculated 177 mg/dL (0-129) HDL Cholesterol 38 mg/dL (40-60) Cholesterol/HDL Ratio 5.0 Test 02/28/21 09:19 02/28/21 11:25 02/28/21 16:53 03/01/21 07:31 Troponin I Quantitative 0.826 ng/mL (0-0.055) Vitamin B12 Level 456 pg/mL (247-911) 25-Hydroxy Vitamin D Total 20.3 ng/mL (30-100) Glucose (Fingerstick) 189 mg/dL (70-99) 214 mg/dL (70-99) 211 mg/dL (70-99) Physical Exams HEENT: Neck Supple W Full Motion Chest: Symmetric Lungs: Clear to Auscultation Heart: RRR Abdomen: Soft N/T, Other (obese, peritoneal rash ) Extremities: Other (trace bilateral LE edema ) Neurology: alert, oriented, follow commands Assessment Assessment 1. Weakness, fatigue; COVID negative. CT head without acute findings 2. Diabetes, II; uncontrolled. A1C 11.8. as per IM 3. Hypertensive urgency; now controlled 4. Mild troponin elevation; peak 0.9. Most probably type II, demand ischemia s econdary to above. Echo with LVEF 50-55%. Distal septal wall through the apex appears hypokinetic. 5. Hyponatremia, hypokalemia 6. Hyperlipidemia 7. Elevated d-dimer; chest CTA without acute findings Recommendations ASA therapy. Add statin Will arranged outpatient ischemic evaluation and follow up in our office with Dr. Dtuta Supportive care. BEATRIZ DUTTA MD 03/01/21 1717: CARDIO Progress Notes Plan Plan Pt. seen and examined. Agree with above GRADING MACHINE OPERATOR note. Plan for outpt stress testing. Thanks TREVON SOLOMON APRN Mar 01, 2021 08:49 BEATRIZ DUTTA MD Mar 01, 2021 17:17
[2021-03-01 10:54] VITALS: BP 134/82
--- NOTE | 2021-03-01 13:51 | RAD ---
EXAM: CT CHEST WITHOUT CONTRAST HISTORY: Rib pain under left breast. Lower left ribs severe pain and hard tender nodules COMPARISON: CTA chest 02/28/2021 TECHNIQUE: Helical CT of the chest performed without contrast. Coronal and sagittal reformats were o btained. One or more of the following individualized dose reduction techniques were utilized for this examinat ion: 1. Automated exposure control 2. Adjustment of the mA and/or kV according to patient size 3. Use of iterative reconstruction technique. FINDINGS: Thyroid gland and thoracic inlet: The thyroid gland is normal. Heart and great vessels: Heart is normal in size. There are coronary artery calcifications. The thora cic aorta is normal in caliber. Mediastinum and clair: No lymphadenopathy. Lungs and pleura: There is no pleural effusion or pneumothorax. There is a 5 mm nodule in the medial right lower lobe (image 38, series 2). Additional 3 and 4 mm nodules in the right lower lobe (image 2 9, series 2). Mild atelectasis in the lingula. There is mild airway wall thickening. Chest wall and axillae: No axillary lymphadenopathy. Upper abdomen: There are surgical changes of gastric sleeve. Liver is decreased in attenuation. Gallb ladder surgically absent. Bones: No acute osseous abnormality. Specifically, no rib fracture visualized. IMPRESSION: 1. No rib fracture. 2. 3 nodules in the right lower lobe measuring up to 5 mm. If the patient is high risk, and optional twelve-month follow-up CT could be obtained to ensure stability. In a low risk patient, no follow-up is indicated. 3. Hepatic steatosis. Electronically signed by: Nelsy Marmolejo MD (03/01/2021 1:49 PM) [id number]
[2021-03-01 15:39] VITALS: BP 153/83
[2021-03-01] MEDS: GABAPENTIN 300 MG CAPSULE. PO SCH ×2 (16:59→21:08)
[2021-03-01] MEDS: traMADol 50 MG TABLET PO PRN (20:02)
[2021-03-01 20:11] VITALS: BP 120/73
[2021-03-01] MEDS ORDERED: DOCU100C28 PO (20:14)
[2021-03-01] MEDS ORDERED: ATORVASTATIN CALCIUM 20 MG TABLET PO SCH (21:00)
[2021-03-01] MEDS: DOCUSATE SODIUM 100 MG CAPSULE PO PRN (21:08)
[2021-03-01 22:59] VITALS: BP 129/75
--- NOTE | 2021-03-01 23:17 | PN ---
DATE: 03/01/2021 SUBJECTIVE: The patient is a 70-year-old female admitted with generalized weakness, poorly controlled diabetes, some chest discomfort. The patient feels a little bit stronger today and with less fatigue than she is. The patient overall has also been seen by Cardiology and they reviewed her case as well. VITAL SIGNS: Blood pressure did go up to 153/83 with a pulse of 110, respiratory rate 18, afebrile, oxygen saturation 98. LABORATORY DATA: The patient's CBC has been unremarkable. Her blood sugars are basically come down, but still in the low 200 range. Vitamin D level low. Otherwise, the rest of her labs show an elevated LDL of 140, triglycerides approximately 200. She had 2 troponins that have been elevated to 0.9 roughly. Hemoglobin A1c 11.8. Cardiology has reviewed the patient. OBJECTIVE: GENERAL: The patient is alert and oriented. LUNGS: Diminished but basically clear. CARDIOVASCULAR: Stable. ABDOMEN: Soft, nontender. EXTREMITIES: No clubbing, cyanosis, nor edema. NEUROLOGIC: Intact. IMPRESSION: Chest pain, poorly controlled diabetes, possible bladder infection. The patient will go ahead and continue to be monitored. Continue on her medications to bring down her blood sugar and Lipitor for her cholesterol review with Cardiology for possible further testing as indicated. Impression therefore, chest pain, high risk for angina, poorly controlled diabetes. PLAN: As above. ERMA/BRIAN DR: ERMA/lito TID: [id number]
[2021-03-02 05:44] VITALS: BP 132/78
[2021-03-02] MEDS: GABAPENTIN 300 MG CAPSULE. PO SCH (08:28)
[2021-03-02] MEDS: DOCUSATE SODIUM 100 MG CAPSULE PO PRN (08:28)
[2021-03-02] MEDS: amLODIPine BESYLATE 10 MG TABLET PO SCH (08:29)
[2021-03-02] MEDS: ASPIRIN ENTERIC COATED 81 MG TABLET.DR. PO SCH (08:29)
[2021-03-02 08:30] VITALS: BP 132/78
[2021-03-02] MEDS: LISINOPRIL 20 MG TABLET PO SCH (08:30)
[2021-03-02] MEDS: NYSTATIN TOPICAL POWDER 15GM BOTTLE. TP SCH (08:31)
[2021-03-02] MEDS: INSULIN LISPRO 300 UNITS/3 ML VIAL. SQ SCH (08:40)
[2021-03-02] MEDS: NYSTATIN/TRIAMCIN TOPICAL OINTMENT 15GM TUBE. TP SCH (08:43)
[2021-03-02] MEDS ORDERED: CHOLECALCIFEROL (VITAMIN D3) 1,000 UNIT TABLET PO SCH (09:00)
[2021-03-02] MEDS ORDERED: ASPI-889 PO (10:05)
[2021-03-02] MEDS ORDERED: INSU100I11 SQ (10:05)
[2021-03-02] MEDS ORDERED: CHOL10004 PO (10:05)
[2021-03-02] MEDS ORDERED: TRAM50TA PO (10:05)
[2021-03-02] MEDS ORDERED: GABA-586 PO (10:05)
[2021-03-02] MEDS ORDERED: AMLO-187 PO (10:05)
[2021-03-02] MEDS ORDERED: ATOR20TA58 PO (10:05)
--- NOTE | 2021-03-02 10:10 | DISCH ---
HOME HEALTH DISCHARGE/MEDS DISCHARGE INFORMATION: Discharge Date: Mar 02, 2021 Final Diagnosis: Problems Medical Problems: (1) Weakness Status: Acute chest pain with abnormal troponin levels Uncontrolled type 2 diabetes Hypertension Condition on Discharge: Stable CODE STATUS: Code Status: Full HOME HEALTH: Face to Face: I certify this patient is under my care and that I, or a nurse practitioner or physician's assistant women's tennis coach working with me, had a face to face encounter that meets the physician face to face encounter requirements with this patient on March 02, 2021. Medical Condition(s): DM, HTN Alf For: Admin/Educate Injections, Assess Cardiopulm Status, Assess & Educate Safety, Assess/Skilled Observatio, Medication Management, Pain Management Physical Therapy For: Evalulation/Treatment Occupational Therapy For: Evaluation/Treatment POST DISCHARGE ORDERS: Activity Instructions for Disc: No restrictions Weight Bearing Status after Di: No restrictions DIET AFTER DISCHARGE: ADA CHECKS AFTER DISCHARGE: Checks after discharge: Check blood press - daily, Check blood sugar, ac/hs, Weigh Yourself Daily TREATMENT/EQUIPMENT ORDERS: Discharge Respiratory Equipmen: CPAP CERTIFICATION STATEMENT: Certification Statement: Based on the above finding, I certify that this patient is confined to the home and needs intermittent mcfp care, physical therapy and/or speech therapy, or continues to need occupational therapy.~ This patient is under my care, and I have initiated the establishment of the plan of care.~ This patient will be followed by myself or a community physician who will periodically review the plan of care. DISCHARGE MEDICATIONS: Home Meds Active Scripts Nystatin (NYSTATIN) 15 Gm Powder, 1 KATELIN TP BID for yeast infection of skin for 7 Days, #1 BOTTLE 0 Refills apply to affected area(s) Prov:RHEA CHANG CENTRAL OFFICE ASSOCIATE 02/26/21 Reported Medications Docusate Sodium (DOCUSATE SODIUM) 100 Mg Capsule, 100 MG PO PRN BID PRN for CONSTIPATION, CAP 03/01/21 Diphenhydramine Hcl (BENADRYL) 25 Mg Capsule, 50 MG PO HS for SLEEP AID, CAP 02/28/21 Nadolol (CORGARD) 20 Mg Tablet, 20 TAB PO DAILY for HTN for 30 Days, #600 TAB 0 Refills 02/28/21 [place]-3 Acid Ethyl Esters ([place]-3 Acid Ethyl Esters) 1 Gm Capsule, 2 CAP PO BID for HEART HEALTH 12/03/17 Lisinopril (LISINOPRIL) 20 Mg Tablet, 20 MG PO DAILY for HYPERTENSION 12/03/17 MARSHAL CEE MD Mar 02, 2021 10:10
--- NOTE | 2021-03-02 10:57 | NUR ---
PT DISCHARGED AT APPROX 1100 VIA WHEEL CHAIR TO THE FRONT DOOR WHERE PTS DAUGHTER WAS HERE TO PICK THE PT UP. ALL DISCHARGE INSTRUCTIONS REVIEWED WITH THE PT AND HANDOUTS GIVEN ON MEDICATIONS AND GENERAL WEAKNESS. PT REMINDED TO F/U WITH DR CEE NEXT WEEK AND TO F/U WITH DR HAMILTON 03/16/21 FOR OUT PT STRESS TEST. ALL PREP INFO GIVEN FOR THE STRESS TEST AND PT STATES UNDERSTANDING. PT ALSO GIVEN [facility] INFORMATION WELL. PT DENIES PAIN OR DISCOMFORT THIS SHIFT AND EDUCATED ON TREATMENT OF YEAST UNDER PANIS AND LEFT BREAST.
--- NOTE | 2021-03-18 14:48 | DS ---
DATE OF DISCHARGE: 03/02/2021 HOSPITAL COURSE: A 70-year-old female came in through the Emergency Room with poorly controlled diabetes, generalized weakness, difficulty even moving about. The patient had progressive type of weakness since 29, which has become increasingly progressive, to the point where she was pretty much bedridden. The patient notes a long history of TIAs, headaches, heart attacks, sleep apnea on CPAP, cholecystectomy and so forth and history of breast cancer, cervical cancer and the like. The patient was admitted initially for chest pain with elevated troponin levels and generalized weakness, possibly related to her neuropathy or possibly even myasthenia gravis, although it appeared that once we got her sugars under better control and she was better hydrated, the patient made excellent progress during the rest of her hospitalization. The patient apparently had run out of insulin and her sugars were too high, as high as approximately 430. The patient otherwise made good progress as we adjusted her insulin and cardiac enzymes were negative. The patient made good progress during the rest of her hospitalization, actually was able to get out of bed and showed some overall greatness of her strength. The patient had a CTA because of an elevated D-dimer and she made good progress there, that was negative, hepatic steatosis was noted. Because of her weakness, Head CT was performed, which showed no intracranial abnormality. CT of the chest itself because she kept complaining of rib pain showed 3 nodules in the right lower lobe measuring up to 5 mm, which should be followed up as an outpatient. Otherwise, as noted, the patient made good progress and she was discharged home. See MRAD. FINAL DIAGNOSES: Includes that of chest pain with high probability of previous heart disease and poorly controlled diabetes, severe hyperglycemia without diabetic ketoacidosis, generalized weakness, severe polyarthralgia, diabetic neuropathy, noncompliance, hypertensive urgency, morbid obesity, moderate protein malnutrition, diabetic neuropathy. She will be discharged home, followed up as an outpatient and continued to be emphasized on controlling her blood sugar. Her ejection fraction here was 50-55%. ERMA/JERDA/CARISSA DR: Pa TID: [id number]
== END 2021-03-02 11:03 | disposition home health service (06) | DRG 637 ==
LOC: ER 18:53 → 1 SOUTH 22:32
PROVIDERS: ADMIT Family Medicine; ATTEND Family Medicine
DX: E11.00 Type 2 diabetes mellitus with hyperosmolarity without nonketotic hyperglycemic-hyperosmolar coma (NKHHC) (principal); R53.2 Functional quadriplegia; E87.1 Hypo-osmolality and hyponatremia; E44.0 Moderate protein-calorie malnutrition; I24.8 Other forms of acute ischemic heart disease; L03.315 Cellulitis of perineum; G70.00 Myasthenia gravis without (acute) exacerbation; E11.40 Type 2 diabetes mellitus with diabetic neuropathy, unspecified; E11.65 Type 2 diabetes mellitus with hyperglycemia; N30.90 Cystitis, unspecified without hematuria; B37.2 Candidiasis of skin and nail; E66.01 Morbid (severe) obesity due to excess calories; E78.5 Hyperlipidemia, unspecified; E87.6 Hypokalemia; I10 Essential (primary) hypertension; I16.0 Hypertensive urgency; Z20.822 Contact with and (suspected) exposure to COVID-19; Z81.8 Family history of other mental and behavioral disorders; Z82.49 Family history of ischemic heart disease and other diseases of the circulatory system; Z83.3 Family history of diabetes mellitus; Z85.3 Personal history of malignant neoplasm of breast; Z85.41 Personal history of malignant neoplasm of cervix uteri; I25.10 Atherosclerotic heart disease of native coronary artery without angina pectoris; Z86.73 Personal history of transient ischemic attack (TIA), and cerebral infarction without residual deficits; Z90.49 Acquired absence of other specified parts of digestive tract; Z90.710 Acquired absence of both cervix and uterus; F32.9 Major depressive disorder, single episode, unspecified; F41.9 Anxiety disorder, unspecified; K76.0 Fatty (change of) liver, not elsewhere classified; G47.33 Obstructive sleep apnea (adult) (pediatric); K21.9 Gastro-esophageal reflux disease without esophagitis
CPT/HCPCS: 36415; 70450; 71045; 71250; 71275; 80048; 80061; 80076; 80307; 81001; 82306; 82550; 82607; 82947; 83036; 83735; 83880; 84443; 84484; 85025; 85379; 85610; 85730; 87426; 87804; 93005; 93306; 96361; 96365; 96366; 96375; 96376; J1815; J2060; J2405; J7120; Q9967; U0003; 97110; 97530; 97535; 99285-25

== ENCOUNTER 2021-06-08 17:14 | Emergency (ER) | payer OTHER, MEDICAID ==
[~2021-06-08] VITALS: Ht 160 cm; Wt 91.9 kg
[~2021-06-08 17:14] MED LIST changes: +AMLO-187 PO; +ASPI-889 PO; +ATOR20TA58 PO; +CHOL10004 PO; +DIPH25CA58 PO; +DOCU100C28 PO; +GABA-586 PO; +INSU100I11 SQ; +NADO20TA12 PO; +TRAM50TA PO
[2021-06-08 17:28] VITALS: BP 148/57
[2021-06-08 17:59] LABS: CLARITY,URINE CLOUDY; COLOR,URINE YELLOW
[2021-06-08 18:00] LABS: BACTERIA,URINE MANY /HPF (0-FEW); BILIRUBIN,URINE NEG (NEG); GLUCOSE,URINE >=1000 mg/dL (NEG); NITRITE,URINE POS (NEG); SQUAMOUS EPITHELIAL CELL,UR MOD /LPF; UROBILINOGEN,URINE 0.2 mg/dL (0.2 mg/dL); WBC,URINE >40 /HPF (0-4); YEAST,URINE PRESENT /HPF
[2021-06-08] MEDS ORDERED: CEPHALEXIN 250 MG CAPSULE PO ONE (18:30)
[2021-06-08] MEDS ORDERED: ONDANSETRON ODT 4 MG TAB.RAPDIS PO ONE (18:30)
[2021-06-08] MEDS ORDERED: PHENAZOPYRIDINE 200 MG TABLET. PO ONE (18:30)
[2021-06-08] MEDS ORDERED: PHEN-318 PO (18:33)
[2021-06-08] MEDS ORDERED: ONDA4TAB12 PO (18:33)
[2021-06-08] MEDS ORDERED: FLUC200T PO (18:33)
[2021-06-08] MEDS ORDERED: CEPH500C PO (18:33)
--- NOTE | 2021-06-08 18:33 | PHYS DOC ---
Past History Past Medical History: Cancer, Diabetes, Hypertension, [place], Stroke, Other Additional Past Medical Histor: eye implants after catarract removed Past Surgical History: Appendectomy, Cholecystectomy, Hysterectomy, Other Additional Past Surgical Histo: mastectectomy-lt; cervical cancer; polylps colon Alcohol Use: Occasionally Drug Use: None General Adult EDM: Chief Complaint: PAIN ON URINATION HPI: HPI: Patient is a [age] year old [sex] who presents with [] Review of Systems: Review of Systems: Constitutional: Denies fever or chills Eyes: Denies redness or eye pain HENT: Denies nasal congestion or sore throat Respiratory: Denies cough or shortness of breath Cardiovascular: Denies chest pain or palpitations GI: Denies abdominal pain, nausea, or vomiting : Denies dysuria or hematuria Musculoskeletal: Denies back pain or joint pain Integument: Denies rash or skin lesions Neurologic: Denies headache, focal weakness or sensory changes Complete systems were reviewed and found to be within normal limits, except as documented in this note. Allergies: Allergies: Allergies Coded Allergies Type Severity Reaction Last Updated Verified Sulfa (Sulfonamide Antibiotics) Allergy Intermediate 12/03/17 Yes codeine Allergy Intermediate 12/03/17 Yes adhesive Allergy Mild Rash 12/04/17 Yes latex Allergy Mild Rash 12/04/17 Yes acetaminophen Adverse Reaction Intermediate 12/03/17 Yes Physical Exam: PE: Constitutional: Well developed, well nourished, no acute distress, non-toxic appearance HENT: Normocephalic, atraumatic Eyes: PERRL, EOMI, conjunctiva normal, no discharge Neck: Normal range of motion, no tenderness, supple Lungs & Thorax: No respiratory distress, equal chest rise and fall Abdomen: Soft, no tenderness Skin: Warm, dry, no erythema, no rash Back: No tenderness, no CVA tenderness Extremities: No tenderness, ROM intact, no edema Neurologic: Alert and oriented X 3, normal motor function, normal sensory function, no focal deficits noted Psychologic: Affect normal, judgment normal Current Patient Data: Labs: Laboratory Tests Test 06/08/21 17:32 Urine Collection Type Unknown Urine Color Yellow Urine Clarity Cloudy Urine pH 6.5 Urine Specific [place] 1.025 Urine Protein 100 mg/dl (NEG-TRACE) Urine Glucose (UA) >=1000 mg/dL (NEG) Urine Ketones (Stick) 40 mg/dL (NEG) Urine Blood Trace (NEG) Urine Nitrite Pos (NEG) Urine Bilirubin Neg (NEG) Urine Urobilinogen Dipstick 0.2 mg/dL (0.2 mg/dL) Urine Leukocyte Esterase Trace (NEG) Urine RBC 1-2 /HPF (0-2) Urine WBC >40 /HPF (0-4) Urine Squamous Epithelial Cells Mod /LPF Urine Bacteria Many /HPF (0-FEW) Urine Yeast Present /HPF Vital Signs: Vital Signs Date Time Temp Pulse Resp B/P (MAP) Pulse Ox O2 Delivery O2 Flow Rate FiO2 06/08/21 17:28 98.2 65 16 148/57 (87) 100 Room Air EKG: EKG: [] Radiology/Procedures: Radiology/Procedures: [] Heart Score: C/O Chest Pain: N/A Course & Med Decision Making: Course & Med Decision Making Pertinent Lab studies reviewed. (See chart for details) Patient stable for discharge with outpatient follow-up with PCP. Discussed findings and plan with patient, who acknowledges understanding and agreement. COVID-19 CRITERIA: The patient was evaluated during the global COVID-19 pandemic, and that diagnosis was suspected/considered upon their initial presentation. Their evaluation, treatment and testing was consistent with current guidelines for patients who present with complaints or symptoms that may be related to COVID-19. Suzanne Disclaimer: Suzanne Disclaimer: This electronic medical record was generated, in whole or in part, using a voice recognition dictation system. Departure Departure: Impression: Primary Impression: Urinary tract infection Qualified Codes: N30.01 - Acute cystitis with hematuria Additional Impressions: Yeast cystitis Nausea Suspected 2019 novel coronavirus infection Disposition: HOME / SELF CARE / HOMELESS Condition: STABLE Referrals: MARSHAL CEE MD (PCP) Patient Instructions: Candidal Vulvovaginitis, [id number], Nausea, Adult, [id number], Urinary Tract Infection, [id number] Additional Instructions: You have been tested for or diagnosed with COVID-19. It is an infection caused by a new type of coronavirus. COVID-19 will cause cold-like or mild flu symptoms in most. It can cause more severe symptoms like problems breathing in some. There is no treatment for COVID-19. The body will clear the infection over time. Self-care will help to ease discomfort. Steps to Take: Self-Care Rest as needed. Healthy habits may help you feel better. Steps include: Choose healthy foods including fruits and vegetables. Drink water throughout the day. Get plenty of sleep each night. If you smoke, try to quit. It may ease breathing. Avoid alcohol. Keep Others Healthy The virus can spread to others. Droplets are released every time you sneeze or c ough. The droplets can get into the mouth, nose, or eyes of people near you and lead to infection. To lower the chances of spreading COVID-19 to others: Stay at home until your doctor has said it is safe to leave. If you tested positive this will mean staying isolated until both of the following are true: At least 7 days have passed since the start of illness. You are free of fever for at least 72 hours without the use of medicine. During this time: - Avoid public areas, events, or transportation. Do not return to work or school until your doctor has said it is safe to do so. - Call ahead if you need to go to a medical center. Let them know you may have COVID-19. It will help them guide you where to go. They may also ask you to wear a facemask when you come to the office. - If you call for emergency medical services, let them know you may have COVID- 19. While at home: - Try to avoid close contact with others. Stay about 6 feet away. - If possible, spend most of your time in a separate room from others. - Use a face mask if you will be in close contact with others such as sharing a room or vehicle. - Have someone wipe down common surfaces in the home. Use household live in housekeeper every day on areas like doorknobs, counters, or sinks. - Cough or sneeze into a tissue. Throw the tissue away right after use. If a tissue is not available, cough or sneeze into your elbow. - Wash your hands often. Wash them after sneezing or coughing. Use soap and water and wash for at least 20 seconds. Alcohol based hand rack cleaner can be used if soap and water is not available. - Do not prepare food for others. Avoid sharing personal items like forks, spoons, or toothbrushes. - Avoid close contact with pets while you are sick. There is no evidence of the virus passing to pets. This is a safety step until more is known about this virus. Isolation can be frustrating. Social interaction can help. Keep in touch with friends and family through phone and tech options. You can still interact with others in your home, just keep a safe distance of about 6 feet. Follow-up: Your doctors office will check in with you to see if there are any changes in your health. You may be asked to keep track of symptoms to share with them. They will also let you know when you are clear to be in public again. Problems to Look Out For: Contact your doctor if your recovery is not going as you expect. Get emergency care if you have problems such as: - Trouble breathing - Nonstop chest pain or pressure - Changes in awareness, confusion, or problems waking - Lips or face have bluish color - Worsening of symptoms If you think you have an emergency, call for emergency medical services right away. As taken from [facility] [place] Health Scripts Fluconazole (DIFLUCAN) 200 Mg Tablet 1 TAB PO DAILY for yeast infection, #2 TAB Take first tab now, then second tab upon completion of your antibiotics- Keflex Prov: RHEA PHILLIP DO 06/08/21 Phenazopyridine Hcl (PYRIDIUM) 200 Mg Tablet 200 MG PO TID for urinary tract infection for 2 Days, #6 TAB Prov: RHEA PHILLIP DO 06/08/21 Cephalexin (KEFLEX) 500 Mg Capsule 1 CAP PO TID for UTI for 7 Days, #21 CAP Prov: RHEA PHILLIP DO 06/08/21 Ondansetron (ONDANSETRON ODT) 4 Mg Tab.rapdis 1 TAB PO PRN Q6-8HRS PRN for NAUSEA, #16 TAB Prov: RHEA PHILLIP DO 06/08/21 RHEA PHILLIP DO Jun 08, 2021 18:33
--- NOTE | 2021-06-08 18:58 | RAD ---
Single view chest dated 06/08/2021 6:54 PM: COMPARISON: 03/01/2021 Clinical Indication: Cough. Findings: Single upright portable exam of the chest was performed. Heart and mediastinal contours are within no rmal limits. Mild elevation of right hemidiaphragm. No consolidation or pleural effusion. No pneumoth orax. IMPRESSION: No acute radiographic abnormality. Electronically signed by: Uriah Ceja MD (06/08/2021 6:55 PM) EVIE
== END 2021-06-08 19:19 | disposition home or self-care (01) ==
LOC: ER 17:14
DX: U07.1 COVID-19 (principal); N39.0 Urinary tract infection, site not specified
CPT/HCPCS: 71045; 81001; 87086; 99284; C9803; Q0162; U0003; 87077; 87186

== ENCOUNTER 2021-06-13 15:37 | Inpatient (IN) | payer OTHER, MEDICAID ==
[~2021-06-13] VITALS: Ht 160 cm; Wt 89.0 kg
[~2021-06-13 15:37] MED LIST changes: +CEPH500C PO; +FLUC200T PO; +ONDA4TAB12 PO
--- NOTE | 2021-06-13 15:52 | PHYS DOC ---
Past History Past Medical History: Cancer, Diabetes, Hypertension, ND, Stroke, UTI, Other Additional Past Medical Histor: COVID+ 05/2021 (EDER ABREU) Past Surgical History: Appendectomy, Cholecystectomy, Hysterectomy, Other Additional Past Surgical Histo: mastectectomy-lt,cervical cancer,polylps colon, eye implants s/p catarract (EDER ABREU) Alcohol Use: Occasionally Drug Use: None (EDER ABREU) General Adult EDM: Chief Complaint: WEAKNESS/GENERALIZED HPI: HPI: Patient is a 71 year old female with known COVID-19 positive test who presents via EMS with multiple complaints. She states she has felt increasingly weak, experience shortness of breath and had diarrhea since her last visit to the emergency department on 06/08/2021. Today, she called EMS because she fell and hit her back on a dresser, then landed on her right hip. Additionally, she does not believe her UTI is improving. She states that the intertriginous rash "got better for a little while," but is now returned. Patient does not check her blood sugar at home because her medical supplies were inadvertently left in the rain 4 months ago. Patient states she uses CPAP to sleep at night, but has used it during the day when she feels short of breath. She does not use any oxygen supplement at home regularly. Patient denies fever, chills, chest pain, palpitations, sputum production, abdominal pain, vomiting. (EDER ABREU) Review of Systems: Review of Systems: Constitutional: See HPI Eyes: Denies change in visual acuity or visual field deficits HENT: Denies nasal congestion or sore throat Respiratory: See HPI Cardiovascular: See HPI GI: See HPI : See HPI Musculoskeletal: See HPI Integument: See HPI Neurologic: Denies headache, focal weakness or sensory changes (EDER ABREU) Allergies: Allergies: Allergies Coded Allergies Type Severity Reaction Last Updated Verified Sulfa (Sulfonamide Antibiotics) Allergy Intermediate 12/03/17 Yes codeine Allergy Intermediate 12/03/17 Yes adhesive Allergy Mild Rash 12/04/17 Yes latex Allergy Mild Rash 12/04/17 Yes acetaminophen Adverse Reaction Intermediate 12/03/17 Yes (EDER ABREU) Physical Exam: PE: Constitutional: Obese, disheveled, no acute distress, chronically ill-appearing. Neck: Normal range of motion, no step-offs, no tenderness. Cardiovascular: Heart rate regular rhythm, no murmur. Lungs & Thorax: Bilateral breath sounds diminished but clear to auscultation. Abdomen: Protuberant abdomen, bowel sounds normal, soft, no tenderness, no masses, no pulsatile masses. Skin: Intertriginous folds erythematous and moist, consistent with fungal infection. Back: No step-offs, no midline tenderness, paraspinal tenderness noted midlow thoracic region. Extremities: Bilateral hip tenderness to palpation R>L, active range of motion intact bilaterally but painful R>L, distal pulses intact, cap refill less than 2 seconds, gross sensation intact. Neurologic: Alert and oriented x4, strength 4/5 in extremities x4, no focal def icits noted. (EDER ABREU) Current Patient Data: Labs: Laboratory Tests Test 06/13/21 16:35 White Blood Count 7.3 x10^3/uL (4.0-11.0) Red Blood Count 4.27 x10^6/uL (3.50-5.40) Hemoglobin 12.9 g/dL (12.0-15.5) Hematocrit 39.6 % (36.0-47.0) Mean Corpuscular Volume 93 fL (79-100) Mean Corpuscular Hemoglobin 30 pg (25-35) Mean Corpuscular Hemoglobin Concent 33 g/dL (31-37) Red Cell Distribution Width 13.5 % (11.5-14.5) Platelet Count 229 x10^3/uL (140-400) Neutrophils (%) (Auto) 73 % (31-73) Lymphocytes (%) (Auto) 20 % (24-48) Monocytes (%) (Auto) 7 % (0-9) Eosinophils (%) (Auto) 0 % (0-3) Basophils (%) (Auto) 0 % (0-3) Neutrophils # (Auto) 5.3 x10^3uL (1.8-7.7) Lymphocytes # (Auto) 1.4 x10^3/uL (1.0-4.8) Monocytes # (Auto) 0.5 x10^3/uL (0.0-1.1) Eosinophils # (Auto) 0.0 x10^3/uL (0.0-0.7) Basophils # (Auto) 0.0 x10^3/uL (0.0-0.2) Sodium Level 131 mmol/L (136-145) Potassium Level 3.6 mmol/L (3.5-5.1) Chloride Level 98 mmol/L (98-107) Carbon Dioxide Level 19 mmol/L (21-32) Anion Gap 14 (6-14) Blood Urea Nitrogen 25 mg/dL (7-20) Creatinine 1.2 mg/dL (0.6-1.0) Estimated GFR (Cockcroft-Gault) 44.4 BUN/Creatinine Ratio 21 (6-20) Glucose Level 347 mg/dL (70-99) Calcium Level 8.2 mg/dL (8.5-10.1) Magnesium Level 2.3 mg/dL (1.8-2.4) Total Bilirubin 0.4 mg/dL (0.2-1.0) Aspartate Amino Transf (AST/SGOT) 35 U/L (15-37) Alanine Aminotransferase (ALT/SGPT) 23 U/L (14-59) Alkaline Phosphatase 52 U/L (46-116) Total Protein 7.0 g/dL (6.4-8.2) Albumin 2.2 g/dL (3.4-5.0) Albumin/Globulin Ratio 0.5 (1.0-1.7) Lipase 92 U/L (73-393) Vital Signs: Vital Signs Date Time Temp Pulse Resp B/P (MAP) Pulse Ox O2 Delivery O2 Flow Rate FiO2 06/13/21 15:50 98.5 65 16 142/62 (88) 99 Room Air (EDER ABREU) EKG: EKG: EKG Interpreted by Dr. Olsen at 1716: Regular rate and rhythm 58 bpm with no ectopic beats. No concerning ST-T wave changes. Regular QR interval. (EDER ABREU) Radiology/Procedures: Radiology/Procedures: EXAM: Chest, single view; thoracic spine, 3 views. HISTORY: Weakness. COMPARISON: 06/08/2021 FINDINGS: And frontal view of the chest and 3 views of the thoracic spine are obtained. There is multifocal interstitial and alveolar infiltrate. No pleural effusion or pneumothorax is seen. There are clips overlying the left axilla or left breast. There is endplate remodeling and anterior spurring at the mid and lower cervical levels. There is no fracture. There is no listhesis. There are anastomotic sutures within the left upper quadrant of the abdomen. IMPRESSION: 1. Bilateral multifocal pulmonary infiltrate. Follow-up to confirm resolution. 2. No acute osseous finding. Electronically signed by: Lynette Hughes MD (06/13/2021 4:52 PM) [id number] EXAM: Pelvis and bilateral hips, 4 views. HISTORY: Fall. COMPARISON: None. FINDINGS: For evaluation of the pelvis and frog-leg views of both hips are obtained. There is no acute fracture, dislocation or subluxation. There is mild degenerative spurring involving the acetabula. The femoral heads are normal in position and configuration. There is degenerative change involving the visualized lower lumbar spine. IMPRESSION: 1. Mild bilateral hip osteoarthritis. 2. No acute osseous finding. Electronically signed by: Lynette Hughes MD (06/13/2021 4:53 PM) [id number] (EDER ABREU) Heart Score: C/O Chest Pain: No (EDER ABREU) Course & Med Decision Making: Course & Med Decision Making Pertinent Labs and Imaging studies reviewed. (See chart for details) Patient is a 71-year-old female well-known to the department. She has multiple complaints related to Covid and her known UTI. Patient appears to have muscle strength and can stand and lift herself up from the toilet, however cannot ambulate. Both the nursing staff and myself encouraged her to ambulate independently, but she states that she is unable. She is experiencing worsening of symptoms secondary to conditions diagnosed on her last visit to the emergency department. At this point, patient has unreliable care at home and is unable to care for herself, therefore requiring higher level of care than is obtainable at home. She is a fall risk as well as in need of possible PT/OT. Dr. Sutton, patient's PCP, contacted for admission for weakness and ongoing UTI. He [facility]. (EDER ABREU) Course & Med Decision Making I was the Attending physician on the above date of service of this patient. This patient was evaluated, examined, treated, and dispositioned from the emergency department by the mid-level practitioner. Patient unable to safely ambulate and care for self at home. Does not have regular care at home to assist through personal deficits. Unsafe to disposition home. Electronically signed, Simone Langford DO (SIMONE LANGFORD DO) Suzanne Disclaimer: Suzanne Disclaimer: This electronic medical record was generated, in whole or in part, using a voice recognition dictation system. (EDER ABREU) Departure Departure: Impression: Primary Impression: Weakness generalized Additional Impressions: Jocelyn infection of flexural skin UTI (urinary tract infection) due to Enterococcus Pneumonia due to COVID-19 virus Uncontrolled diabetes mellitus with hyperglycemia Qualified Codes: E11.65 - Type 2 diabetes mellitus with hyperglycemia Disposition: ADMITTED INPATIENT Admitting Physician: Marshal Cee (EDER ABREU) Condition: GUARDED Referrals: MARSHAL CEE MD (PCP) EDER ABREU Jun 13, 2021 15:52 SIMONE LANGFORD DO Jun 14, 2021 00:07
[2021-06-13] MEDS ORDERED: IV NORMAL SALINE 1,000ML 1,000 ML IV ONE (16:00)
--- NOTE | 2021-06-13 16:54 | RAD ---
EXAM: Chest, single view; thoracic spine, 3 views. HISTORY: Weakness. COMPARISON: 06/08/2021 FINDINGS: And frontal view of the chest and 3 views of the thoracic spine are obtained. There is mult ifocal interstitial and alveolar infiltrate. No pleural effusion or pneumothorax is seen. There are c lips overlying the left axilla or left breast. There is endplate remodeling and anterior spurring at the mid and lower cervical levels. There is no fracture. There is no listhesis. There are anastomotic sutures within the left upper quadrant of the abdomen. IMPRESSION: 1. Bilateral multifocal pulmonary infiltrate. Follow-up to confirm resolution. 2. No acute osseous finding. Electronically signed by: Lynette Hughes MD (06/13/2021 4:52 PM) [id number]
--- NOTE | 2021-06-13 16:55 | RAD ---
EXAM: Pelvis and bilateral hips, 4 views. HISTORY: Fall. COMPARISON: None. FINDINGS: For evaluation of the pelvis and frog-leg views of both hips are obtained. There is no acut e fracture, dislocation or subluxation. There is mild degenerative spurring involving the acetabula. The femoral heads are normal in position and configuration. There is degenerative change involving th e visualized lower lumbar spine. IMPRESSION: 1. Mild bilateral hip osteoarthritis. 2. No acute osseous finding. Electronically signed by: Lynette Hughes MD (06/13/2021 4:53 PM) [id number]
--- NOTE | 2021-06-13 16:57 | EKG ---
[address] [address] Test Date: 2021-06-13 Test Time: 16:08:55 Pat Name: FRANK GOTTI Department: Room: Gender: F Senior Writer: NADEEN : 1950 Requested By: EDER ABREU Order Number: [id number] Reading MD: Claude Dutta MD Measurements Intervals [place] Rate: 58 P: 41 AK: 190 QRS: 9 QRSD: 92 T: 16 QT: 418 QTc: 414 Interpretive Statements SINUS RHYTHM Electronically Signed On 06-19-2021 15:03:13 [employer]ES [employer]CH[employer]ISING REPRESENTATIVE by Claude Dutta MD
[2021-06-13 17:05] LABS: BASO % 0 % (0-3); EOS % 0 % (0-3); HEMATOCRIT 39.6 % (36.0-47.0); HEMOGLOBIN 12.9 g/dL (12.0-15.5); LYMPH # 1.4 x10^3/uL (1.0-4.8); LYMPH % 20 % (24-48); MEAN CORPUSCULAR HEMOGLOBIN 30 pg (25-35); MEAN CORPUSCULAR HGB CONC 33 g/dL (31-37); MEAN CORPUSCULAR VOLUME 93 fL (79-100); MONO # 0.5 x10^3/uL (0.0-1.1); MONO % 7 % (0-9); NEUT # 5.3 x10^3uL (1.8-7.7); NEUT % 73 % (31-73); PLATELET COUNT 229 x10^3/uL (140-400); RED BLOOD COUNT 4.27 x10^6/uL (3.50-5.40); RED CELL DISTRIBUTION WIDTH 13.5 % (11.5-14.5); WHITE BLOOD COUNT 7.3 x10^3/uL (4.0-11.0)
[2021-06-13 17:16] LABS: CALCIUM 8.2 mg/dL (8.5-10.1); CREATININE 1.2 mg/dL (0.6-1.0); GFR 44.4; POTASSIUM 3.6 mmol/L (3.5-5.1)
[2021-06-13 17:22] LABS: ALBUMIN 2.2 g/dL (3.4-5.0); ALBUMIN/GLOBULIN RATIO 0.5 (1.0-1.7); MAGNESIUM 2.3 mg/dL (1.8-2.4); TOTAL BILIRUBIN 0.4 mg/dL (0.2-1.0)
[2021-06-13] MEDS ORDERED: ONDANSETRON ODT 4 MG TAB.RAPDIS PO PRN (20:30)
[2021-06-13] MEDS ORDERED: traMADol 50 MG TABLET PO PRN (20:30)
[2021-06-13] MEDS ORDERED: NON FORMULARY ITEM (Cephalexin (Keflex) 1 CAP) PO SCH (21:00)
[2021-06-13] MEDS: GABAPENTIN 300 MG CAPSULE. PO SCH (21:52)
[2021-06-13] MEDS: diphenhydrAMINE HCL 25 MG CAPSULE PO SCH (21:52)
[2021-06-13] MEDS: ATORVASTATIN CALCIUM 20 MG TABLET PO SCH (21:52)
[2021-06-13] MEDS: PHENAZOPYRIDINE 200 MG TABLET. PO SCH (21:52)
[2021-06-13] MEDS: ENOXAPARIN 40 MG/0.4 ML SYRINGE. SQ SCH (21:53)
[2021-06-13 21:54] VITALS: BP 144/81
[2021-06-13] MEDS: AZITHROMYCIN 250 MG TABLET. PO SCH (21:54)
[2021-06-13] MEDS: NYSTATIN TOPICAL POWDER 15GM BOTTLE. TP SCH (21:54)
[2021-06-14 06:13] VITALS: BP 105/63
[2021-06-14] MEDS ORDERED: DEXTROSE 50% 25 GM / 50ML DISP.SYRIN. IV PRN (06:15)
[2021-06-14] MEDS ORDERED: INSULIN LISPRO 300 UNITS/3 ML VIAL. SQ SCH (08:00)
[2021-06-14] MEDS: PHENAZOPYRIDINE 200 MG TABLET. PO SCH ×3 (08:17→21:14)
[2021-06-14] MEDS: ASPIRIN ENTERIC COATED 81 MG TABLET.DR. PO SCH (08:17)
[2021-06-14] MEDS: METOPROLOL TART IMMED RELEASE 25 MG TABLET. PO SCH ×2 (08:17→21:14)
[2021-06-14] MEDS: LACTOBACILLUS RHAMNOSUS GG 1 CAPSULE. PO SCH ×2 (08:17→21:14)
[2021-06-14] MEDS: CHOLECALCIFEROL (VITAMIN D3) 1,000 UNIT TABLET PO SCH (08:17)
[2021-06-14] MEDS: GABAPENTIN 300 MG CAPSULE. PO SCH ×2 (08:17→21:14)
[2021-06-14] MEDS: AZITHROMYCIN 250 MG TABLET. PO SCH (08:17)
[2021-06-14] MEDS: LISINOPRIL 20 MG TABLET PO SCH (08:18)
[2021-06-14] MEDS: amLODIPine BESYLATE 10 MG TABLET PO SCH (08:18)
[2021-06-14] MEDS: NYSTATIN TOPICAL POWDER 15GM BOTTLE. TP SCH ×2 (08:19→21:14)
[2021-06-14] MEDS ORDERED: NON FORMULARY ITEM (Fluconazole (Diflucan) 1 TAB) PO SCH (09:00)
[2021-06-14] MEDS ORDERED: NADOLOL PO SCH (09:00)
[2021-06-14 10:51] VITALS: BP 145/65
[2021-06-14] MEDS: INSULIN LISPRO 300 UNITS/3 ML VIAL. SQ SCH ×3 (10:58→17:47)
[2021-06-14 16:02] VITALS: BP 104/52
--- NOTE | 2021-06-14 16:44 | HP ---
DATE OF SERVICE: 06/14/2021 ADMIT DATE: 06/13/2021 HISTORY OF PRESENT ILLNESS: This is a 71-year-old female who came in through the Emergency Room. The patient had apparently known COVID test via EMS. The patient is increasingly weak, experiencing shortness of breath. Chest x-ray showed a pneumonic process. She is also having some diarrhea, general lethargy; elevated blood sugars, out of control. The patient also notes she had a urinary tract infection, but overall multiple factors going into this patient's situation for admission including the pneumonia, urinary tract infection, diarrhea, general lethargy and generalized weakness. PAST MEDICAL AND SURGICAL HISTORY: Her history includes that of TIA, headaches, heart attacks, sleep apnea, abdominal surgery with hernia repair, cholecystectomy, appendectomy, left lumpectomy, bilateral breast reduction, hysterectomy, urinary tract infection, right rotator cuff repair along with marked degenerative disease, depression. Tetanus, influenza, pneumococcal all up to date. She has also had gastric sleeve surgery and is a diabetic. FAMILY HISTORY: Positive for diabetes, depression and abdominal aortic aneurysm. ALLERGIES: SULFA, ACETAMINOPHEN, ADHESIVE, CODEINE AND LATEX. SOCIAL HISTORY: No smoking, alcohol or drug use. She is a full code. HOME MEDICATIONS: Include the following, including that of Benadryl 50 mg at bedtime, Keflex 500, Diflucan 200 mg daily for a week, atorvastatin 20 mg, omega 3, nadolol 20 mg a day, Norvasc 10, lisinopril 20, aspirin 81, tramadol 50, gabapentin 300 b.i.d., docusate sodium, Zofran p.r.n. 4 mg sublingual, insulin Humalog t.i.d. with meals, nystatin, Pyridium 200 mg t.i.d. for 2 days and vitamin D3. REVIEW OF SYSTEMS: The patient has general lethargy. She denies chest pain. Does have shortness of breath, cough. Does have some diarrhea, diffuse nausea, but no vomiting. Poor appetite and markedly depressed. PHYSICAL EXAMINATION: GENERAL: This is an ill-appearing white female, markedly depressed. The patient is otherwise alert, depressed affect noted. VITAL SIGNS: Blood pressure 142/62, respiratory rate 18, pulse 80-90, afebrile, room air 94. HEENT: The patient's head was atraumatic, normocephalic. Eyes: PERRLA without jaundice. The mouth and throat, poor dentition. NECK: Supple. LUNGS: With diminished crackles noted in the bases. CARDIOVASCULAR: Regular sinus rhythm. ABDOMEN: Soft, markedly protuberant. No rebounding, no guarding. Positive bowel sounds, hyperactive, if anything. Stool Hemoccult negative. EXTREMITIES: Without clubbing, cyanosis, nor edema. NEUROLOGIC: Alert, depressed as noted, but cranial nerves 2-12 grossly intact. Moving all extremities well. No signs of any acute loss there. LABORATORY DATA: Sodium 131, potassium 3.6, BUN and creatinine 25 and 1.2, blood sugar 347. White count 7.3, hemoglobin and hematocrit 12 and 39. Previous history of COVID-19 ____. We will repeat those and see how we stand on that, will be treated as a COVID patient. IMPRESSION: Community-acquired pneumonia post that of a COVID-19 infection; type 2 diabetes, poorly controlled; morbid obesity; severe protein malnutrition; chronic kidney disease, stage 3A. PLAN: The patient will continue to be monitored. IV antibiotic therapy. Start her on antidepressant therapy and make further evaluation on her as indicated. ERMA/KARRI/EZE DR: Pa TID: [id number]
[2021-06-14 19:00] VITALS: BP 117/73
[2021-06-14] MEDS ORDERED: INSULIN GLARGINE SYRINGE. SQ SCH (21:00)
[2021-06-14] MEDS: diphenhydrAMINE HCL 25 MG CAPSULE PO SCH (21:13)
[2021-06-14] MEDS: ENOXAPARIN 40 MG/0.4 ML SYRINGE. SQ SCH (21:14)
[2021-06-14] MEDS: ATORVASTATIN CALCIUM 20 MG TABLET PO SCH (21:14)
[2021-06-14] MEDS: DESIPRAMINE HCL 25 MG TABLET PO SCH (21:16)
[2021-06-14] MEDS: INSULIN GLARGINE SYRINGE. SQ SCH (21:17)
[2021-06-14 23:00] VITALS: BP 120/75
[2021-06-15] VITALS (7 sets, daily range): BP systolic 98–137; BP diastolic 64–78
[2021-06-15 06:59] LABS: CALCIUM 8.3 mg/dL (8.5-10.1); CREATININE 0.8 mg/dL (0.6-1.0); GFR 70.9
[2021-06-15] MEDS: INSULIN LISPRO 300 UNITS/3 ML VIAL. SQ SCH ×3 (08:00→17:29)
[2021-06-15] MEDS: LISINOPRIL 20 MG TABLET PO SCH (08:27)
[2021-06-15] MEDS: ASPIRIN ENTERIC COATED 81 MG TABLET.DR. PO SCH (08:27)
[2021-06-15] MEDS: METOPROLOL TART IMMED RELEASE 25 MG TABLET. PO SCH ×2 (08:27→20:43)
[2021-06-15] MEDS: PHENAZOPYRIDINE 200 MG TABLET. PO SCH ×3 (08:28→20:44)
[2021-06-15] MEDS: amLODIPine BESYLATE 10 MG TABLET PO SCH (08:28)
[2021-06-15] MEDS: CHOLECALCIFEROL (VITAMIN D3) 1,000 UNIT TABLET PO SCH (08:28)
[2021-06-15] MEDS: NYSTATIN TOPICAL POWDER 15GM BOTTLE. TP SCH ×2 (08:28→20:44)
[2021-06-15] MEDS: GABAPENTIN 300 MG CAPSULE. PO SCH ×2 (08:28→20:43)
[2021-06-15] MEDS: LACTOBACILLUS RHAMNOSUS GG 1 CAPSULE. PO SCH ×2 (08:28→20:44)
[2021-06-15] MEDS ORDERED: ELECTROLYTE (NON-ICU) PROTOCOL. MC PRN (09:15)
[2021-06-15] MEDS: IPRATROPIUM/ALBUTEROL 20/100mcg/INH INHALER. INH SCH ×2 (17:30→20:42)
[2021-06-15] MEDS: DESIPRAMINE HCL 25 MG TABLET PO SCH (20:43)
[2021-06-15] MEDS: DEXAMETHASONE SOD PHOS 4 MG/ML VIAL. IVP SCH (20:43)
[2021-06-15] MEDS: ATORVASTATIN CALCIUM 20 MG TABLET PO SCH (20:43)
[2021-06-15] MEDS: AZITHROMYCIN 250 MG TABLET. PO SCH (20:43)
[2021-06-15] MEDS: diphenhydrAMINE HCL 25 MG CAPSULE PO SCH (20:43)
[2021-06-15] MEDS: ENOXAPARIN 40 MG/0.4 ML SYRINGE. SQ SCH (20:44)
[2021-06-15] MEDS: INSULIN GLARGINE SYRINGE. SQ SCH (20:46)
--- NOTE | 2021-06-15 22:17 | PN ---
SUBJECTIVE: A 71-year-old female came in with pneumonia, recent history of COVID-19 a few weeks ago. She is also having problems with other issues such as poorly controlled diabetes and morbid obesity. The patient seems to be making fairly good progress overall. The patient's chemistries show a low potassium of 3 and so we are going to go ahead and place her on a potassium supplement. Her A1c is 13 showing an extremely poor control obviously, I think she stopped taking all her medications at home for some reason. In any case, the patient's SARS has been repeat negative. Says she feels a little better, started her on an antidepressant. OBJECTIVE: VITAL SIGNS: Blood pressure 128/78, respirations 18, pulse 62, afebrile. GENERAL: The patient is alert and oriented. LUNGS: Diminished. Some rales and rhonchi noted. CARDIOVASCULAR: Regular sinus rhythm, S1, S2, without murmur, rub, thrill, or extra heart sound. ABDOMEN: Protuberant, soft, nontender. No hepatosplenomegaly. EXTREMITIES: No clubbing, cyanosis, nor edema. NEUROLOGIC: The patient is alert and oriented. Speech fluent, spontaneous, and appropriate. She looks good there as noted. LABORATORY DATA: On her chemistry labs, the potassium has come down to 3, sodium 137, BUN and creatinine holding steady at 17 and 0.8 with a GFR of 71. Blood sugars have come down nicely with the Lantus 15 units at bedtime along with her other mealtime Humalog. IMPRESSION: Bilateral lobe pneumonia, poorly controlled diabetes, morbid obesity, severe protein malnutrition, noncompliance of medications, depression, chronic kidney disease improved and hypokalemia. PLAN: We will continue to monitor her accordingly and continue with IV antibiotic therapy for her. ENID DR: Pa TID: [id number]
[2021-06-16 05:00] VITALS: BP 145/79
[2021-06-16 06:28] LABS: CALCIUM 8.4 mg/dL (8.5-10.1); CREATININE 0.8 mg/dL (0.6-1.0); GFR 70.9
[2021-06-16] MEDS: IPRATROPIUM/ALBUTEROL 20/100mcg/INH INHALER. INH SCH ×4 (08:00→22:06)
[2021-06-16] MEDS: INSULIN LISPRO 300 UNITS/3 ML VIAL. SQ SCH ×5 (08:46→17:06)
[2021-06-16] MEDS: ASPIRIN ENTERIC COATED 81 MG TABLET.DR. PO SCH (09:00)
[2021-06-16] MEDS: LISINOPRIL 20 MG TABLET PO SCH (09:00)
[2021-06-16] MEDS: LACTOBACILLUS RHAMNOSUS GG 1 CAPSULE. PO SCH ×2 (09:00→22:05)
[2021-06-16] MEDS: CHOLECALCIFEROL (VITAMIN D3) 1,000 UNIT TABLET PO SCH (09:00)
[2021-06-16] MEDS: METOPROLOL TART IMMED RELEASE 25 MG TABLET. PO SCH ×2 (09:01→22:05)
[2021-06-16] MEDS: amLODIPine BESYLATE 10 MG TABLET PO SCH (09:01)
[2021-06-16] MEDS: PHENAZOPYRIDINE 200 MG TABLET. PO SCH ×3 (09:01→22:05)
[2021-06-16] MEDS: NYSTATIN TOPICAL POWDER 15GM BOTTLE. TP SCH ×2 (09:01→22:06)
[2021-06-16] MEDS: GABAPENTIN 300 MG CAPSULE. PO SCH ×2 (09:01→22:04)
[2021-06-16] MEDS: DEXAMETHASONE SOD PHOS 4 MG/ML VIAL. IVP SCH ×2 (09:02→22:06)
[2021-06-16 16:24] VITALS: BP 115/57
[2021-06-16] MEDS: INSULIN GLARGINE SYRINGE. SQ SCH (19:15)
[2021-06-16 20:23] VITALS: BP 135/79
[2021-06-16] MEDS: ENOXAPARIN 40 MG/0.4 ML SYRINGE. SQ SCH (22:03)
[2021-06-16] MEDS: DESIPRAMINE HCL 25 MG TABLET PO SCH (22:04)
[2021-06-16] MEDS: AZITHROMYCIN 250 MG TABLET. PO SCH (22:04)
[2021-06-16] MEDS: ATORVASTATIN CALCIUM 20 MG TABLET PO SCH (22:04)
[2021-06-16] MEDS: diphenhydrAMINE HCL 25 MG CAPSULE PO SCH (22:06)
[2021-06-16 22:35] VITALS: BP 137/76
--- NOTE | 2021-06-16 22:59 | PN ---
SUBJECTIVE: A 71-year-old female came in with multiple medical problems including pneumonia, general lethargy, poorly controlled diabetes, morbid obesity, seems to be doing a little better, little bit more alert, started her on some Norpramin for her depression, her antibiotics for her pneumonia. The patient, although she has come back with positive for her COVID, this has been over approximately 2 weeks since she is probably just residual. We are trying to give her Combivent inhalers to help her with her breathing. OBJECTIVE: VITAL SIGNS: Blood pressure 115/70, respiratory rate 20, pulse 70, afebrile, 93 on CPAP, BiPAP at times. LUNGS: Diminished, but somewhat improved. CARDIOVASCULAR: Regular sinus rhythm. ABDOMEN: Soft, protuberant. EXTREMITIES: No clubbing, cyanosis. Trace edema. NEUROLOGIC: Stable, although somewhat depressed affect. LABORATORY DATA: The patient's chemistries show sodium 137, 4, 21 and 0.8. Sugars are still elevated. We put her on Decadron because of the COVID-19. She is on Lovenox. We will continue to monitor her carefully on these situations and increase her Lantus to hopefully twice a day and add another 10 units of insulin to her sliding scale. IMPRESSION: Bilateral lobe pneumonia, degenerative arthritis, poorly controlled diabetes, depression, morbid obesity, severe protein malnutrition, chronic kidney disease stage IIIA, post-COVID infection. PLAN: Continue with protocol. DICTATION ENDS HERE ENID DR: Pa TID: [id number]
[2021-06-17 07:14] LABS: CALCIUM 8.7 mg/dL (8.5-10.1); CREATININE 0.8 mg/dL (0.6-1.0); GFR 70.9
[2021-06-17] MEDS: IPRATROPIUM/ALBUTEROL 20/100mcg/INH INHALER. INH SCH (08:21)
[2021-06-17] MEDS: ASPIRIN ENTERIC COATED 81 MG TABLET.DR. PO SCH (08:21)
[2021-06-17] MEDS: PHENAZOPYRIDINE 200 MG TABLET. PO SCH ×3 (08:21→21:36)
[2021-06-17] MEDS: LACTOBACILLUS RHAMNOSUS GG 1 CAPSULE. PO SCH ×2 (08:22→21:39)
[2021-06-17] MEDS: amLODIPine BESYLATE 10 MG TABLET PO SCH (08:22)
[2021-06-17] MEDS: METOPROLOL TART IMMED RELEASE 25 MG TABLET. PO SCH ×2 (08:22→21:36)
[2021-06-17] MEDS: CHOLECALCIFEROL (VITAMIN D3) 1,000 UNIT TABLET PO SCH (08:22)
[2021-06-17] MEDS: GABAPENTIN 300 MG CAPSULE. PO SCH ×2 (08:22→21:38)
[2021-06-17] MEDS: DESIPRAMINE HCL 25 MG TABLET PO SCH ×2 (08:23→21:41)
[2021-06-17] MEDS: LISINOPRIL 20 MG TABLET PO SCH (08:23)
[2021-06-17] MEDS: DEXAMETHASONE SOD PHOS 4 MG/ML VIAL. IVP SCH ×2 (08:23→21:40)
[2021-06-17] MEDS: INSULIN LISPRO 300 UNITS/3 ML VIAL. SQ SCH ×6 (08:24→17:34)
[2021-06-17] MEDS: INSULIN GLARGINE SYRINGE. SQ SCH ×2 (08:56→21:40)
[2021-06-17] MEDS: NYSTATIN TOPICAL POWDER 15GM BOTTLE. TP SCH ×2 (08:56→21:41)
[2021-06-17 10:55] VITALS: BP 122/78
[2021-06-17 15:16] VITALS: BP 113/67
[2021-06-17] MEDS: IPRATRPIUM/ALBUTEROL 0.5/2.5MG 3 ML NEBU. NEB SCH ×2 (16:00→19:29)
[2021-06-17] MEDS ORDERED: INSULIN GLARGINE SYRINGE. SQ SCH (17:15)
[2021-06-17 20:20] VITALS: BP 119/65
[2021-06-17] MEDS: ATORVASTATIN CALCIUM 20 MG TABLET PO SCH (21:36)
[2021-06-17] MEDS: diphenhydrAMINE HCL 25 MG CAPSULE PO SCH (21:37)
[2021-06-17] MEDS: AZITHROMYCIN 250 MG TABLET. PO SCH (21:37)
[2021-06-17] MEDS: DOCUSATE SODIUM 100 MG CAPSULE PO PRN (21:38)
[2021-06-17] MEDS: FAMOTIDINE 20 MG TABLET PO SCH (21:39)
[2021-06-17] MEDS: ENOXAPARIN 40 MG/0.4 ML SYRINGE. SQ SCH (21:41)
--- NOTE | 2021-06-17 21:55 | PN ---
SUBJECTIVE: A 71-year-old female in with pneumonia and exacerbation of COPD, history of COVID-19 a couple of weeks ago. She still looks like she is feeling a little bit better and making some progress overall. We will switch her over to a situation where we can go ahead and give her DuoNeb treatments, monitoring her blood sugars. Also a situation, we have doubled up on her Lantus and we will continue to monitor her on that as her blood sugars are still on the high side. We will go ahead and increase the Lantus there. OBJECTIVE: VITAL SIGNS: Blood pressure 113/70, respiratory rate 20, pulse 70, afebrile, 91 on room air. GENERAL: The patient is alert and oriented, much more alert. LUNGS: Diminished throughout, but improved. CARDIOVASCULAR: Regular sinus rhythm. ABDOMEN: Protuberant, soft. EXTREMITIES: No clubbing, cyanosis or edema. NEUROLOGIC: Intact. IMPRESSION: Bilateral lobe pneumonia, history of COVID-19 within the last 2 weeks, acute respiratory distress, poorly controlled diabetes, morbid obesity, depression, severe protein malnutrition, chronic kidney disease, stage IIIa. ERMA/JAYSON DR: Pa TID: [id number]
[2021-06-18 05:58] VITALS: BP 158/84
[2021-06-18] MEDS: NYSTATIN TOPICAL POWDER 15GM BOTTLE. TP SCH ×2 (09:00→21:52)
[2021-06-18] MEDS: ZINC SULFATE 220 MG CAPSULE. PO SCH (09:28)
[2021-06-18] MEDS: ASPIRIN ENTERIC COATED 81 MG TABLET.DR. PO SCH (09:28)
[2021-06-18] MEDS: DEXAMETHASONE SOD PHOS 4 MG/ML VIAL. IVP SCH (09:28)
[2021-06-18] MEDS: LACTOBACILLUS RHAMNOSUS GG 1 CAPSULE. PO SCH ×2 (09:28→21:52)
[2021-06-18] MEDS: CHOLECALCIFEROL (VITAMIN D3) 1,000 UNIT TABLET PO SCH (09:28)
[2021-06-18] MEDS: LISINOPRIL 20 MG TABLET PO SCH (09:29)
[2021-06-18] MEDS: FAMOTIDINE 20 MG TABLET PO SCH ×2 (09:29→21:52)
[2021-06-18] MEDS: GABAPENTIN 300 MG CAPSULE. PO SCH ×2 (09:29→21:53)
[2021-06-18] MEDS: PHENAZOPYRIDINE 200 MG TABLET. PO SCH ×3 (09:29→21:52)
[2021-06-18] MEDS: ASCORBIC ACID 1,000 MG TABLET PO SCH (09:29)
[2021-06-18] MEDS: amLODIPine BESYLATE 10 MG TABLET PO SCH (09:30)
[2021-06-18] MEDS: INSULIN GLARGINE SYRINGE. SQ SCH ×2 (09:31→21:58)
[2021-06-18] MEDS: INSULIN LISPRO 300 UNITS/3 ML VIAL. SQ SCH ×6 (09:32→17:00)
[2021-06-18] MEDS: IPRATRPIUM/ALBUTEROL 0.5/2.5MG 3 ML NEBU. NEB SCH ×4 (09:37→18:58)
[2021-06-18] MEDS: DESIPRAMINE HCL 25 MG TABLET PO SCH ×2 (09:38→21:54)
[2021-06-18] MEDS: METOPROLOL TART IMMED RELEASE 25 MG TABLET. PO SCH ×2 (09:38→21:53)
[2021-06-18] MEDS: DEXAMETHASONE 4 MG TABLET PO SCH ×2 (11:00→21:52)
--- NOTE | 2021-06-18 11:33 | PN ---
DATE: 06/18/2021 SUBJECTIVE: A 71-year-old female with bilateral lobe pneumonia. The patient is resting fairly comfortably, making fairly good response to the increased in breathing treatments using DuoNeb as well as Decadron, which may be cut down as her sugars still remain elevated, but we will adjust her insulin accordingly to bring that blood sugar down into reasonable control. The patient otherwise has no major complaints. OBJECTIVE: VITAL SIGNS: Blood pressure 158/80, respiratory rate 18, pulse 70, afebrile, 94% on room air. GENERAL: The patient is alert and oriented. LUNGS: Diminished, but clearer than they have been. CARDIOVASCULAR: Regular sinus rhythm. ABDOMEN: Protuberant, soft, nontender. EXTREMITIES: No clubbing, cyanosis or edema. NEUROLOGIC: Intact. IMPRESSION: Bilateral lobe pneumonia, acute respiratory failure, poorly controlled diabetes, morbid obesity, depression, severe protein malnutrition, chronic kidney disease stage 3A. PLAN: Continue with present drug regimen, may increase her antidepressant medication. Adjust her blood pressure pills if necessary as well as diminish her Decadron treatments. ERMA/JAEL DR: ERMA/lito TID: [id number]
[2021-06-18 21:09] VITALS: BP 138/68
[2021-06-18] MEDS: AZITHROMYCIN 250 MG TABLET. PO SCH (21:52)
[2021-06-18] MEDS: ENOXAPARIN 40 MG/0.4 ML SYRINGE. SQ SCH (21:52)
[2021-06-18] MEDS: ATORVASTATIN CALCIUM 20 MG TABLET PO SCH (21:53)
[2021-06-18] MEDS: DOCUSATE SODIUM 100 MG CAPSULE PO PRN (21:53)
[2021-06-18] MEDS: diphenhydrAMINE HCL 25 MG CAPSULE PO SCH (21:53)
[2021-06-19 06:55] VITALS: BP 135/68
[2021-06-19] MEDS: IPRATRPIUM/ALBUTEROL 0.5/2.5MG 3 ML NEBU. NEB SCH ×4 (07:02→21:25)
[2021-06-19] MEDS: INSULIN LISPRO 300 UNITS/3 ML VIAL. SQ SCH ×6 (08:00→17:44)
[2021-06-19] MEDS: ASCORBIC ACID 1,000 MG TABLET PO SCH (08:03)
[2021-06-19] MEDS: METOPROLOL TART IMMED RELEASE 25 MG TABLET. PO SCH ×2 (08:03→20:59)
[2021-06-19] MEDS: LACTOBACILLUS RHAMNOSUS GG 1 CAPSULE. PO SCH ×2 (08:03→20:59)
[2021-06-19] MEDS: DEXAMETHASONE 4 MG TABLET PO SCH (08:03)
[2021-06-19] MEDS: ASPIRIN ENTERIC COATED 81 MG TABLET.DR. PO SCH (08:04)
[2021-06-19] MEDS: amLODIPine BESYLATE 10 MG TABLET PO SCH (08:04)
[2021-06-19] MEDS: GABAPENTIN 300 MG CAPSULE. PO SCH ×2 (08:04→20:59)
[2021-06-19] MEDS: FAMOTIDINE 20 MG TABLET PO SCH ×2 (08:04→20:59)
[2021-06-19] MEDS: CHOLECALCIFEROL (VITAMIN D3) 1,000 UNIT TABLET PO SCH (08:06)
[2021-06-19] MEDS: LISINOPRIL 20 MG TABLET PO SCH (08:06)
[2021-06-19] MEDS: PHENAZOPYRIDINE 200 MG TABLET. PO SCH ×3 (08:06→20:59)
[2021-06-19] MEDS: CITALOPRAM 10 MG TABLET. PO SCH (08:06)
[2021-06-19] MEDS: ZINC SULFATE 220 MG CAPSULE. PO SCH (08:06)
[2021-06-19] MEDS: NYSTATIN TOPICAL POWDER 15GM BOTTLE. TP SCH ×2 (08:07→21:03)
[2021-06-19] MEDS: DESIPRAMINE HCL 25 MG TABLET PO SCH ×2 (08:07→21:00)
[2021-06-19] MEDS: INSULIN GLARGINE SYRINGE. SQ SCH ×2 (09:00→21:07)
[2021-06-19 10:28] VITALS: BP 158/62
[2021-06-19 11:49] LABS: CALCIUM 8.5 mg/dL (8.5-10.1); CREATININE 0.8 mg/dL (0.6-1.0); GFR 70.9
[2021-06-19 15:33] VITALS: BP 111/69
--- NOTE | 2021-06-19 15:46 | RAD ---
EXAM: CHEST 2 VIEWS. HISTORY: Pneumonia. COMPARISON: 06/13/2021. FINDINGS: Frontal and lateral views of the chest are obtained. Bilateral patchy interstitial and airspace infiltrates have improved but not completely resolved. The re is no pneumothorax or pleural effusion. The heart is not enlarged. Surgical clips are noted in the right upper quadrant and left axilla. IMPRESSION: 1. Improving bilateral infiltrates. Electronically signed by: Abeba Hale MD (06/19/2021 3:43 PM) [id number]
[2021-06-19 19:46] VITALS: BP 127/75
--- NOTE | 2021-06-19 20:19 | PN ---
SUBJECTIVE: The patient with bilateral lobe pneumonia, probably secondary from previous history of COVID-19 infection about 2 weeks ago. The patient has remained afebrile, but does have problems with oxygenation where she does need oxygen at times and other times she does not, showing good progress I think overall OBJECTIVE: VITAL SIGNS: Blood pressure 158/62, respiratory rate 18, pulse 67, afebrile, room air 93. GENERAL: The patient otherwise seems to be resting fairly comfortably. LUNGS: Diminished throughout. CARDIAC: Regular sinus rhythm. ABDOMEN: Soft, nontender. EXTREMITIES: No clubbing, cyanosis or edema. NEUROLOGIC: Intact. We will repeat her chest x-ray and determine whether or not that shows any other complication. It should be improved and make further evaluation on her per those results. May try to get her into a rehab facility to continue to monitor. IMPRESSION: Bilateral lobe pneumonia, acute respiratory failure, history of COVID-19 infection 2 weeks ago. ERMA/EKT DR: Pa TID: [id number]
[2021-06-19] MEDS: ENOXAPARIN 40 MG/0.4 ML SYRINGE. SQ SCH (20:57)
[2021-06-19] MEDS: DOCUSATE SODIUM 100 MG CAPSULE PO PRN (20:59)
[2021-06-19] MEDS: ATORVASTATIN CALCIUM 20 MG TABLET PO SCH (21:00)
[2021-06-19] MEDS: AZITHROMYCIN 250 MG TABLET. PO SCH (21:00)
[2021-06-19] MEDS: diphenhydrAMINE HCL 25 MG CAPSULE PO SCH (21:00)
[2021-06-19] MEDS: predniSONE 20 MG TABLET PO SCH (21:01)
[2021-06-20 05:30] VITALS: BP 156/88
[2021-06-20] MEDS: IPRATRPIUM/ALBUTEROL 0.5/2.5MG 3 ML NEBU. NEB SCH ×2 (05:55→09:13)
[2021-06-20] MEDS: INSULIN LISPRO 300 UNITS/3 ML VIAL. SQ SCH ×4 (08:00→11:47)
[2021-06-20] MEDS: CHOLECALCIFEROL (VITAMIN D3) 1,000 UNIT TABLET PO SCH (08:02)
[2021-06-20] MEDS: amLODIPine BESYLATE 10 MG TABLET PO SCH (08:03)
[2021-06-20] MEDS: METOPROLOL TART IMMED RELEASE 25 MG TABLET. PO SCH (08:03)
[2021-06-20] MEDS: predniSONE 20 MG TABLET PO SCH (08:03)
[2021-06-20] MEDS: ASPIRIN ENTERIC COATED 81 MG TABLET.DR. PO SCH (08:03)
[2021-06-20] MEDS: PHENAZOPYRIDINE 200 MG TABLET. PO SCH ×2 (08:04→14:06)
[2021-06-20] MEDS: ASCORBIC ACID 1,000 MG TABLET PO SCH (08:04)
[2021-06-20] MEDS: LISINOPRIL 20 MG TABLET PO SCH (08:04)
[2021-06-20] MEDS: ZINC SULFATE 220 MG CAPSULE. PO SCH (08:04)
[2021-06-20] MEDS: CITALOPRAM 10 MG TABLET. PO SCH (08:04)
[2021-06-20] MEDS: GABAPENTIN 300 MG CAPSULE. PO SCH (08:05)
[2021-06-20] MEDS: LACTOBACILLUS RHAMNOSUS GG 1 CAPSULE. PO SCH (08:05)
[2021-06-20] MEDS: FAMOTIDINE 20 MG TABLET PO SCH (08:05)
[2021-06-20] MEDS: DESIPRAMINE HCL 25 MG TABLET PO SCH (08:06)
[2021-06-20] MEDS: NYSTATIN TOPICAL POWDER 15GM BOTTLE. TP SCH (08:15)
[2021-06-20] MEDS: INSULIN GLARGINE SYRINGE. SQ SCH (09:02)
[2021-06-20 10:58] VITALS: BP 117/71
[2021-06-20] MEDS ORDERED: INSU100I11 SQ (13:17)
[2021-06-20] MEDS ORDERED: GUAI600T47 PO (13:17)
[2021-06-20] MEDS ORDERED: INSU100V8 SQ (13:17)
[2021-06-20] MEDS ORDERED: DESI25TA PO (13:17)
[2021-06-20] MEDS ORDERED: IPRA3AMP29 NEB (13:17)
[2021-06-20] MEDS ORDERED: PRED20TA PO (13:17)
[2021-06-20] MEDS ORDERED: LEVO500T9 PO (13:18)
--- NOTE | 2021-07-02 13:31 | DS ---
DATE OF DISCHARGE: 06/20/2021 HOSPITAL COURSE: A 71-year-old female came in through the Emergency Room with known COVID positive. The patient had increased weakness, experiencing extreme shortness of breath. The patient was admitted for her community-acquired pneumonia, post-COVID infection, type 2 diabetes, poorly controlled, morbid obesity, multiple risk factors there. The patient was admitted, placed on IV antibiotic therapy, steroids and insulin was used to control her blood sugar along with dexamethasone. The patient was markedly depressed. We started her on desipramine as well as citalopram for her depression. The patient was controlled with her blood pressure and tapered down on her dexamethasone to prednisone. The patient made good progress during the rest of her hospitalization. The patient was on a CPAP 93%. The patient's blood pressure 117/71, respirations 16, pulse 70, afebrile. The patient was positive as noted for PCR on her COVID. Blood sugars were monitored, of course being on steroids were elevated. Otherwise, the patient made good progress during the rest of her hospitalization and was discharged home with home health and make further evaluation on her as indicated per those responses. FINAL DIAGNOSES: Include that of bilateral lobe pneumonia, acute respiratory failure, sepsis, poorly controlled diabetes, morbid obesity, depression, history of COVID-19 within the last 2 weeks precipitating her pneumonic process, severe protein malnutrition, chronic kidney disease stage III-A. The patient will continue to be monitored. See MRAD. Home health to follow and make further evaluation on her and be on a diabetic diet. ERMA/JAEL DR: Pa TID: [id number]
== END 2021-06-20 15:30 | disposition home or self-care (01) | DRG 871 ==
LOC: ER 15:37 → 1 SOUTH 18:18
PROVIDERS: ADMIT Family Medicine; ATTEND Family Medicine
PROC: 5A09357 Assistance with Respiratory Ventilation, Less than 24 Consecutive Hours, Continuous Positive Airway Pressure (ICD-10-PCS; 2021-06-15)
PROC: 5A09357 Assistance with Respiratory Ventilation, Less than 24 Consecutive Hours, Continuous Positive Airway Pressure (ICD-10-PCS; 2021-06-16)
PROC: 5A09357 Assistance with Respiratory Ventilation, Less than 24 Consecutive Hours, Continuous Positive Airway Pressure (ICD-10-PCS; 2021-06-17)
PROC: 5A09357 Assistance with Respiratory Ventilation, Less than 24 Consecutive Hours, Continuous Positive Airway Pressure (ICD-10-PCS; 2021-06-18)
PROC: 5A09357 Assistance with Respiratory Ventilation, Less than 24 Consecutive Hours, Continuous Positive Airway Pressure (ICD-10-PCS; 2021-06-19)
PROC: 5A09357 Assistance with Respiratory Ventilation, Less than 24 Consecutive Hours, Continuous Positive Airway Pressure (ICD-10-PCS; principal; 2021-06-20)
DX: A41.9 Sepsis, unspecified organism (principal); J15.6 Pneumonia due to other Gram-negative bacteria; E43 Unspecified severe protein-calorie malnutrition; J96.00 Acute respiratory failure, unspecified whether with hypoxia or hypercapnia; J15.9 Unspecified bacterial pneumonia; J44.0 Chronic obstructive pulmonary disease with (acute) lower respiratory infection; N39.0 Urinary tract infection, site not specified; B37.2 Candidiasis of skin and nail; B95.2 Enterococcus as the cause of diseases classified elsewhere; E11.22 Type 2 diabetes mellitus with diabetic chronic kidney disease; E11.65 Type 2 diabetes mellitus with hyperglycemia; E66.01 Morbid (severe) obesity due to excess calories; E87.6 Hypokalemia; F32.A Depression, unspecified; I12.9 Hypertensive chronic kidney disease with stage 1 through stage 4 chronic kidney disease, or unspecified chronic kidney disease; M16.0 Bilateral primary osteoarthritis of hip; N18.31 Chronic kidney disease, stage 3a; W19.XXXA Unspecified fall, initial encounter; W22.03XA Walked into furniture, initial encounter; Z79.4 Long term (current) use of insulin; Z81.8 Family history of other mental and behavioral disorders; Z83.3 Family history of diabetes mellitus; Z85.41 Personal history of malignant neoplasm of cervix uteri; Z86.73 Personal history of transient ischemic attack (TIA), and cerebral infarction without residual deficits; Z90.49 Acquired absence of other specified parts of digestive tract; Z90.710 Acquired absence of both cervix and uterus; Z91.14 Patient's other noncompliance with medication regimen; Z86.16 Personal history of COVID-19; Z68.34 Body mass index [BMI] 34.0-34.9, adult
CPT/HCPCS: 36415; 71045; 71046; 72072; 73521; 80048; 80053; 82947; 83036; 83605; 83690; 83735; 85025; 87426; 93005; 94640; 96360; J0696; J1100; J1650; J1815; J7512; J8540; Q0162; Q0163; U0003; 97530; 99285-25; J7030